=== PATIENT | female | born 1940 | race Caucasian/White ===

== ENCOUNTER 2016-08-26 14:33 | Inpatient (IN) | payer OTHER ==
[2016-08-26] MEDS ORDERED: ASPIRIN 81 MG CHEWABLE TABLETS PO ONE (16:44)
--- NOTE | 2016-08-26 16:47 | PDOC ---
History of Present Illness - History of Present Illness Initial Comments: 08/26/16 17:54 The patient is a 75-year-old female with a significant past medical history of hypertension, coronary disease, atrial fibrillation on Coumadin, and pacemaker, who presents to the emergency department for palpitations and chest pressure today. She states her palpitations have been intermittent for about a week. The patient states that today she experienced an episode of chest pressure that radiated to her back but now resolved. She states she felt lightheaded with her palpitations. She reports she is due for a check up of her pacemaker with [employer] this upcoming Wednesday. She denies any recent illnesses, fevers, chills, cough, vomiting. She denies chest pain right now at this moment but feels generally fatigued. Allergies: Penicillins PCP - Dr. Carbone <Fidelia Vásquez - Last Filed: 08/26/16 18:46> - General History Source: Patient, Family, Old Records Exam Limitations: No Limitations <Anthony Boles - Last Filed: 08/26/16 18:50> - General Chief Complaint: Palpitations Stated Complaint: HEART PALPITATIONS Time Seen by Provider: 08/26/16 16:18 Past History <Fidelia Vásquez - Last Filed: 08/26/16 18:46> - Past Medical History Anemia: No Asthma: No Cancer: Yes (SKIN CA- EARLOBE) Cardiac Disorders: Yes (CORONARY ARTERY DISEASE) CVA: No COPD: No CHF: No Dementia: No Diabetes: No GI Disorders: Yes (GASTRITIS, diverticlitis) Disorders: No HTN: Yes Hypercholesterolemia: No Liver Disease: (FATTY LIVER) Suicide Attempt (Hx): No Seizures: No Thyroid Disease: No - Surgical History Abdominal Surgery: No Appendectomy: No Cardiac Surgery: Yes (PACEMAKER IMPLANT-[employer]-02/2011) Cholecystectomy: No Lung Surgery: No Neurologic Surgery: No Orthopedic Surgery: No - Family Disease History Family Disease History: Heart Disease: Father - Immunization History Immunization Up to Date: Yes - Psycho/Social/Smoking Cessation Hx Anxiety: No Suicidal Ideation: No Smoking Status: Yes Smoking History: Never smoked Have you smoked in the past 12 months: No Number of Cigarettes Smoked Daily: 0 If you are a former smoker, when did you quit?: 25 yrs Hx Alcohol Use: No Drug/Substance Use Hx: No Substance Use Type: None Hx Substance Use Treatment: No <Humaira Bolesel - Last Filed: 08/26/16 18:50> - Past Medical History Allergies/Adverse Reactions: Allergies Allergy/AdvReac Type Severity Reaction Status Date / Time Penicillins AdvReac Itching Verified 08/26/16 16:55 Home Medications: Ambulatory Orders Warfarin Sodium [Coumadin] 5 mg PO ASDIR 06/07/14 Sotalol HCl [Betapace -] 80 mg PO BID #28 tablet 06/10/14 Esomeprazole Mag Trihydrate [Nexium] 40 mg PO DAILY 11/22/14 Diltiazem Cd [Cardizem Cd -] 300 mg PO DAILY #30 cap.cd.24h 03/15/15 Valsartan [Diovan] 160 mg PO DAILY #14 tablet 03/15/15 Warfarin Na [Coumadin] 2.5 mg PO ASDIR 09/24/15 Review of Systems - Review of Systems Able to Perform ROS?: Yes Comments:: 08/26/16 17:54 GENERAL/CONSTITUTIONAL: No fever or chills. No weakness. HEAD, EYES, EARS, NOSE AND THROAT: No change in vision. No ear pain or discharge. No sore throat. CARDIOVASCULAR: (+) chest pressure and palpitations. No chest pain or shortness of breath. RESPIRATORY: No cough, wheezing, or hemoptysis. GASTROINTESTINAL: No nausea, vomiting, diarrhea or constipation. GENITOURINARY: No dysuria, frequency, or change in urination. MUSCULOSKELETAL: No joint or muscle swelling or pain. No neck or back pain. SKIN: No rash NEUROLOGIC: No headache, vertigo, loss of consciousness, or change in strength/ sensation. ENDOCRINE: No increased thirst. No abnormal weight change. HEMATOLOGIC/LYMPHATIC: No anemia, easy bleeding, or history of blood clots. ALLERGIC/IMMUNOLOGIC: No hives or skin allergy. <Fidelia Vásquez - Last Filed: 08/26/16 18:46> *Physical Exam - Vital Signs Last Vital Signs Temp Pulse Resp BP Pulse Ox 97.7 F 60 20 138/50 97 08/26/16 14:37 08/26/16 14:37 08/26/16 14:37 08/26/16 14:37 08/26/16 14:37 - Physical Exam Comments: 08/26/16 17:55 GENERAL: Awake, alert, and fully oriented, in no acute distress HEAD: No signs of trauma EYES: PERRLA, EOMI, sclera anicteric, conjunctiva clear ENT: Auricles normal inspection, hearing grossly normal, nares patent, oropharynx clear without exudates. Moist mucosa NECK: Normal ROM, supple, no lymphadenopathy, JVD, or masses LUNGS: Breath sounds equal, clear to auscultation bilaterally. No wheezes, and no crackles HEART: (+) Pacemaker on left. Regular rate and rhythm, normal S1 and S2, no murmurs, rubs or gallops ABDOMEN: Soft, nontender, normoactive bowel sounds. No guarding, no rebound. No masses EXTREMITIES: Normal range of motion, no edema. No clubbing or cyanosis. No cords, erythema, or tenderness NEUROLOGICAL: Cranial nerves II-XII intact. Normal speech, normal gait. Sensation intact in upper and lower extremities. 5/5 motor strength in upper and lower extremities. No pronator drift. Finger to nose intact. Rapid alternations intact. SKIN: Warm, Dry, normal turgor, no rashes or lesions noted. <Fidelia Vásquez - Last Filed: 08/26/16 18:46> - Vital Signs Last Vital Signs Temp Pulse Resp BP Pulse Ox 97.7 F 60 20 138/50 97 08/26/16 14:37 08/26/16 14:37 08/26/16 14:37 08/26/16 14:37 08/26/16 14:37 <Anthony Boles - Last Filed: 08/26/16 18:50> Heart Score/ECG Review - History History: Moderately suspicious - Electrocardiogram EKG: Non specific repolarization disturbance - Age Age: >/= 65 - Risk Factors Based on the list above the patient has:: >/=3 risk factors or Hx atherosclerotic disease - Troponin Troponin: </= normal limit - Score Heart Score - Total: 6 #1 ECG reviewed & interpreted by me at: 17:00 08/26/16 17:04 Paced, LBBB (old), QTC 524 msec, scarbossa negative <Anthony Boles - Last Filed: 08/26/16 18:50> ED Treatment Course - LABORATORY CBC & Chemistry Diagram: 08/26/16 16:40 08/26/16 16:40 - ADDITIONAL ORDERS Additional order review: Laboratory Results 08/26/16 08/26/16 16:40 16:40 INR 2.34 H PTT (Actin FS) 46.6 H Sodium 141 Potassium 4.5 Chloride 106 Carbon Dioxide 28 Anion Gap 7 L BUN 14 Creatinine 0.9 Creat Clearance w eGFR > 60 Random Glucose 107 H Calcium 8.7 Total Bilirubin 0.2 AST 18 D ALT 16 D Alkaline Phosphatase 69 Creatine Kinase 66 Troponin I < 0.02 B-Natriuretic Peptide 341.88 Total Protein 7.2 Albumin 3.6 TSH 2.68 08/26/16 16:40 RBC 4.36 MCV 89.2 MCHC 31.6 L RDW 15.1 MPV 8.5 Neutrophils % 63.3 Lymphocytes % 22.8 Monocytes % 9.9 Eosinophils % 3.1 Basophils % 0.9 - RADIOLOGY Radiograph Interpretation: 08/26/16 18:46 CXR was read by Dr. Mendiola at 17:15 Impression: interval mild bibasal atelectatic changes without definite infiltrates - Medications Given in the ED: ED Medications Discontinued Medications Generic Name Dose Route Start Last Admin Trade Name Freq PRN Reason Stop Dose Admin Aspirin 162 mg 08/26/16 16:44 08/26/16 16:54 Asa - PO 08/26/16 16:45 Not Given ONCE ONE <Fidelia Vásquez - Last Filed: 08/26/16 18:46> - LABORATORY CBC & Chemistry Diagram: 08/26/16 16:40 08/26/16 16:40 - RADIOLOGY Radiology Studies Ordered: Category Date Time Status CHEST X-RAY PORTABLE* [RAD] Stat Radiology 08/26/16 16:20 Ordered <Anthony Boles - Last Filed: 08/26/16 18:50> Medical Decision Making - Medical Decision Making 08/26/16 18:12 [employer] was called for interrogation of the patient's pacemaker ([id number] [phone]) at 17:10. The digital media representative returned the call at 17:16 and the patient's case was discussed. 08/26/16 18:23 The hospitalist aura was paged at this time for admission of Dr. Carbone's patient. <Fidelia Vásquez - Last Filed: 08/26/16 18:46> - Medical Decision Making 08/26/16 16:45 A portion of this note was documented by scribe services under my direction. I have reviewed the details of the note, within reason, and agree with the documentation with the following case summary and management plan written by me. Patient treated in the ED. Nursing notes are reviewed and incorporated into the medical decision-making. Vital signs reviewed. Peripheral IV access obtained by the nurse, laboratory studies are drawn and sent, reviewed and interpreted by myself. Vital Signs Temp Pulse Resp BP Pulse Ox 97.7 F 60 20 138/50 97 08/26/16 14:37 08/26/16 14:37 08/26/16 14:37 08/26/16 14:37 08/26/16 14:37 75-year-old female with history of hypertension, coronary disease, atrial fibrillation on Coumadin, pacemaker presents to the emergency department for palpitations and chest pressure. She is had an intermittent rapid palpitations that come and go for the last week. However, she noted today that she had an episode of chest pressure that radiated to the back but now resolved. She felt lightheaded with her palpitations. She is due for check up of her pacemaker with [employer] this upcoming Wednesday. She denies any recent illnesses, fevers, chills, cough, vomiting. Denies chest pain right now at this moment but feels generally fatigued. The differential is broad but reportedly must rule out AR. With the palpitations and cardiac disease, must rule out atrial fibrilation with rapid ventricular response, ventricular dysrhythmias or other arrhythmias. We'll need to rule out other metabolic causes as well as infectious causes. Ultram, the patient benefit from an observation in the hospital. 08/26/16 18:48 Chest x-ray reviewed. No infiltrates appreciated. CBC, BMP 08/26/16 16:40 08/26/16 16:40 CMP Sodium 141 mmol/L (136-145) 08/26/16 16:40 Potassium 4.5 mmol/L (3.5-5.1) 08/26/16 16:40 Chloride 106 mmol/L (98-107) 08/26/16 16:40 Carbon Dioxide 28 mmol/L (21-32) 08/26/16 16:40 Anion Gap 7 (8-16) L 08/26/16 16:40 BUN 14 mg/dL (7-18) 08/26/16 16:40 Creatinine 0.9 mg/dL (0.55-1.02) 08/26/16 16:40 Creat Clearance w eGFR > 60 (>60) 08/26/16 16:40 Random Glucose 107 mg/dL (74-106) H 08/26/16 16:40 Calcium 8.7 mg/dL (8.5-10.1) 08/26/16 16:40 Total Bilirubin 0.2 mg/dL (0.2-1.0) 08/26/16 16:40 AST 18 U/L (15-37) D 08/26/16 16:40 ALT 16 U/L (12-78) D 08/26/16 16:40 Alkaline Phosphatase 69 U/L (45-117) 08/26/16 16:40 Creatine Kinase 66 IU/L (26-192) 08/26/16 16:40 Troponin I < 0.02 ng/ml (0.00-0.05) 08/26/16 16:40 B-Natriuretic Peptide 341.88 pg/ml (5-450) 08/26/16 16:40 Total Protein 7.2 g/dl (6.4-8.2) 08/26/16 16:40 Albumin 3.6 g/dl (3.4-5.0) 08/26/16 16:40 TSH 2.68 uIU/ml (0.358-3.74) 08/26/16 16:40 Urine Test Results Urine Color Colorless 08/26/16 17:50 Urine Appearance Clear 08/26/16 17:50 Urine pH 7.0 (5.0-8.0) 08/26/16 17:50 Ur Specific [place] 1.005 (1.001-1.035) 08/26/16 17:50 Urine Protein Negative (NEGATIVE) 08/26/16 17:50 Urine Glucose (UA) Negative (NEGATIVE) 08/26/16 17:50 Urine Ketones Negative (NEGATIVE) 08/26/16 17:50 Urine Blood 2+ (NEGATIVE) H 08/26/16 17:50 Urine Nitrite Negative (NEGATIVE) 08/26/16 17:50 Urine Bilirubin Negative (NEGATIVE) 08/26/16 17:50 Ur Leukocyte Esterase Negative (NEGATIVE) 08/26/16 17:50 Urine RBC 4 /hpf (0-3) 01/04/17 17:50 Urine WBC <1 /hpf (3-5) 08/26/16 17:50 Ur Epithelial Cells Rare /hpf (FEW) 08/26/16 17:50 Labs reviewed. Negative troponin. Case discussed with [employer]. They will place on her on schedule tomorrow for interrogation. Pt's residential roofer is Dr. Ng's group. Case discussed with Dr. Schofield who accepts the patient for telemetry admission. Pt was given aspirin but she refused, given that she is concerned about taking coumadin and afraid of excessive bleeding. <Anthony Boles - Last Filed: 08/26/16 18:50> *DC/Admit/Observation/Transfer - Attestations Scribe Attestion: 08/26/16 17:55 Documentation prepared by Fidelia Vásquez, acting as certified medical records coder for Anthony Boles MD, MD <Fidelia Vásquez - Last Filed: 08/26/16 18:46> - Discharge Dispostion Admit: Yes <Anthony Boles - Last Filed: 08/26/16 18:50> Diagnosis at time of Disposition: Heart palpitations Chest pain Qualifiers: Chest pain type: unspecified Qualified Code(s): R07.9 - Chest pain, unspecified - Discharge Dispostion Condition at time of disposition: Stable - Referrals Referrals: Ellen Carbone MD [Primary Care Provider] -
[2016-08-26] MEDS ORDERED: ASPIRIN 81 MG CHEWABLE TABLETS ONE (16:50)
[2016-08-26 16:58] LABS: BASOPHIL 0.9 % (0-2.0); EOSINOPHIL 3.1 % (0-4.5); MCH 28.2 pg (25.7-33.7); MCHC 31.6 g/dl (32.0-36.0); MEAN CELL VOLUME 89.2 fl (80-96); MEAN PLT VOLUME 8.5 fl (7.5-11.1); NEUTROPHILS 63.3 % (42.8-82.8); PLATELET COUNT 239 K/MM3 (134-434); RDW 15.1 % (11.6-15.6); WHITE BLOOD COUNT 9.7 K/mm3 (4.0-10.0)
[2016-08-26 17:18] LABS: INR 2.34 (0.82-1.09); PROTHROMBIN TIME (PATIENT) 26.2 SEC (9.98-11.88)
[2016-08-26 17:21] LABS: ACTIVATED PTT 46.6 SECONDS (26.9-34.4)
[2016-08-26 17:28] LABS: ALBUMIN 3.6 g/dl (3.4-5.0); ANION GAP 7 (8-16); BILIRUBIN,TOTAL 0.2 mg/dL (0.2-1.0); CALCIUM 8.7 mg/dL (8.5-10.1); CO2 28 mmol/L (21-32); CREATININE 0.9 mg/dL (0.55-1.02); GLUCOSE,RANDOM 107 mg/dL (74-106); SGOT/AST 18 U/L (15-37); SGPT/ALT 16 U/L (12-78); TOT PROT 7.2 g/dl (6.4-8.2)
[2016-08-26 17:36] LABS: ALK PHOS 69 U/L (45-117); THYROID STIMULATING HORMONE 2.68 uIU/ml (0.358-3.74); TROPONIN I < 0.02 ng/ml (0.00-0.05)
[2016-08-26 18:08] LABS: URINE APPEARANCE CLEAR; URINE BILIRUBIN NEGATIVE (NEGATIVE); URINE COLOR COLORLESS; URINE GLUCOSE (UA) NEGATIVE (NEGATIVE); URINE KETONE NEGATIVE (NEGATIVE); URINE LEUK ESTERASE NEGATIVE (NEGATIVE); URINE NITRITE NEGATIVE (NEGATIVE); URINE PROTEIN NEGATIVE (NEGATIVE); URINE UROBILINOGEN NEGATIVE E.U./dl (0.2-1.0)
[2016-08-26 18:10] LABS: URINE BLOOD 2+ (NEGATIVE)
[2016-08-26 18:13] LABS: URINE RBC 4 /hpf (0-3); URINE WBC <1 /hpf (3-5)
[2016-08-26] MEDS ORDERED: WARFARIN NA 5 MG TABLET (UD) PO SCH (20:00)
[2016-08-26] MEDS ORDERED: ACETAMINOPHEN 325 MG TABLET (FP) PO PRN (20:02)
--- NOTE | 2016-08-26 20:14 | PN ---
<Evi Medina - Last Filed: 08/26/16 20:13> Teaching Attending Note Name of Resident: Raquelkeven Salazar <Cyndie Curiel - Last Filed: 08/27/16 02:33> Teaching Attending Note ATTENDING PHYSICIAN STATEMENT I saw and evaluated the patient. I reviewed the resident's note and discussed the case with the resident. I agree with the resident's findings and plan as documented. SUBJECTIVE: 75 year old female who presented to the ED with palpitations for 1 day. History significant for hypertension, dyslipidemia, CAD with pacemaker, Afib (on Coumadin). Patient follows up with her PMD for her checking her INR and is currently on Coumadin 5 mg on M,, and 2.5 mg on , , Wed, Wed. Patient reports following up with her grain mill worker every 3 months and is due for her ICD interrogation this Wednesday. She denies nausea, vomiting or regurgitation. She refuses influenza vaccination. Patient denies any chest pain, SOB or peripheral edema. PMD - Dr. Carbone Insurance Advisor - Dr. Scott PMH: as documented above PSH: pacemaker placement FMH: father - heart disease SH: former smoker quit 25 years ago, denies alcohol and illicit drug use. lives in assisted living OBJECTIVE: Physical: VS: Last Vital Signs Temp Pulse Resp BP Pulse Ox 97.7 F 58 L 16 157/87 99 08/26/16 14:37 08/26/16 20:02 08/26/16 20:02 08/26/16 20:02 08/26/16 20:02 GENERAL: Awake, alert, and fully oriented, in no acute distress HEENT: Atraumatic. PERRLA, EOMI. Moist mucosa. No JVD, no bruis LUNGS: Left mild basal crackles. No distress, speaks full sentences. HEART: Regular rate and rhythm, normal S1 and S2, no murmurs, rubs or gallops, peripheral pulses normal and equal bilaterally. ABDOMEN: Soft, nontender, normoactive bowel sounds. No guarding, no rebound. No masses EXTREMITIES: trace peripheral edema. Normal inspection, Normal range of motion No clubbing or cyanosis. NEUROLOGICAL: Cranial nerves II through XII grossly intact. Normal speech, No focal sensorimotor deficits SKIN: Warm, Dry, normal turgor, no rashes or lesions noted. LABS: CBCD WBC 9.7 K/mm3 (4.0-10.0) 08/26/16 16:40 RBC 4.36 M/mm3 (3.60-5.2) 08/26/16 16:40 Hgb 12.3 GM/dL (10.7-15.3) 08/26/16 16:40 Hct 38.9 % (32.4-45.2) 08/26/16 16:40 MCV 89.2 fl (80-96) 08/26/16 16:40 MCHC 31.6 g/dl (32.0-36.0) L 08/26/16 16:40 RDW 15.1 % (11.6-15.6) 08/26/16 16:40 Plt Count 239 K/MM3 (134-434) 08/26/16 16:40 MPV 8.5 fl (7.5-11.1) 08/26/16 16:40 CMP Sodium 141 mmol/L (136-145) 08/26/16 16:40 Potassium 4.5 mmol/L (3.5-5.1) 08/26/16 16:40 Chloride 106 mmol/L (98-107) 08/26/16 16:40 Carbon Dioxide 28 mmol/L (21-32) 08/26/16 16:40 Anion Gap 7 (8-16) L 08/26/16 16:40 BUN 14 mg/dL (7-18) 08/26/16 16:40 Creatinine 0.9 mg/dL (0.55-1.02) 08/26/16 16:40 Creat Clearance w eGFR > 60 (>60) 08/26/16 16:40 Calcium 8.7 mg/dL (8.5-10.1) 08/26/16 16:40 Total Bilirubin 0.2 mg/dL (0.2-1.0) 08/26/16 16:40 AST 18 U/L (15-37) D 08/26/16 16:40 ALT 16 U/L (12-78) D 08/26/16 16:40 Alkaline Phosphatase 69 U/L (45-117) 08/26/16 16:40 Total Protein 7.2 g/dl (6.4-8.2) 08/26/16 16:40 Albumin 3.6 g/dl (3.4-5.0) 08/26/16 16:40 IMAGING: CXR: Impression: Interval mild bibasilar atelectatic changes without definite infiltrates ASSESSMENT AND PLAN: Palpitations most likely secondary to Afib, rate controlled, thyroid disorder ruled out. Rule out ACS. Heart score of 6. - ICD interrogated - Cardiology consult - NAFISA score of 3 - Trend troponins - Continue as cardiac monitoring Afib with subtherapeutic INR 2.3 - Coumadin 5 mg tonight - Repeat coagulation profile in AM - Continue home meds Place on Observation-Tele. Documentation prepared by Cyndie Curiel, acting as medical dir for Evi Medina M.D.
[2016-08-26] MEDS ORDERED: WARFARIN NA 5 MG TABLET (UD) ONE (20:52)
[2016-08-26] MEDS ORDERED: ATORVASTATIN CA 40 MG TABLET (FP) PO SCH (22:00)
--- NOTE | 2016-08-26 22:10 | HP ---
CHIEF COMPLAINT: " i had palpitations but i feel fine now" PCP: Dr. Carbone HISTORY OF PRESENT ILLNESS: This is a 75 yo F with PMH of HTN, CAD, a-fib on Coum, and pacemaker, who presents due to chest discomfort and palpitations. Her palpitations have been on and off for the past week, associated with mild lightheadedness. She states that she has not had any palpitations for 2 month prior to this onset. This morning she experienced an episode of diffuse chest pressure that radiated to her back. She has had similar chest pressure in the past. It lasted an hour and resolved spontaneously. She is scheduled for a pacemaker interrogation with [employer] on Wednesday. She denies chest pain, sob, cough, n/v, diaphoresis, h/a, abd pain or recent illnesses. She currently feels well. ER course was notable for: (1)EKG, CXR (2)Labs (3)asa Recent Travel: denies PAST MEDICAL HISTORY: as above PAST SURGICAL HISTORY: Social History: lives at home Smoking: denies Alcohol: denies Drugs: denies Family History: Allergies Penicillins Adverse Reaction (Verified 08/26/16 16:55) Itching HOME MEDICATIONS: Medication Instructions Recorded Warfarin Sodium [Coumadin] 5 mg PO ASDIR 06/07/14 Sotalol HCl [Betapace -] 80 mg PO BID #28 tablet 06/10/14 Esomeprazole Mag Trihydrate 40 mg PO DAILY 11/22/14 [Nexium] Diltiazem Cd [Cardizem Cd -] 300 mg PO DAILY #30 cap.cd.24h 03/15/15 Valsartan [Diovan] 160 mg PO DAILY #14 tablet 03/15/15 Warfarin Na [Coumadin] 2.5 mg PO ASDIR 09/24/15 Selected Entries 08/26/16 08/26/16 14:37 20:02 Temperature 97.7 F Pulse Rate 60 Pulse Rate [ 58 L Left] Respiratory 16 Rate Blood Pressure 138/50 Blood Pressure 157/87 [Arm] O2 Sat by Pulse 99 Oximetry (%) Oxygen Delivery Room Air Method REVIEW OF SYSTEMS CONSTITUTIONAL: Absent: fever, chills, diaphoresis, generalized weakness HEENT: Absent: rhinorrhea, difficulty swallowing CARDIOVASCULAR: Absent: chest pain, syncope, peripheral edema RESPIRATORY: Absent: cough, shortness of breath, orthopnea GASTROINTESTINAL: Absent: abdominal pain, abdominal distension, nausea, vomiting, diarrhea, constipation GENITOURINARY: Absent: dysuria, flank pain MUSCULOSKELETAL: Absent: neck pain SKIN: Absent: rash HEMATOLOGIC/IMMUNOLOGIC: Absent: frequent infections ENDOCRINE: Absent: unexplained weight gain, unexplained weight loss NEUROLOGIC: Absent: headache, focal weakness or paresthesias PSYCHIATRIC: Absent: anxiety Laboratory Tests 08/26/16 08/26/16 08/26/16 16:40 16:40 16:40 WBC 9.7 Hgb 12.3 Hct 38.9 Plt Count 239 INR 2.34 H PTT (Actin FS) 46.6 H Sodium 141 Potassium 4.5 Chloride 106 Carbon Dioxide 28 Anion Gap 7 L BUN 14 Creatinine 0.9 Creat Clearance w eGFR > 60 Random Glucose 107 H Calcium 8.7 Total Bilirubin 0.2 AST 18 D ALT 16 D Alkaline Phosphatase 69 Creatine Kinase 66 Troponin I < 0.02 B-Natriuretic Peptide 341.88 Total Protein 7.2 Albumin 3.6 TSH 2.68 Urine Color Urine Appearance Urine pH Ur Specific [place] Urine Protein Urine Glucose (UA) Urine Ketones Urine Blood Urine Nitrite Urine Bilirubin Urine Urobilinogen Ur Leukocyte Esterase Urine RBC Urine WBC Ur Epithelial Cells 08/26/16 17:50 WBC Hgb Hct Plt Count INR PTT (Actin FS) Sodium Potassium Chloride Carbon Dioxide Anion Gap BUN Creatinine Creat Clearance w eGFR Random Glucose Calcium Total Bilirubin AST ALT Alkaline Phosphatase Creatine Kinase Troponin I B-Natriuretic Peptide Total Protein Albumin TSH Urine Color Colorless Urine Appearance Clear Urine pH 7.0 Ur Specific [place] 1.005 Urine Protein Negative Urine Glucose (UA) Negative Urine Ketones Negative Urine Blood 2+ H Urine Nitrite Negative Urine Bilirubin Negative Urine Urobilinogen Negative Ur Leukocyte Esterase Negative Urine RBC 4 Urine WBC <1 Ur Epithelial Cells Rare PHYSICAL EXAMINATION GENERAL: Awake, alert, and fully oriented, in no acute distress. HEAD: Normal with no signs of trauma. EYES: Pupils equal, round and reactive to light, extraocular movements intact, sclera anicteric, conjunctiva clear. EARS, NOSE, THROAT: Moist mucous membranes. NECK: supple without JVD LUNGS: Breath sounds equal, clear to auscultation bilaterally. HEART: Regular rate and rhythm, normal S1 and S2 ABDOMEN: Soft, nontender, not distended, normoactive bowel sounds MUSCULOSKELETAL: No CVA tenderness. UPPER EXTREMITIES: 2+ pulses, warm, well-perfused. No peripheral edema. LOWER EXTREMITIES: 2+ pulses, warm, well-perfused. No calf tenderness. No peripheral edema. NEUROLOGICAL: Cranial nerves II-XII grossly intact. Normal speech. PSYCHIATRIC: Cooperative. Good eye contact. Appropriate mood and affect. SKIN: Warm, dry ASSESSMENT/PLAN: This is a 75 yo F with PMH of HTN, CAD, a-fib on Coum, and pacemaker, who presents due to chest discomfort and palpitations. palpitations x 1 w, chest pressure x 1 hr. CXRL mild bibasilar atelectasis Angina pectoralis -likely due to demand ischemia in setting of rapid a-fib -now resolved -EKG regular sinus, no ACS -trop negative x1, trend trop -tele monitoring -continue asa -f/u lipid profile, a1c, TFT Atrial fibrillation -likely rapid a fib over the past week, now regular sinus -continue sotalol, cardizem and coum -pacemaker interrogation tomorrow AM HTN -continue diovan HLD -continue statin FEN no IVF stable lytes DVT GI PPX: coum, ppi Na restricted diet Dispo: Obs in tele Problem List - Problem (1) Chest pain Code(s): R07.9 - CHEST PAIN, UNSPECIFIED Qualifiers: Chest pain type: unspecified Qualified Code(s): R07.9 - Chest pain, unspecified (2) Heart palpitations Code(s): R00.2 - PALPITATIONS (3) DVT prophylaxis Code(s): [id number] - (4) Hypertension Code(s): I10 - ESSENTIAL (PRIMARY) HYPERTENSION Visit type - Emergency Visit Emergency Visit: Yes ED Registration Date: 08/26/16 Care time: The patient presented to the Emergency Department on the above date and was hospitalized for further evaluation of their emergent condition. - New Patient This patient is new to me today: Yes Date on this admission: 08/27/16 - Critical Care Critical Care patient: No
[2016-08-26] MEDS: SOTALOL HCL 80 MG TABLET (FP) PO SCH (22:14)
[2016-08-27 00:57] VITALS: BMI 26.5
[2016-08-27 07:36] LABS: BASOPHIL 0.8 % (0-2.0); EOSINOPHIL 3.5 % (0-4.5); MCH 29.2 pg (25.7-33.7); MCHC 32.7 g/dl (32.0-36.0); MEAN CELL VOLUME 89.2 fl (80-96); MEAN PLT VOLUME 8.8 fl (7.5-11.1); NEUTROPHILS 62.6 % (42.8-82.8); PLATELET COUNT 207 K/MM3 (134-434); RDW 14.7 % (11.6-15.6); WHITE BLOOD COUNT 7.7 K/mm3 (4.0-10.0)
[2016-08-27 07:38] LABS: ALBUMIN 3.2 g/dl (3.4-5.0); ANION GAP 8 (8-16); CALCIUM 8.6 mg/dL (8.5-10.1); CHOLESTEROL 199 mg/dL (50-200); CO2 27 mmol/L (21-32); CREATININE 0.7 mg/dL (0.55-1.02); GLUCOSE,RANDOM 93 mg/dL (74-106); MAGNESIUM 2.1 mg/dL (1.8-2.4); SGOT/AST 16 U/L (15-37); SGPT/ALT 14 U/L (12-78)
--- NOTE | 2016-08-27 07:47 | PN ---
Progress Note, Physician History of Present Illness: patient of dr Carbone admitted to my service seen by hospitalist last night I will take over the care of the patient 75-year-old female with a significant past medical history of hypertension, coronary disease, atrial fibrillation on Coumadin, and pacemaker, who presents to the emergency department for palpitations and chest pressure yesterday. She states her palpitations have been intermittent for about a week. The patient states that she experienced an episode of chest pressure that radiated to her back but now resolved. She states she felt lightheaded with her palpitations. She reports she is due for a check up of her pacemaker with pulses scientific this upcoming Wednesday. This am pt offers no complaints of chest pain or palpitaions sitting in bed comfortable - Current Medication List Current Medications: Active Medications Acetaminophen (Tylenol -) 650 mg PO Q4H PRN PRN Reason: FEVER OR PAIN Aspirin (Ecotrin -) 162 mg PO DAILY [facility] Atorvastatin Calcium (Lipitor -) 40 mg PO HS [facility] Last Admin: 08/26/16 22:14 Dose: 40 mg Diltiazem HCl 180 mg/ (Diltiazem HCl 120 mg) 300 mg PO DAILY [facility] Pantoprazole Sodium (Protonix -) 40 mg PO DAILY [facility] Sotalol HCl (Betapace -) 80 mg PO BID [facility] Last Admin: 08/26/16 22:14 Dose: 80 mg Valsartan (Diovan -) 160 mg PO DAILY [facility] Warfarin Sodium (Coumadin -) 5 mg PO ASDIR [facility] Last Admin: 08/26/16 20:53 Dose: 5 mg - Objective Vital Signs: Vital Signs Temperature 97.9 F 08/27/16 06:00 Pulse Rate 63 08/27/16 06:00 Respiratory Rate 18 08/27/16 06:00 Blood Pressure 123/56 08/27/16 06:00 O2 Sat by Pulse Oximetry (%) 98 08/27/16 00:47 Cardiovascular: Yes: Murmur, S1, S2 Respiratory: Yes: Regular, CTA Bilaterally Gastrointestinal: Yes: Normal Bowel Sounds, Soft. No: Tenderness Edema: No Neurological: Yes: Alert, Oriented Labs: INR, PTT INR 2.34 (0.82-1.09) H 08/26/16 16:40 Problem List - Problems (1) Chest pain Assessment/Plan: no further chest pain--pt states had discomfort wth palpitations but feels fine now Troponin, BNP 08/26/16 08/27/16 08/27/16 16:40 00:30 06:00 Troponin I < 0.02 < 0.02 < 0.02 B-Natriuretic Peptide 341.88 cardio consult Code(s): R07.9 - CHEST PAIN, UNSPECIFIED Qualifiers: Chest pain type: unspecified Qualified Code(s): R07.9 - Chest pain, unspecified (2) Heart palpitations Assessment/Plan: resolved may have been afib monitor on tele Code(s): R00.2 - PALPITATIONS (3) Hypertension Assessment/Plan: controlled Code(s): I10 - ESSENTIAL (PRIMARY) HYPERTENSION (4) Afib Assessment/Plan: continue with coumadin INR, PTT INR 2.34 (0.82-1.09) H 08/26/16 16:40 Code(s): I48.91 - UNSPECIFIED ATRIAL FIBRILLATION (5) Pacemaker Assessment/Plan: Interrogation Code(s): Z95.0 - PRESENCE OF CARDIAC PACEMAKER
[2016-08-27 07:48] LABS: ALK PHOS 65 U/L (45-117); BILIRUBIN,TOTAL 0.3 mg/dL (0.2-1.0); LDL CHOLESTEROL (ONLY SJRH) 118 mg/dL (5-100); THYROID STIMULATING HORMONE 3.06 uIU/ml (0.358-3.74); TOT PROT 6.6 g/dl (6.4-8.2); TROPONIN I < 0.02 ng/ml (0.00-0.05)
[2016-08-27] MEDS ORDERED: ASPIRIN COATED 81 MG TABLET.EC PO SCH (10:00)
[2016-08-27] MEDS ORDERED: DILTIAZEM CD 180 MG, DILTIAZEM CD 120 MG PO SCH (10:00)
[2016-08-27] MEDS ORDERED: PANTOPRAZOLE 40 MG TABLET (FP) PO SCH (10:00)
[2016-08-27] MEDS ORDERED: VALSARTAN 160 MG TABLET (UD) PO SCH (10:00)
[2016-08-27] MEDS: SOTALOL HCL 80 MG TABLET (FP) PO SCH (10:14)
[2016-08-27 10:46] VITALS: BP 127/58; PULSE 64; TEMP 98
--- NOTE | 2016-08-27 11:19 | CONSULT ---
Consult Consult Specialty:: Cardiology Referred by:: Gabe Negrete MD Reason for Consultation:: Palpitations - History of Present Illness Chief Complaint: Palpitations History of Present Illness: This is a 75 year old female with a history of moderately obstructive CAD with endothelial dysfunction on angiography November 2010 for medical therapy, HTN, diastolic dysfunction, paroxysmal afib on warfarin [id number], sick sinus syndrome s/p pacemaker, hyperlipidemia, mild carotid stenosis, interstitial lung disease, degenerative joint disease referred to the ED for intermittent palpitations with associated sxs of chest pain radiating to back and lightheadedness over past week since resolved. She denies dyspnea, true syncope , orthopnea, PND or LE edema. EKG shows atrial pacing, pacer interrogation shows normal function, episodes of mode switches c/w PAF, currently asymptomatic , reports medication compliance. - History Source History Provided By: Patient Limitations to Obtaining History: No Limitations - Past Medical History Cardio/Vascular: Yes: AFIB, CAD, HTN, Hyperlipdemia ...: No - Past Surgical History Past Surgical History: Yes: Permanent Pacemaker - Alcohol/Substance Use Hx Alcohol Use: No History of Substance Use: reports: None - Smoking History Smoking history: Former smoker Have you smoked in the past 12 months: No Aproximately how many cigarettes per day: 0 If you are a former smoker, when did you quit?: 25 yrs Home Medications - Allergies Allergies/Adverse Reactions: Allergies Allergy/AdvReac Type Severity Reaction Status Date / Time Penicillins AdvReac Itching Verified 08/26/16 16:55 - Home Medications Home Medications: Ambulatory Orders Warfarin Sodium [Coumadin] 5 mg PO ASDIR 06/07/14 Sotalol HCl [Betapace -] 80 mg PO BID #28 tablet 06/10/14 Esomeprazole Mag Trihydrate [Nexium] 40 mg PO DAILY 11/22/14 Diltiazem Cd [Cardizem Cd -] 300 mg PO DAILY #30 cap.cd.24h 03/15/15 Valsartan [Diovan] 160 mg PO DAILY #14 tablet 03/15/15 Warfarin Na [Coumadin] 2.5 mg PO ASDIR 09/24/15 Review of Systems - Review of Systems Cardiovascular: reports: Chest Pain, Palpitations Vital Signs: Vital Signs Temperature 98.0 F 08/27/16 10:00 Pulse Rate 64 08/27/16 10:00 Respiratory Rate 18 08/27/16 10:00 Blood Pressure 127/58 08/27/16 10:00 O2 Sat by Pulse Oximetry (%) 98 08/27/16 09:00 Constitutional: Yes: No Distress, Calm Neck: Yes: Supple Respiratory: Yes: Regular, CTA Bilaterally Gastrointestinal: Yes: Normal Bowel Sounds, Soft Cardiovascular: Yes: Regular Rate and Rhythm JVD: No Carotid Bruit: No Heart Sounds: Yes: S1, S2 Murmur: Yes: Systolic Murmur, Grade 2 Edema: No - Other Data Labs, Other Data: CBC, BMP 08/27/16 06:00 08/27/16 06:00 INR, PTT INR 2.34 (0.82-1.09) H 08/26/16 16:40 Troponin, BNP 08/27/16 08/27/16 00:30 06:00 Troponin I < 0.02 < 0.02 Troponin, BNP 08/27/16 08/27/16 00:30 06:00 Troponin I < 0.02 < 0.02 A-paced @ 60 LBBB Ejection Fraction %: LVEF > or = 40 % Imaging - Results Chest X-ray: Report Reviewed (Mild bibasilar ATX) Problem List - Problems (1) Afib Code(s): I48.91 - UNSPECIFIED ATRIAL FIBRILLATION Qualifiers: Atrial fibrillation type: paroxysmal Qualified Code(s): I48.0 - Paroxysmal atrial fibrillation (2) Chest pain Code(s): R07.9 - CHEST PAIN, UNSPECIFIED Qualifiers: Chest pain type: unspecified Qualified Code(s): R07.9 - Chest pain, unspecified (3) Heart palpitations Code(s): R00.2 - PALPITATIONS (4) Pacemaker Code(s): Z95.0 - PRESENCE OF CARDIAC PACEMAKER (5) Hypertension Code(s): I10 - ESSENTIAL (PRIMARY) HYPERTENSION Qualifiers: Hypertension type: essential hypertension Qualified Code(s): I10 - Essential (primary) hypertension (6) Coronary artery disease Code(s): I25.10 - ATHSCL HEART DISEASE OF [place] CORONARY ARTERY W/O ANG PCTRS Qualifiers: Coronary Disease-Associated Artery/Lesion type: [place] artery [place] vs. transplanted heart: [place] heart Associated angina: with stable angina Qualified Code(s): I25.119 - Atherosclerotic heart disease of [place] coronary artery with unspecified angina pectoris (7) Diastolic dysfunction without heart failure Code(s): I51.9 - HEART DISEASE, UNSPECIFIED (8) Sick sinus syndrome Code(s): I49.5 - SICK SINUS SYNDROME (9) Mild aortic valve stenosis Code(s): I35.0 - NONRHEUMATIC AORTIC (VALVE) STENOSIS (10) Hyperlipidemia Code(s): E78.5 - HYPERLIPIDEMIA, UNSPECIFIED Qualifiers: Hyperlipidemia type: pure hypercholesterolemia Qualified Code(s): E78.0 - Pure hypercholesterolemia Assessment/Plan 05/17/2015 Echo: cLVH with preserved LV fxn, ARELY 1.6 cm^2, mild LAE 4.7 cm, eccentric mod MR, mod AR, mild TR RVSP 41 mmHg 01/31/2014 P-Myoview No ischemia LVEF 84% 1. Palpitations referable to paroxysmal atrial fibrillation and PAC currently in sinus rhythm on antiarrhythmic therapy with therapeutic INR 2. Chest pain syndrome with underlying CAD moderately obstructive CAD angina pectoris for medical therapy 3. Sick sinus syndrome Post PPM 4. HTN 5. Hypercholesterolemia 6. Chronic pancreatitis on Creon PLAN: 1. Ruled out for [place] 2. Increase Cardizem CD 360 qd, continue Sotolol 80 mg bid, Pravachol 40 qd and Diovan 160 qd 3. Dose Coumadin 2.5 qd per INR 4. December d/c with f/u in office with Dr. Scott, has echo appt Sep 03, 2016, will schedule P-Myoview as outpatient 5. Thank you for consultative opportunity
--- NOTE | 2016-08-27 13:26 | DS ---
Physical Examination Vital Signs: Vital Signs Temperature 98.0 F 08/27/16 10:00 Pulse Rate 64 08/27/16 10:00 Respiratory Rate 18 08/27/16 10:00 Blood Pressure 127/58 08/27/16 10:00 O2 Sat by Pulse Oximetry (%) 98 08/27/16 09:00 Labs: CBC, BMP 08/27/16 06:00 08/27/16 06:00 Discharge Summary Reason For Visit: CHEST PAIN /HEART PALPITATIONS Current Active Problems Afib (Acute) Chest pain (Acute) Coronary artery disease (Acute) Diastolic dysfunction without heart failure (Acute) Heart palpitations (Acute) Hyperlipidemia (Acute) Mild aortic valve stenosis (Acute) Pacemaker (Acute) Sick sinus syndrome (Acute) Hospital Course: 75-year-old female with a significant past medical history of hypertension, coronary disease, atrial fibrillation on Coumadin, and pacemaker, who presents to the emergency department for palpitations and chest pressure yesterday. She states her palpitations have been intermittent for about a week. The patient states that she experienced an episode of chest pressure that radiated to her back but now resolved. She states she felt lightheaded with her palpitations. She reports she is due for a check up of her pacemaker with pulses scientific this upcoming Wednesday. This am pt offers no complaints of chest pain or palpitaions sitting in bed comfortable Problems (1) Chest pain Assessment/Plan: no further chest pain--pt states had discomfort wth palpitations but feels fine now Troponin, BNP 08/26/16 08/27/16 08/27/16 16:40 00:30 06:00 Troponin I < 0.02 < 0.02 < 0.02 B-Natriuretic Peptide 341.88 cardio consult Code(s): R07.9 - CHEST PAIN, UNSPECIFIED Qualifiers: Chest pain type: unspecified Qualified Code(s): R07.9 - Chest pain, unspecified (2) Heart palpitations Assessment/Plan: resolved may have been afib monitor on tele Code(s): R00.2 - PALPITATIONS (3) Hypertension Assessment/Plan: controlled Code(s): I10 - ESSENTIAL (PRIMARY) HYPERTENSION (4) Afib Assessment/Plan: continue with coumadin INR, PTT INR 2.34 (0.82-1.09) H 08/26/16 16:40 Code(s): I48.91 - UNSPECIFIED ATRIAL FIBRILLATION (5) Pacemaker Assessment/Plan: Interrogation Code(s): Z95.0 - PRESENCE OF CARDIAC PACEMAKER Cardiology Assessment/Plan 05/17/2015 Echo: cLVH with preserved LV fxn, ARELY 1.6 cm^2, mild LAE 4.7 cm, eccentric mod MR, mod AR, mild TR RVSP 41 mmHg 01/31/2014 P-Myoview No ischemia LVEF 84% 1. Palpitations referable to paroxysmal atrial fibrillation and PAC currently in sinus rhythm on antiarrhythmic therapy with therapeutic INR 2. Chest pain syndrome with underlying CAD moderately obstructive CAD angina pectoris for medical therapy 3. Sick sinus syndrome Post PPM 4. HTN 5. Hypercholesterolemia 6. Chronic pancreatitis on Creon PLAN: 1. Ruled out for [place] 2. Increase Cardizem CD 360 qd, continue Sotolol 80 mg bid, Pravachol 40 qd and Diovan 160 qd 3. Dose Coumadin 2.5 qd per INR 4. December d/c with f/u in office with Dr. Scott, has echo appt Sep 03, 2016, will schedule P-Myoview as outpatient 5. Thank you for consultative opportunity Condition: Improved - Instructions Diet, Activity, Other Instructions: take Coumadin as you were taking home blood test for Coumadin with dr Carbone Referrals: Ellen Carbone MD [Primary Care Provider] - 1 Week Disposition: HOME - Home Medications Comprehensive Discharge Medication List: Ambulatory Orders Warfarin Sodium [Coumadin] 5 mg PO ASDIR 06/07/14 Sotalol HCl [Betapace -] 80 mg PO BID #28 tablet 06/10/14 Esomeprazole Mag Trihydrate [Nexium] 40 mg PO DAILY 11/22/14 Valsartan [Diovan] 160 mg PO DAILY #14 tablet 03/15/15 Warfarin Na [Coumadin -] 2.5 mg PO ASDIR 09/24/15 Diltiazem Cd [Cardizem Cd -] 360 mg PO DAILY #30 cap.cd.24h 08/27/16
--- NOTE | 2016-08-27 16:34 | EKG ---
Test Reason : Blood Pressure : / mmHG Vent. Rate : 060 BPM Atrial Rate : 060 BPM P-R Int : 292 ms QRS Dur : 140 ms QT Int : 524 ms P-R-T Axes : 072 -21 118 degrees QTc Int : 524 ms Atrial-paced rhythm LEFT BUNDLE BRANCH BLOCK ABNORMAL ECG Confirmed by ANTONELLA CALLOWAY MD ([id number]) on 08/27/2016 4:34:14 PM Referred By: Confirmed By:ANTONELLA CALLOWAY MD
--- NOTE | 2016-08-27 16:36 | EKG ---
Test Reason : Blood Pressure : / mmHG Vent. Rate : 063 BPM Atrial Rate : 063 BPM P-R Int : 252 ms QRS Dur : 140 ms QT Int : 494 ms P-R-T Axes : 076 -10 122 degrees QTc Int : 505 ms SINUS RHYTHM WITH 1ST DEGREE A-V BLOCK LEFT BUNDLE BRANCH BLOCK ABNORMAL ECG WHEN COMPARED WITH ECG OF 26-AUG-2016 16:56, SINUS RHYTHM HAS REPLACED ELECTRONIC ATRIAL PACEMAKER Confirmed by ELLI JAIN, ANTONELLA ([id number]) on 08/27/2016 4:35:36 PM Referred By: KEYSHAWN BARTON Confirmed By:ANTONELLA CALLOWAY MD
== END 2016-08-27 15:01 | disposition home or self-care (01) | DRG 309 ==
LOC: JER 14:33 → JERBED 19:24 → UNDOADMIN 19:24 → JERBED 20:02 → J4S 21:52
PROVIDERS: ADMIT Family Medicine; ATTEND Family Medicine
DX: I48.0 Paroxysmal atrial fibrillation (principal); J98.11 Atelectasis; K86.1 Other chronic pancreatitis; I25.118 Atherosclerotic heart disease of native coronary artery with other forms of angina pectoris; I10 Essential (primary) hypertension; C44.89 Other specified malignant neoplasm of overlapping sites of skin; K76.0 Fatty (change of) liver, not elsewhere classified; I51.9 Heart disease, unspecified; K29.60 Other gastritis without bleeding; E78.5 Hyperlipidemia, unspecified; I35.0 Nonrheumatic aortic (valve) stenosis; Z95.0 Presence of cardiac pacemaker; Z79.01 Long term (current) use of anticoagulants
CPT/HCPCS: 36415; 71010-TC; 80053; 80061; 81003; 81015; 82550; 83036; 83721; 83735; 83880; 84439; 84443; 84484; 85025; 85610; 85730; 93005; 93010; 99285-25

== ENCOUNTER 2016-10-29 09:16 | Emergency (ER) | payer OTHER ==
[2016-10-29 09:40] VITALS: TEMP 97.7; BMI 26.6
[2016-10-29] MEDS ORDERED: MAG HYDROX/AL HYDROX/SIMETH 355 ML ORAL.SUSP PO ONE (10:34)
[2016-10-29] MEDS ORDERED: FAMOTIDINE 20 MG/50 ML IVPB 50 ML IVPB ONE ×2 (10:34→11:45)
--- NOTE | 2016-10-29 10:46 | PDOC ---
History of Present Illness - General History Source: Patient - History of Present Illness Timing/Duration: reports: constant Abdominal Pain Onset Location: reports: epigastric <Aminta Jara - Last Filed: 10/29/16 14:18> <Goran Mooney - Last Filed: 10/31/16 08:41> - General Chief Complaint: Pain, Acute Stated Complaint: ABD PAIN Time Seen by Provider: 10/29/16 10:14 Past History - Past Medical History Anemia: No Asthma: No Cancer: Yes (SKIN CA- EARLOBE) Cardiac Disorders: Yes (CORONARY ARTERY DISEASE) CVA: No COPD: No CHF: No Dementia: No Diabetes: No GI Disorders: Yes (GASTRITIS, diverticlitis) Disorders: No HTN: Yes Hypercholesterolemia: Yes Liver Disease: (FATTY LIVER) Suicide Attempt (Hx): No Seizures: No Thyroid Disease: No - Surgical History Abdominal Surgery: No Appendectomy: No Cardiac Surgery: Yes (PACEMAKER IMPLANT-Plasmon-02/2011) Cholecystectomy: No Lung Surgery: No Neurologic Surgery: No Orthopedic Surgery: No - Family Disease History Family Disease History: Heart Disease: Father - Immunization History Immunization Up to Date: Yes - Psycho/Social/Smoking Cessation Hx Anxiety: No Suicidal Ideation: No Smoking Status: Yes Smoking History: Never smoked Have you smoked in the past 12 months: No Number of Cigarettes Smoked Daily: 0 If you are a former smoker, when did you quit?: 25 yrs Hx Alcohol Use: No Drug/Substance Use Hx: No Substance Use Type: None Hx Substance Use Treatment: No <Aminta Jara - Last Filed: 10/29/16 14:18> <Goran Mooney - Last Filed: 10/31/16 08:41> - Past Medical History Allergies/Adverse Reactions: Allergies Allergy/AdvReac Type Severity Reaction Status Date / Time Penicillins AdvReac Itching Verified 10/29/16 09:37 Home Medications: Ambulatory Orders Warfarin Sodium [Coumadin] 5 mg PO ASDIR 06/07/14 Sotalol HCl [Betapace -] 80 mg PO BID #28 tablet 06/10/14 Esomeprazole Mag Trihydrate [Nexium] 40 mg PO DAILY 11/22/14 Valsartan [Diovan] 160 mg PO DAILY #14 tablet 03/15/15 Warfarin Na [Coumadin -] 2.5 mg PO ASDIR 09/24/15 Diltiazem Cd [Cardizem Cd -] 360 mg PO DAILY #30 cap.cd.24h 08/27/16 Famotidine [Pepcid] 20 mg PO DAILY #14 tablet 10/29/16 Mag Hydrox/Al Hydrox/Simeth [Mylanta Suspension -] 30 ml PO Q6H #1 bottle Review of Systems - Review of Systems Constitutional: No: Chills, Fever Respiratory: No: Cough, Shortness of Breath Cardiac (ROS): No: Chest Pain ABD/GI: No: Constipated, Diarrhea, Nausea, Vomiting : No: Dysuria Musculoskeletal: Yes: Back Pain <Aminta Jara - Last Filed: 10/29/16 14:18> *Physical Exam - Vital Signs Last Vital Signs Temp Pulse Resp BP Pulse Ox 97.7 F 67 17 118/73 97 10/29/16 09:37 10/29/16 09:37 10/29/16 09:37 10/29/16 09:37 10/29/16 09:37 - Physical Exam General Appearance: Yes: Appropriately Dressed. No: Apparent Distress HEENT: positive: Normal Voice Neck: positive: Supple Respiratory/Chest: positive: Lungs Clear, Normal Breath Sounds. negative: Respiratory Distress Cardiovascular: positive: Regular Rate, S1, S2 Gastrointestinal/Abdominal: positive: Soft. negative: Tender, Distended, Guarding, Rebound Musculoskeletal: negative: CVA Tenderness Extremity: positive: Normal Inspection Integumentary: positive: Dry, Warm Neurologic: positive: Fully Oriented, Alert, Normal Mood/Affect <Aminta Jara - Last Filed: 10/29/16 14:18> - Vital Signs Last Vital Signs Temp Pulse Resp BP Pulse Ox 97.7 F 60 18 138/50 95 10/29/16 14:29 10/29/16 14:29 10/29/16 14:29 10/29/16 14:29 10/29/16 14:29 <Goran Mooney - Last Filed: 10/31/16 08:41> Heart Score/ECG Review - ECG Intrepretation Comment:: 10/29/16 14:19 Paced rhythm <Aminta Jara - Last Filed: 10/29/16 14:18> ED Treatment Course - LABORATORY CBC & Chemistry Diagram: 10/29/16 11:20 10/29/16 11:20 - RADIOLOGY Radiology Studies Ordered: Category Date Time Status CHEST X-RAY PORTABLE* [RAD] Stat Radiology 10/29/16 10:14 Completed <Aminta Jara - Last Filed: 10/29/16 14:18> - LABORATORY CBC & Chemistry Diagram: 10/29/16 11:20 10/29/16 11:20 - ADDITIONAL ORDERS Additional order review: 10/29/16 11:20 RBC 4.52 MCV 89.2 MCHC 32.0 RDW 15.0 MPV 8.3 Neutrophils % 64.2 Lymphocytes % 21.4 Monocytes % 9.9 Eosinophils % 3.5 Basophils % 1.0 - Medications Given in the ED: ED Medications Discontinued Medications Generic Name Dose Route Start Last Admin Trade Name Ricardoq PRN Reason Stop Dose Admin Al Hydroxide/Mg Hydroxide 30 ml 10/29/16 10:34 10/29/16 11:49 Mylanta Suspension - PO 10/29/16 10:35 30 ml ONCE ONE Administration Famotidine/Sodium Chloride 50 mls @ 100 mls/hr 10/29/16 10:34 10/29/16 11:49 Pepcid 20 Mg Premixed Ivpb - IVPB 10/29/16 11:03 100 mls/hr ONCE ONE Administration <VinicioGoran - Last Filed: 10/31/16 08:41> Medical Decision Making - Medical Decision Making 10/29/16 10:36 76-year-old female, [id number] female, history of CAD, paroxysmal A.fib on Coumadin, hypertension, hyperlipidemia, chronic pancreatitis on creon, GERD on Nexium, here with "discomfort" to upper abdomen radiating to her back 1 week, constant for the past 2 days, worse with po intake and on supine position. Feels like her GERD but states nexium is not relieving symptoms. No change in bowel movements, BRBPR, melena, nausea, vomiting, fever or chills. Denies chest pain or shortness of breath. See exam Upper abd pain w/ bloating Similar to pt's GERD -EKG/labs r/o other etiology -symptomatic relief 10/29/16 10:50 10/29/16 13:05 Patient reports significant improvement in symptoms and was able to tolerate by mouth in ED. Will DC to follow-up with PMD and GI 10/29/16 14:19 <Aminta Jara - Last Filed: 10/29/16 14:18> - Medical Decision Making The patient was seen and evaluated in conjunction with MARIA LUISA Gurrola under my direct supervision, ancillary studies were reviewed. I independently interviewed and evaluated the patient and I agree with the plan as outlined by MARIA LUISA Jara . <Goran Mooney - Last Filed: 10/31/16 08:41> *DC/Admit/Observation/Transfer <Aminta Jara - Last Filed: 10/29/16 14:18> <Goran Mooney - Last Filed: 10/31/16 08:41> Diagnosis at time of Disposition: GERD (gastroesophageal reflux disease) Qualifiers: Esophagitis presence: esophagitis presence not specified Qualified Code(s): K21.9 - Gastro-esophageal reflux disease without esophagitis - Discharge Dispostion Disposition: HOME Condition at time of disposition: Improved - Prescriptions Prescriptions: Mag Hydrox/Al Hydrox/Simeth [Mylanta Suspension -] 30 ml PO Q6H #1 bottle Famotidine [Pepcid] 20 mg PO DAILY #14 tablet - Referrals Referrals: Gabe Negrete MD [Primary Care Provider] - Dhiraj Elizabeth MD [Staff Physician] - - Patient Instructions Printed Discharge Instructions: DI for Gastroesophageal Reflux Disease (GERD) Additional Instructions: Shiva la medicacin segn lo prescrito y el seguimiento con romano PMD y el Dr. Elizabeth de la gastroenterologa Print Language: BELGIAN
[2016-10-29] MEDS ORDERED: MAG HYDROX/AL HYDROX/SIMETH 30 ML UNIT-DOSE CUP ONE (11:45)
[2016-10-29 12:01] LABS: EOSINOPHIL 3.5 % (0-4.5); MCH 28.5 pg (25.7-33.7); MEAN CELL VOLUME 89.2 fl (80-96); MEAN PLT VOLUME 8.3 fl (7.5-11.1); NEUTROPHILS 64.2 % (42.8-82.8); PLATELET COUNT 237 K/MM3 (134-434); WHITE BLOOD COUNT 9.5 K/mm3 (4.0-10.0)
[2016-10-29 12:12] LABS: URINE APPEARANCE CLEAR; URINE BILIRUBIN NEGATIVE (NEGATIVE); URINE COLOR YELLOW; URINE GLUCOSE (UA) NEGATIVE (NEGATIVE); URINE KETONE NEGATIVE (NEGATIVE); URINE LEUK ESTERASE NEGATIVE (NEGATIVE); URINE NITRITE NEGATIVE (NEGATIVE); URINE PROTEIN NEGATIVE (NEGATIVE); URINE UROBILINOGEN NEGATIVE E.U./dl (0.2-1.0)
[2016-10-29 12:17] LABS: ALBUMIN 3.7 g/dl (3.4-5.0); CALCIUM 9.4 mg/dL (8.5-10.1)
[2016-10-29 12:25] LABS: URINE BLOOD 2+ (NEGATIVE)
[2016-10-29 12:27] LABS: ALK PHOS 77 U/L (45-117); ANION GAP 9 (8-16); BILIRUBIN,TOTAL 0.3 mg/dL (0.2-1.0); CO2 28 mmol/L (21-32); CREATININE 0.7 mg/dL (0.55-1.02); GLUCOSE,RANDOM 89 mg/dL (74-106); SGPT/ALT 16 U/L (12-78); TOT PROT 7.8 g/dl (6.4-8.2); TROPONIN I < 0.02 ng/ml (0.00-0.05)
[2016-10-29 12:28] LABS: SGOT/AST 16 U/L (15-37)
[2016-10-29 12:34] LABS: URINE MUCUS RARE; URINE RBC 22 /hpf (0-3); URINE WBC <1 /hpf (3-5)
[2016-10-29 12:59] LABS: INR 2.12 (0.82-1.09); PROTHROMBIN TIME (PATIENT) 23.7 SEC (9.98-11.88)
[2016-10-29 14:31] VITALS: BP 138/50; PULSE 60
--- NOTE | 2016-10-29 15:56 | EKG ---
Test Reason : Blood Pressure : / mmHG Vent. Rate : 060 BPM Atrial Rate : 060 BPM P-R Int : 292 ms QRS Dur : 140 ms QT Int : 516 ms P-R-T Axes : 051 -17 140 degrees QTc Int : 516 ms Atrial-paced rhythm LEFT BUNDLE BRANCH BLOCK ABNORMAL ECG WHEN COMPARED WITH ECG OF 27-AUG-2016 09:23, ELECTRONIC ATRIAL PACEMAKER HAS REPLACED SINUS RHYTHM Confirmed by ELLI JAIN, ANTONELLA ([id number]) on 10/29/2016 3:55:37 PM Referred By: Confirmed By:ANTONELLA CALLOWAY MD
== END 2016-10-29 14:32 | disposition home or self-care (01) ==
LOC: JER 09:16
PROC: 3E033GC Introduction of Other Therapeutic Substance into Peripheral Vein, Percutaneous Approach (ICD-10-PCS; principal; 2016-10-29)
DX: K21.9 Gastro-esophageal reflux disease without esophagitis (principal); K86.1 Other chronic pancreatitis; I25.10 Atherosclerotic heart disease of native coronary artery without angina pectoris; I10 Essential (primary) hypertension; I48.0 Paroxysmal atrial fibrillation; Z79.01 Long term (current) use of anticoagulants; Z95.0 Presence of cardiac pacemaker
CPT/HCPCS: 36415; 71010-TC; 80053; 81003; 81015; 82550; 83690; 84484; 85025; 85610; 93005; 93010; 99282-25

== ENCOUNTER 2016-12-30 08:53 | Emergency (ER) | payer OTHER ==
[2016-12-30 08:58] VITALS: TEMP 97.8; BMI 26.6
--- NOTE | 2016-12-30 09:21 | PDOC ---
History of Present Illness - General History Source: Patient Exam Limitations: No Limitations - History of Present Illness Initial Comments: 12/30/16 11:34 The patient is a 76 year old female, with a significant past medical history of Skin CA (earlobe), CAD, diverticulitis, HTN, hypercholesterolemia, afib (on coumadin), who presents to the emergency department with Left arm/shoulder pain for about 2 weeks. The patient describes the pain as a dull constant pain, that is often made worse with weight bearing activities or overhead motions. She reports taking tylenol on Wednesday with good alleviation of her pain. She reports previously having right shoulder pain, that was resolved with pain. She denies any UE numbness and tingling. 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 She denies any recent trauma or injury to her left arm/shoulder area. She denies recent fevers, chills, headache or dizziness. She denies recent chest pain or shortness of breath. Allergies: Penicillins Past surgical history: Pacemaker (2010) Social history: Nonsmoker. Denies EtOH use and recreational drug use. Primary Care Physician: <Pal Zapata - Last Filed: 12/30/16 12:19> - General History Source: Patient <Kayce Hansen - Last Filed: 12/30/16 12:47> - General Chief Complaint: Pain Stated Complaint: LT ARM PAIN Time Seen by Provider: 12/30/16 09:10 Past History <Pal Zapata - Last Filed: 12/30/16 12:19> - Past Medical History Anemia: No Asthma: No Cancer: Yes (SKIN CA- EARLOBE) Cardiac Disorders: Yes (CORONARY ARTERY DISEASE) CVA: No COPD: No CHF: No Dementia: No Diabetes: No GI Disorders: Yes (GASTRITIS, diverticlitis) Disorders: No HTN: Yes Hypercholesterolemia: Yes Liver Disease: (FATTY LIVER) Suicide Attempt (Hx): No Seizures: No Thyroid Disease: No - Surgical History Abdominal Surgery: No Appendectomy: No Cardiac Surgery: Yes (PACEMAKER IMPLANT-[facility]-02/2011) Cholecystectomy: No Lung Surgery: No Neurologic Surgery: No Orthopedic Surgery: No - Family Disease History Family Disease History: Heart Disease: Father - Immunization History Immunization Up to Date: Yes - Psycho/Social/Smoking Cessation Hx Anxiety: No Suicidal Ideation: No Smoking Status: Yes Smoking History: Never smoked Have you smoked in the past 12 months: No Number of Cigarettes Smoked Daily: 0 If you are a former smoker, when did you quit?: 25 yrs Hx Alcohol Use: No Drug/Substance Use Hx: No Substance Use Type: None Hx Substance Use Treatment: No <Kayce Hansen - Last Filed: 12/30/16 12:47> - Past Medical History Allergies/Adverse Reactions: Allergies Allergy/AdvReac Type Severity Reaction Status Date / Time Penicillins AdvReac Itching Verified 12/30/16 08:58 Home Medications: Ambulatory Orders Warfarin Sodium [Coumadin] 5 mg PO ASDIR 06/07/14 Sotalol HCl [Betapace -] 80 mg PO BID #28 tablet 06/10/14 Valsartan [Diovan] 160 mg PO DAILY #14 tablet 03/15/15 Warfarin Na [Coumadin -] 2.5 mg PO ASDIR 09/24/15 Diltiazem Cd [Cardizem Cd -] 360 mg PO DAILY #30 cap.cd.24h 08/27/16 Pravastatin Sodium [Pravachol (Nf)] 40 mg PO HS 12/30/16 Review of Systems - Review of Systems Able to Perform ROS?: Yes Comments:: 12/30/16 11:35 GENERAL/CONSTITUTIONAL: No fever or chills. No weakness. HEAD, EYES, EARS, NOSE AND THROAT: No change in vision. No ear pain or discharge. No sore throat. CARDIOVASCULAR: No chest pain or shortness of breath. RESPIRATORY: No cough, wheezing, or hemoptysis. GASTROINTESTINAL: No nausea, vomiting, diarrhea or constipation. GENITOURINARY: No dysuria, frequency, or change in urination. MUSCULOSKELETAL: +LEFT arm pain. No joint or muscle swelling or pain. No neck or back pain. SKIN: No rash NEUROLOGIC: No headache, vertigo, loss of consciousness, or change in strength/ sensation. ENDOCRINE: No increased thirst. No abnormal weight change. HEMATOLOGIC/LYMPHATIC: No anemia, easy bleeding, or history of blood clots. ALLERGIC/IMMUNOLOGIC: No hives or skin allergy. <Pal Zapata - Last Filed: 12/30/16 12:19> *Physical Exam - Vital Signs Last Vital Signs Temp Pulse Resp BP Pulse Ox 97.8 F 67 20 123/77 99 12/30/16 08:54 12/30/16 08:54 12/30/16 08:54 12/30/16 08:54 12/30/16 08:54 - Physical Exam Comments: 12/30/16 12:21 GENERAL: Awake, alert, and fully oriented, in no acute distress HEAD: No signs of trauma EYES: PERRLA, EOMI, sclera anicteric, conjunctiva clear ENT: Auricles normal inspection, hearing grossly normal, nares patent, Moist mucosa NECK: Normal ROM, supple, JVD, or masses LUNGS: Breath sounds equal, clear to auscultation bilaterally. No wheezes, and no crackles HEART: Regular rate and rhythm, normal S1 and S2, no murmurs, rubs or gallops ABDOMEN: Soft, nontender, normoactive bowel sounds. No guarding, no rebound. No masses EXTREMITIES: LEFT Shoulder:Tenderness on the anterior shoulder. FROM of the shoulder, elbow, and wrist. Elbow and wrist are non tender. NEUROLOGICAL: Normal speech, normal gait, moves all extremities equally. Speech clear. SKIN: Warm, Dry, normal turgor, no rashes or lesions noted. <Pal Zapata - Last Filed: 12/30/16 12:19> - Vital Signs Last Vital Signs Temp Pulse Resp BP Pulse Ox 97.8 F 67 20 123/77 99 12/30/16 08:54 12/30/16 08:54 12/30/16 08:54 12/30/16 08:54 12/30/16 08:54 <Kayce Hansen - Last Filed: 12/30/16 12:47> Heart Score/ECG Review - ECG Intrepretation Comment:: 12/30/16 09:19 60 bpm, paced, TWI I, AVL V5 - V6 LBB old, no acute changes comparison 10/29/16 <Kayce Hansen - Last Filed: 12/30/16 12:47> ED Treatment Course - LABORATORY CBC & Chemistry Diagram: 12/30/16 10:15 12/30/16 10:15 - ADDITIONAL ORDERS Additional order review: 12/30/16 10:15 RBC 4.22 MCV 88.6 MCHC 32.4 RDW 14.9 MPV 8.3 Neutrophils % 63.9 Lymphocytes % 20.7 Monocytes % 11.4 H Eosinophils % 3.0 Basophils % 1.0 - RADIOLOGY Radiograph Interpretation: 12/30/16 10:43 CHEST X-RAY impressions reported by : No acute disease in the chest. 12/30/16 10:45 LEFT SHOULDER X-RAY impressions reported by : No acute findings. - Medications Given in the ED: ED Medications Discontinued Medications Generic Name Dose Route Start Last Admin Trade Name Abdiel PRN Reason Stop Dose Admin Acetaminophen 650 mg 12/30/16 10:10 12/30/16 10:25 Tylenol - PO 12/30/16 10:11 650 mg ONCE ONE Administration <Pal Zapata - Last Filed: 12/30/16 12:19> - LABORATORY CBC & Chemistry Diagram: 12/30/16 10:15 12/30/16 10:15 <Kayce Hansen - Last Filed: 12/30/16 12:47> Medical Decision Making - Medical Decision Making 12/30/16 12:33 76 yo F with h/o HTN CAD pacemaker here wtih c/o left shoulder pain, has had for 2 weeks. worse wtih certain movements. improved with tylenol. last took yesterday. no f/c no cp no sob. no pal;itations. no weakness or numbness. has not seen an orthopedist. was given cream which she placedon right shoulder which helped. on exam left shoulder with anterior ttp,,from. elbow and wrist FROM, NT. n/v intact distally 5/5 bilat upper ext. no mildline spinal tendneress ( see above rest exam) differential atypical cardiac unlikley ( will check trop cxr ekg) xray shoulder r/o occult fx, arthritis. wilber dc with ortho fu. d/w dr. gonzalez, will see pt oupt for fu and ortho referral. xrays unremakrable. pain improved with tylenol only. ekg unchanged. labs unremarkable. <Kayce Hansen - Last Filed: 12/30/16 12:47> *DC/Admit/Observation/Transfer - Attestations Scribe Attestion: 12/30/16 10:45 Documentation prepared by Pal Zapata, acting as bilingual medical receptionist for Kayce Hansen MD. <Pal Zapata - Last Filed: 12/30/16 12:19> - Discharge Dispostion Admit: No <JadeKayce - Last Filed: 12/30/16 12:47> Diagnosis at time of Disposition: Shoulder pain, left - Discharge Dispostion Disposition: HOME - Referrals Referrals: Gabe Gonzalez MD [Primary Care Provider] - - Patient Instructions Printed Discharge Instructions: DI for Shoulder Pain Additional Instructions: take tylenol 500 mg every 6 hr as needed for pain. follow up with dr. chu to discuss orthopedic referral for persistant pain left shoulder. you can also continue using the cream previously prescribed by your doctor. return for any problems or concerns. - Post Discharge Activity Work/School Note: Back to Work
[2016-12-30] MEDS ORDERED: ACETAMINOPHEN 325 MG TABLET (FP) PO ONE (10:10)
[2016-12-30] MEDS ORDERED: ACETAMINOPHEN 325 MG TABLET (FP) ONE (10:20)
[2016-12-30 10:30] LABS: MCH 28.7 pg (25.7-33.7); MCHC 32.4 g/dl (32.0-36.0); MEAN CELL VOLUME 88.6 fl (80-96); MEAN PLT VOLUME 8.3 fl (7.5-11.1); NEUTROPHILS 63.9 % (42.8-82.8); PLATELET COUNT 219 K/MM3 (134-434); RDW 14.9 % (11.6-15.6); WHITE BLOOD COUNT 7.6 K/mm3 (4.0-10.0)
[2016-12-30 11:06] LABS: INR 2.72 (0.82-1.09); PROTHROMBIN TIME (PATIENT) 30.5 SEC (9.98-11.88)
[2016-12-30 11:41] LABS: ALBUMIN 3.4 g/dl (3.4-5.0); ALK PHOS 77 U/L (45-117); ANION GAP 12 (8-16); BILIRUBIN,TOTAL 0.4 mg/dL (0.2-1.0); CALCIUM 9.2 mg/dL (8.5-10.1); CO2 29 mmol/L (21-32); COCKROFT - GAULT 77.1035; CREATININE 0.7 mg/dL (0.55-1.02); GLUCOSE,RANDOM 87 mg/dL (74-106); SGOT/AST 19 U/L (15-37); SGPT/ALT 16 U/L (12-78); TOT PROT 6.9 g/dl (6.4-8.2); TROPONIN I < 0.02 ng/ml (0.00-0.05)
[2016-12-30 12:27] VITALS: BP 125/66; PULSE 60
--- NOTE | 2016-12-30 13:44 | EKG ---
Test Reason : Blood Pressure : / mmHG Vent. Rate : 060 BPM Atrial Rate : 060 BPM P-R Int : 278 ms QRS Dur : 140 ms QT Int : 506 ms P-R-T Axes : 075 -15 133 degrees QTc Int : 506 ms Atrial-paced rhythm with prolonged AV conduction LEFT BUNDLE BRANCH BLOCK ABNORMAL ECG WHEN COMPARED WITH ECG OF 29-OCT-2016 13:30, NO SIGNIFICANT CHANGE WAS FOUND Confirmed by WANDA JAIN, JESSE ([id number]) on 12/30/2016 1:43:33 PM Referred By: Confirmed By:JESSE MUÑOZ MD
== END 2016-12-30 13:04 | disposition home or self-care (01) ==
LOC: JERFT 08:53
DX: M25.512 Pain in left shoulder (principal); I10 Essential (primary) hypertension; I25.10 Atherosclerotic heart disease of native coronary artery without angina pectoris; I48.91 Unspecified atrial fibrillation; Z79.01 Long term (current) use of anticoagulants; Z85.828 Personal history of other malignant neoplasm of skin; E78.00 Pure hypercholesterolemia, unspecified; Z88.0 Allergy status to penicillin; K76.0 Fatty (change of) liver, not elsewhere classified; Z95.0 Presence of cardiac pacemaker
CPT/HCPCS: 36415; 71020-TC; 73030-TC-LT; 80053; 82550; 84484; 85025; 85610; 93005; 93010; 99282-25

== ENCOUNTER 2017-07-06 12:07 | Emergency (ER) | payer OTHER ==
[2017-07-06 12:13] VITALS: BP 120/46; PULSE 60; TEMP 97.9; BMI 27.1
[2017-07-06] MEDS ORDERED: ACETAMINOPHEN WITH CODEINE 300MG/30MG TABLET PO ONE (13:17)
[2017-07-06] MEDS ORDERED: ACETAMINOPHEN WITH CODEINE 300MG/30MG TABLET ONE (13:21)
--- NOTE | 2017-07-06 13:29 | PDOC ---
History of Present Illness - General Chief Complaint: Back Pain Stated Complaint: PAIN/ BACK, BOTH ARMS Time Seen by Provider: 07/06/17 12:47 History Source: Patient Exam Limitations: No Limitations - History of Present Illness Initial Comments: 07/06/17 13:20 76 yr female with c/o chronic back pain and neck pain has history of arthritis, taking tylenol with no relief. PT denies injury also suffering from nasal congestion. Pt denies chest pain no abd pain no SOB. 07/06/17 13:33 Occurred: reports: other (3 weeks ) Severity: reports: mild Pain Location: reports: back, neck Method of Injury: No: unknown, assault, direct blow, fall, motor vehicle crash, other Past History - Past Medical History Allergies/Adverse Reactions: Allergies Allergy/AdvReac Type Severity Reaction Status Date / Time Penicillins AdvReac Itching Verified 07/06/17 12:08 Home Medications: Ambulatory Orders Warfarin Sodium [Coumadin] 5 mg PO ASDIR 06/07/14 Sotalol HCl [Betapace -] 80 mg PO BID #28 tablet 06/10/14 Valsartan [Diovan] 160 mg PO DAILY #14 tablet 03/15/15 Warfarin Na [Coumadin -] 2.5 mg PO ASDIR 09/24/15 Diltiazem Cd [Cardizem Cd -] 360 mg PO DAILY #30 cap.cd.24h 08/27/16 Pravastatin Sodium [Pravachol (Nf)] 40 mg PO HS 12/30/16 Acetaminophen W/ Codeine #3 [Tylenol # 3 -] 1 tab PO Q6H PRN #12 tablet MDD 4 tabs 07/06/17 Fluticasone Prop 0.05% Nasal [Flonase -] 1 - 2 spray NS DAILY #1 spray.pump Lidocaine 5% Patch [Lidoderm -] 1 patch TP DAILY #3 patch 07/06/17 Anemia: No Asthma: No Cancer: Yes (SKIN CA- EARLOBE) Cardiac Disorders: Yes (CORONARY ARTERY DISEASE) CVA: No COPD: No CHF: No Dementia: No Diabetes: No GI Disorders: Yes (GASTRITIS, diverticlitis) Disorders: No HTN: Yes Hypercholesterolemia: Yes Liver Disease: (FATTY LIVER) Seizures: No Thyroid Disease: No - Surgical History Abdominal Surgery: No Appendectomy: No Cardiac Surgery: Yes (PACEMAKER IMPLANT-[employer]-02/2011) Cholecystectomy: No Lung Surgery: No Neurologic Surgery: No Orthopedic Surgery: No - Family Disease History Family Disease History: Heart Disease: Father - Immunization History Immunization Up to Date: Yes - Suicide/Smoking/Psychosocial Hx Smoking Status: Yes Smoking History: Never smoked Have you smoked in the past 12 months: No Number of Cigarettes Smoked Daily: 0 If you are a former smoker, when did you quit?: 25 yrs Information on smoking cessation initiated: No Hx Alcohol Use: No Drug/Substance Use Hx: No Substance Use Type: None Hx Substance Use Treatment: No Trauma Specific PMHX - Complaint Specific PMHX Arthritis: Yes Back Injury: No Neck Injury: No Hx Sacro Iliac Joint Dysfunction: No Review of Systems - Review of Systems Able to Perform ROS?: Yes Is the patient limited Bulgarian proficient: No Constitutional: No: Symptoms Reported HEENTM: No: Symptoms Reported Respiratory: No: Symptoms reported Cardiac (ROS): No: Symptoms Reported ABD/GI: No: Symptoms Reported : No: Symptoms Reported Musculoskeletal: Yes: Symptoms Reported Integumentary: Yes: Symptoms Reported *Physical Exam - Vital Signs Last Vital Signs Temp Pulse Resp BP Pulse Ox 97.9 F 60 16 120/46 96 07/06/17 12:09 07/06/17 12:09 07/06/17 12:09 07/06/17 12:09 07/06/17 12:09 - Physical Exam General Appearance: Yes: Nourished, Appropriately Dressed HEENT: positive: EOMI, OTTO, Normal ENT Inspection, TMs Normal, Pharynx Normal Neck: positive: Trachea midline, Normal Thyroid, Supple. negative: Tender, Rigidity, Tender lateral, Tender midline Respiratory/Chest: positive: Lungs Clear, Normal Breath Sounds, Other (cough ). negative: Chest Tender, Crackles, Rales, Rhonchi, Stridor, Wheezing Cardiovascular: positive: Regular Rhythm, Regular Rate Gastrointestinal/Abdominal: positive: Normal Bowel Sounds, Flat, Soft. negative : Tender Lymphatic: negative: Adenopathy Musculoskeletal: positive: Normal Inspection, Other (lumbar paraspinal soft tissue ttp neg vetebral tenderness ). negative: CVA Tenderness, CVA Tenderness (R), CVA Tenderness (L), Decreased Range of Motion, Muscle Spasm, Vertebral Tenderness Extremity: positive: Normal Capillary Refill, Normal Inspection, Normal Range of Motion Integumentary: positive: Normal Color, Dry, Warm Neurologic: positive: Fully Oriented, Alert, Normal Mood/Affect, Normal Response , Motor Strength 12/25 ED Treatment Course - RADIOLOGY Radiology Studies Ordered: Category Date Time Status CHEST PA & LAT [RAD] Stat Radiology 07/06/17 13:16 Ordered SPINE-CERVICAL [RAD] Stat Radiology 07/06/17 13:15 Ordered - Medications Given in the ED: ED Medications Discontinued Medications Generic Name Dose Route Start Last Admin Trade Name Freq PRN Reason Stop Dose Admin Acetaminophen/Codeine Phosphate 1 tab 07/06/17 13:17 07/06/17 13:20 Tylenol # 3 - PO 07/06/17 13:18 1 tab ONCE ONE Administration Medical Decision Making - Medical Decision Making 07/06/17 13:35 cc: chronic pain neck and back history of arthritis neg sob has dry cough and nasal congestion for days no fever no chills, 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 pt asking for pain meds will get cervical spine xray and chest xray will give tylenol #3 for pain will refer to rheumotology pt and her son agree with plan of care *DC/Admit/Observation/Transfer Diagnosis at time of Disposition: Chronic neck pain Chronic low back pain Qualifiers: Back pain laterality: bilateral Sciatica presence: without sciatica Qualified Code(s): M54.5 - Low back pain - Discharge Dispostion Disposition: HOME Condition at time of disposition: Good - Prescriptions Prescriptions: Acetaminophen W/ Codeine #3 [Tylenol # 3 -] 1 tab PO Q6H PRN #12 tablet MDD 4 tabs PRN Reason: Severe Pain Fluticasone Prop 0.05% Nasal [Flonase -] 1 - 2 spray NS DAILY #1 spray.pump Lidocaine 5% Patch [Lidoderm -] 1 patch TP DAILY #3 patch - Referrals Referrals: Ellen Carbone MD [Primary Care Provider] - - Patient Instructions Additional Instructions: follow with the orthopedist for follow up next week apply lidocaine patches to area of pain as directed take tylenol #3 for severe pain take tylenol regular strength for mild to moderate pain return to ER for any worsening symptoms - Post Discharge Activity Forms/Work/School Notes: Back to Work
== END 2017-07-06 14:00 | disposition home or self-care (01) ==
LOC: JERFT 12:07
DX: M47.892 Other spondylosis, cervical region (principal); M54.2 Cervicalgia; M54.5 Low back pain; G89.29 Other chronic pain; M12.9 Arthropathy, unspecified
CPT/HCPCS: 71020-TC; 72050-TC; 99281-25

== ENCOUNTER 2017-08-14 10:52 | Inpatient (IN) | payer OTHER ==
[2017-08-14 11:04] VITALS: BMI 26.6
--- NOTE | 2017-08-14 11:16 | PDOC ---
Attending Attestation - Resident Resident Name: Vannessa Hyatt - ED Attending Attestation I have performed the following: I have examined & evaluated the patient, The case was reviewed & discussed with the resident, I agree w/resident's findings & plan, Exceptions are as noted - HPI HPI: 08/14/17 11:53 76yo F hx gastritis, CAD s/p bypass, AF on coumadin, diverticulitis, HL p/w 4 days of epigastric abd pain radiating to LUQ and LLQ. Reports it feels like gastritis but reports multiple episodes of brb on toilet paper after she has BM for the last 4 days. Denies dark or tarry stools. Denies constipation or diarrhea. Denies pain when defecating. Denies f/c, N/V, CP, SOB, headache, focal weakness or numbness. - Physicial Exam PE: 08/14/17 12:02 agree with resident exam - Medical Decision Making 08/14/17 12:03 76-year-old female with multiple medical problems including A. fib on Coumadin, CAD, diverticulitis presents with epigastric abdominal pain radiating to the left upper quadrant and left lower quadrant associated with multiple episodes of painless bright red blood on toilet paper. Rectal exam with blood in rectal vault. Vitals are unremarkable. Differential is wide and includes but not limited to supratherapeutic INR, diverticulosis, diverticulitis, peptic ulcer disease (possibly due to NSAIDS, but unlikely with BRBPR). Will send a troponin as well given cardiac risk factors and epigastric abd pain. 08/14/17 18:00 CTAP with recurrent diverticulosis and diverticulitis. Pt dosed cipro/flagyl, admitted for further management. Case discussed in detail with admitting physician including history, physical exam and ancillary studies. Admitting physician has assumed care for the patient, will follow all pending diagnostics and will complete the evaluation and treatment.
--- NOTE | 2017-08-14 11:49 | PDOC ---
History of Present Illness - General Chief Complaint: Rectal Bleed Stated Complaint: RECTAL BLEED Time Seen by Provider: 08/14/17 11:15 History Source: Patient, Family Exam Limitations: No Limitations - History of Present Illness Initial Comments: This is a 76 YOF with h/o CAD (s/p CABG), A-fib (on warfarin with last INR 2.4 last month), and gastritis who presents with 3-4 days of burning diffuse abdominal pain worse in the epigastrium, nausea after she eats, and BRBPR on toilet paper when she wipes. She does not have any noticeable blood within the stool, and her stool is otherwise normal brown color (not black). She recently started diclofenac for chronic shoulder pain related to arthritis. She otherwise has not had any recent symptoms (no fever, chills, vomiting, diarrhea , constipation, cough, SOB, chest pain, dizziness, headache, LOC, etc). She last had a colonoscopy about 3 years ago which was normal. Past History - Past Medical History Allergies/Adverse Reactions: Allergies Allergy/AdvReac Type Severity Reaction Status Date / Time Penicillins AdvReac Itching Verified 08/14/17 11:06 Home Medications: Ambulatory Orders Warfarin Sodium [Coumadin] 5 mg PO ASDIR 06/07/14 Sotalol HCl [Betapace -] 80 mg PO BID #28 tablet 06/10/14 Valsartan [Diovan] 160 mg PO DAILY #14 tablet 03/15/15 Warfarin Na [Coumadin -] 2.5 mg PO ASDIR 09/24/15 Diltiazem Cd [Cardizem Cd -] 360 mg PO DAILY #30 cap.cd.24h 08/27/16 Pravastatin Sodium [Pravachol (Nf)] 40 mg PO HS 12/30/16 Acetaminophen W/ Codeine #3 [Tylenol # 3 -] 1 tab PO Q6H PRN #12 tablet MDD 4 tabs 07/06/17 Fluticasone Prop 0.05% Nasal [Flonase -] 1 - 2 spray NS DAILY #1 spray.pump Lidocaine 5% Patch [Lidoderm -] 1 patch TP DAILY #3 patch 07/06/17 Anemia: No Asthma: No Cancer: Yes (SKIN CA- EARLOBE) Cardiac Disorders: Yes (CORONARY ARTERY DISEASE,Pacemaker) CVA: No COPD: No CHF: No Dementia: No Diabetes: No GI Disorders: Yes (GASTRITIS, diverticlitis) Disorders: No HTN: Yes Hypercholesterolemia: Yes Liver Disease: (FATTY LIVER) Seizures: No Thyroid Disease: No - Surgical History Abdominal Surgery: No Appendectomy: No Cardiac Surgery: Yes (PACEMAKER IMPLANT-[facility] [place]-02/2011) Cholecystectomy: No Lung Surgery: No Neurologic Surgery: No Orthopedic Surgery: No - Family Disease History Family Disease History: Heart Disease: Father - Immunization History Immunization Up to Date: Yes - Suicide/Smoking/Psychosocial Hx Smoking Status: Yes Smoking History: Never smoked Have you smoked in the past 12 months: No Number of Cigarettes Smoked Daily: 0 If you are a former smoker, when did you quit?: 25 yrs Information on smoking cessation initiated: No Hx Alcohol Use: No Drug/Substance Use Hx: No Substance Use Type: None Hx Substance Use Treatment: No Review of Systems - Review of Systems Able to Perform ROS?: Yes Constitutional: No: Chills, Fever, Unexplained wgt Loss HEENTM: No: Nose Congestion, Throat Pain Respiratory: No: Cough, Shortness of Breath Cardiac (ROS): No: Chest Pain, Palpitations ABD/GI: Yes: Nausea, Rectal Bleeding, Other (abdominal pain). No: Abd. Pain w/ defecation, Constipated, Diarrhea, Vomiting : No: Burning, Dysuria Musculoskeletal: No: Back Pain, Neck Pain Integumentary: No: Bruising, Rash Neurological: No: Headache, Numbness, Tingling, Weakness, Dizziness Endocrine: No: Unexplained Weight Gain, Unexplained Weight Loss *Physical Exam - Vital Signs Last Vital Signs Temp Pulse Resp BP Pulse Ox 97.9 F 63 18 131/69 98 08/14/17 10:59 08/14/17 10:59 08/14/17 10:59 08/14/17 10:59 08/14/17 10:59 - Physical Exam General Appearance: Yes: Nourished, Appropriately Dressed, Other (very pleasant and appropriately answering older adult female with son at bedside, no distress , appears comfortable). No: Apparent Distress HEENT: positive: EOMI, Normal Voice, Hearing Grossly Normal. negative: Scleral Icterus (R), Scleral Icterus (L), Nasal Congestion Neck: positive: Trachea midline, Supple. negative: Tender, Rigid Respiratory/Chest: positive: Lungs Clear, Normal Breath Sounds. negative: Respiratory Distress, Crackles, Rhonchi, Stridor, Wheezing Cardiovascular: positive: Regular Rhythm, Regular Rate. negative: Murmur Gastrointestinal/Abdominal: positive: Normal Bowel Sounds, Soft. negative: Tender, Organomegaly, Pulsatile Mass, Guarding Musculoskeletal: positive: Normal Inspection. negative: Decreased Range of Motion, Vertebral Tenderness Extremity: positive: Normal Capillary Refill, Normal Inspection, Normal Range of Motion. negative: Tender, Cyanosis Integumentary: positive: Normal Color, Dry, Warm. negative: Erythema, Rash, Bruising Neurologic: positive: chest painting leader II-XII NML intact, Fully Oriented, Alert, Normal Mood/ Affect, Normal Response, Motor Strength 12/25 ED Treatment Course - LABORATORY CBC & Chemistry Diagram: 08/14/17 12:21 08/14/17 12:21 Medical Decision Making - Medical Decision Making 76F with h/o A-fib on warfarin, CAD s/p CABG, and gastritis who p/w burning epigastric/LUQ pain and PRBPR. On exam VS wnl and the patient is very pleasant, no distress, epigastric and LUQ ttp, rectal with small BRBPR. DDX IBNLT gastritis, PUD, cholecystitis, gallstone pancreatitis, AAA, diverticulitis, hemorrhoid bleeding, etc. Ordered is CBCD, CMP, coags, T&S, cardiac panel, EKG, FOBT, CT abdomen/pelvis with IV contrast. 08/14/17 15:[address] abdomen pelvis results with diverticulosis and mild diverticulitis. Cipro Flagyl PO are ordered and patient is told she can take sips of soup. 08/14/17 15:45 [facility] microblogged for admission to obs med/surg for recurrent diverticulitis w/ diverticulosis. 08/14/17 17:20 Spoke with [facility] regarding admission; they recommend dosing with ceftriaxone. Patient states that she has had these symptoms twice before. She saw Dr. Gamboa as an outpatient for endoscopy but has not seen him for 3-4 years. *DC/Admit/Observation/Transfer Diagnosis at time of Disposition: Diverticulitis Diverticulosis Qualifiers: Diverticulosis site: diverticulosis of large intestine Diverticulosis bleeding : diverticulosis with bleeding Qualified Code(s): K57.31 - Diverticulosis of large intestine without perforation or abscess with bleeding - Discharge Dispostion Condition at time of disposition: Guarded Admit: Yes - Referrals - Patient Instructions - Post Discharge Activity
[2017-08-14] MEDS ORDERED: MAG HYDROX/AL HYDROX/SIMETH 30 ML UNIT-DOSE CUP PO ONE (12:02)
[2017-08-14] MEDS ORDERED: MAG HYDROX/AL HYDROX/SIMETH 30 ML UNIT-DOSE CUP ONE (12:11)
[2017-08-14] MEDS ORDERED: FAMOTIDINE 20 MG/50 ML IVPB 20 MG/50 ML MG IVPB ONE ×2 (12:28→12:30)
[2017-08-14 12:33] LABS: BASO % 1.4 % (0-2.0); EOS % 3.6 % (0-4.5); HEMATOCRIT 37.3 % (32.4-45.2); HEMOGLOBIN 11.9 GM/dL (10.7-15.3); LYMPH % 18.9 % (8-40); MCH 28.3 pg (25.7-33.7); MCHC 31.8 g/dl (32.0-36.0); MEAN PLT VOLUME 9.7 fl (7.5-11.1); MONO % 10.1 % (3.8-10.2); PLATELET COUNT 242 K/MM3 (134-434); RBC 4.19 M/mm3 (3.60-5.2); RDW 15.9 % (11.6-15.6); WHITE BLOOD COUNT 9.5 K/mm3 (4.0-10.0)
[2017-08-14 13:01] LABS: ALBUMIN 3.4 g/dl (3.4-5.0); ANION GAP 9 (8-16); BLOOD UREA NITROGEN 14 mg/dL (7-18); CALCIUM 9.2 mg/dL (8.5-10.1); CHLORIDE 106 mmol/L (98-107); CO2 26 mmol/L (21-32); CREATININE 0.8 mg/dL (0.55-1.02); GLUCOSE,RANDOM 115 mg/dL (74-106); POTASSIUM 4.5 mmol/L (3.5-5.1); SODIUM 141 mmol/L (136-145)
[2017-08-14 13:14] LABS: ALK PHOS 91 U/L (45-117); BILIRUBIN,TOTAL 0.3 mg/dL (0.2-1.0); SGOT/AST 26 U/L (15-37); SGPT/ALT 23 U/L (12-78); TOT PROT 7.1 g/dl (6.4-8.2)
[2017-08-14 13:22] LABS: URINE APPEARANCE CLEAR; URINE BILIRUBIN NEGATIVE (NEGATIVE); URINE BLOOD 2+ (NEGATIVE); URINE COLOR LTYELLOW; URINE GLUCOSE (UA) NEGATIVE (NEGATIVE); URINE KETONE NEGATIVE (NEGATIVE); URINE LEUK ESTERASE NEGATIVE (NEGATIVE); URINE NITRITE NEGATIVE (NEGATIVE); URINE PROTEIN NEGATIVE (NEGATIVE); URINE UROBILINOGEN NEGATIVE mg/dL (0.2-1.0)
[2017-08-14 13:30] LABS: URINE MUCUS RARE
[2017-08-14 13:45] LABS: LIPASE 132 U/L (73-393)
[2017-08-14 14:27] LABS: INR 2.06 (0.82-1.09); PROTHROMBIN TIME (PATIENT) 23.3 SEC (9.98-11.88)
[2017-08-14] MEDS ORDERED: CIPROFLOXACIN 500 MG TABLET (RESTRICTED TO ID) PO ONE (15:30)
[2017-08-14] MEDS ORDERED: metroNIDAZOLE 250 MG TABLET PO ONE (15:30)
[2017-08-14] MEDS ORDERED: metroNIDAZOLE 250 MG TABLET ONE (15:47)
--- NOTE | 2017-08-14 16:14 | EKG ---
Test Reason : Blood Pressure : / mmHG Vent. Rate : 060 BPM Atrial Rate : 060 BPM P-R Int : 284 ms QRS Dur : 140 ms QT Int : 516 ms P-R-T Axes : 072 -21 100 degrees QTc Int : 516 ms Atrial-paced rhythm with prolonged AV conduction LEFT BUNDLE BRANCH BLOCK ABNORMAL ECG WHEN COMPARED WITH ECG OF 30-DEC-2016 09:02, NO SIGNIFICANT CHANGE WAS FOUND Confirmed by ANJU CHERRY MD ([id number]) on 08/14/2017 4:13:38 PM Referred By: Confirmed By:ANJU CHERRY MD
--- NOTE | 2017-08-14 18:29 | HP ---
Admitting History and Physical - Primary Care Physician PCP: Ellen Carbone I - Admission Chief Complaint: abdominal pain, hematochezia History of Present Illness: This is a 76 year old female with pmhx HTN, CAD, sick sinus syndrome s/p ppm, A fib (on coumadin) presented to the ED with x2 days of abdominal pain and bright red blood per rectum. Pt denies hemaemesis, but reports nausea. Currently, she does not have any abdominal pain, stool guiac is negative, hgb stable. In the past she was seen by Dr. Zavala had an EGD with polys removed and diverticulosis, d/w Dr. Gamboa, one polyp was seen as high grade and patient will need repeat EGD. History Source: Patient, Medical Record Limitations to Obtaining History: Language Barrier - Past Medical History Cardiovascular: Yes: AFIB, CAD, HTN, Hyperlipdemia - Past Surgical History Past Surgical History: Yes: Permanent Pacemaker - Smoking History Smoking history: Never smoked Have you smoked in the past 12 months: No Aproximately how many cigarettes per day: 0 If you are a former smoker, when did you quit?: 25 yrs - Alcohol/Substance Use Hx Alcohol Use: No History of Substance Use: reports: None - Social History ADL: Independent Home Medications - Allergies Allergies/Adverse Reactions: Allergies Allergy/AdvReac Type Severity Reaction Status Date / Time Penicillins AdvReac Mild Itching Verified 08/14/17 19:10 - Home Medications Home Medications: Ambulatory Orders Warfarin Sodium [Coumadin] 5 mg PO ASDIR 06/07/14 Sotalol HCl [Betapace -] 80 mg PO BID #28 tablet 06/10/14 Valsartan [Diovan] 160 mg PO DAILY #14 tablet 03/15/15 Warfarin Na [Coumadin -] 2.5 mg PO ASDIR 09/24/15 Diltiazem Cd [Cardizem Cd -] 360 mg PO DAILY #30 cap.cd.24h 08/27/16 Pravastatin Sodium [Pravachol (Nf)] 40 mg PO HS 12/30/16 Acetaminophen W/ Codeine #3 [Tylenol # 3 -] 1 tab PO Q6H PRN #12 tablet MDD 4 tabs 07/06/17 Fluticasone Prop 0.05% Nasal [Flonase -] 1 - 2 spray NS DAILY #1 spray.pump Lidocaine 5% Patch [Lidoderm -] 1 patch TP DAILY #3 patch 07/06/17 Review of Systems - Review of Systems Constitutional: reports: No Symptoms Eyes: reports: No Symptoms HENT: reports: No Symptoms Neck: reports: No Symptoms Cardiovascular: reports: No Symptoms Respiratory: reports: No Symptoms Gastrointestinal: reports: Abdominal Pain, Other (BRBPR) Genitourinary: reports: No Symptoms Musculoskeletal: reports: No Symptoms Integumentary: reports: No Symptoms Neurological: reports: No Symptoms Endocrine: reports: No Symptoms Hematology/Lymphatic: reports: No Symptoms Psychiatric: reports: No Symptoms Physical Examination Vital Signs: Vital Signs Temperature 98.3 F 08/14/17 14:18 Pulse Rate 72 08/14/17 14:18 Respiratory Rate 20 08/14/17 14:18 Blood Pressure 133/75 08/14/17 14:18 O2 Sat by Pulse Oximetry (%) 98 08/14/17 14:18 Constitutional: Yes: No Distress Eyes: Yes: Conjunctiva Clear HENT: Yes: Atraumatic Neck: Yes: Supple Cardiovascular: Yes: Regular Rate and Rhythm, S1, S2 Respiratory: Yes: Regular, Other (scatterd crackles) Gastrointestinal: Yes: Normal Bowel Sounds, Soft Musculoskeletal: Yes: Other (R shoulder tenderness) Extremities: Yes: WNL Edema: No Neurological: Yes: Alert, Oriented, Cran Nerves II-XII Intact Labs: CBC, BMP 08/14/17 12:21 08/14/17 12:21 Imaging - Results Cat Scan: Report Reviewed (diverticulosis, with mild acute diverticulitis of sigmoid colon) Problem List - Problems (1) Diverticulitis Code(s): K57.92 - DVTRCLI OF INTEST, PART UNSP, W/O PERF OR ABSCESS W/O BLEED (2) Diverticulosis Code(s): K57.90 - DVRTCLOS OF INTEST, PART UNSP, W/O PERF OR ABSCESS W/O BLEED Qualifiers: Diverticulosis site: diverticulosis of large intestine Diverticulosis bleeding: diverticulosis with bleeding Qualified Code(s): K57.31 - Diverticulosis of large intestine without perforation or abscess with bleeding (3) Afib Code(s): I48.91 - UNSPECIFIED ATRIAL FIBRILLATION Qualifiers: Atrial fibrillation type: paroxysmal Qualified Code(s): I48.0 - Paroxysmal atrial fibrillation (4) Coronary artery disease Code(s): I25.10 - ATHSCL HEART DISEASE OF [place] CORONARY ARTERY W/O ANG PCTRS Qualifiers: Coronary Disease-Associated Artery/Lesion type: [place] artery [place] vs. transplanted heart: [place] heart Associated angina: with stable angina Qualified Code(s): I25.118 - Atherosclerotic heart disease of [place] coronary artery with other forms of angina pectoris (5) Hyperlipidemia Code(s): E78.5 - HYPERLIPIDEMIA, UNSPECIFIED Qualifiers: Hyperlipidemia type: pure hypercholesterolemia Qualified Code(s): E78.00 - Pure hypercholesterolemia, unspecified; E78.0 - Pure hypercholesterolemia (6) Hypertension Code(s): I10 - ESSENTIAL (PRIMARY) HYPERTENSION Qualifiers: Hypertension type: essential hypertension Qualified Code(s): I10 - Essential (primary) hypertension Assessment/Plan Assessment: 76 year old female placed under observation with acute diverticulitis Plan: 1. Acute mild diverticulitis - Start levaquin/ flagyl - Hydrate and perfuse with 1L 1/2 @ 75 cc/hr - If improved in AM, home with cipro/flagyl x7 days - Aug 2 outpt follow up with Dr. Gamboa 2. CAD/ diastolic dysfunciton - Diovan 160mg dialy - Sotolol 80mg BID 3. HTN - Cardizem CD 360mg dialy 4. A fib - Rate controlled - Continue coumadin per INR and as directed - No bleeding currently, dose coumadin 5mg HS - Cont cardizem, sotolol Visit type - Emergency Visit Emergency Visit: Yes ED Registration Date: 08/14/17 Care time: The patient presented to the Emergency Department on the above date and was hospitalized for further evaluation of their emergent condition. - New Patient This patient is new to me today: Yes Date on this admission: 08/14/17 - Critical Care Critical Care patient: No
[2017-08-14] MEDS ORDERED: WARFARIN NA 5 MG TABLET (UD) PO ONE (18:34)
[2017-08-14] MEDS: WARFARIN NA 2.5 MG TABLET (FP) PO SCH (19:30)
[2017-08-14] MEDS ORDERED: LEVOFLOXACIN 500 MG IVPB 500 MG/100 ML BAG IVPB ONE ×2 (19:30→19:52)
[2017-08-14] MEDS ORDERED: WARFARIN NA 5 MG TABLET (UD) ONE (19:52)
[2017-08-14] MEDS: SODIUM CHLORIDE 0.45% 1,000 ML IV SCH (20:11)
[2017-08-14] MEDS: SOTALOL HCL 80 MG TABLET (FP) PO SCH (23:29)
[2017-08-15] MEDS: METRONIDAZOLE 500 MG PREMIXED 500 MG/100 ML MG IVPB SCH ×3 (02:01→17:47)
[2017-08-15 08:09] LABS: BASO % 1.1 % (0-2.0); EOS % 3.4 % (0-4.5); HEMATOCRIT 35.8 % (32.4-45.2); HEMOGLOBIN 11.5 GM/dL (10.7-15.3); MCH 28.6 pg (25.7-33.7); MCHC 32.1 g/dl (32.0-36.0); MEAN CELL VOLUME 89.1 fl (80-96); MEAN PLT VOLUME 8.8 fl (7.5-11.1); MONO % 10.1 % (3.8-10.2); NEUT % 65.4 % (42.8-82.8); PLATELET COUNT 224 K/MM3 (134-434); RBC 4.02 M/mm3 (3.60-5.2); RDW 15.4 % (11.6-15.6); WHITE BLOOD COUNT 8.8 K/mm3 (4.0-10.0)
[2017-08-15 08:41] LABS: ALBUMIN 3.2 g/dl (3.4-5.0); ANION GAP 10 (8-16); BLOOD UREA NITROGEN 10 mg/dL (7-18); CHLORIDE 107 mmol/L (98-107); CO2 25 mmol/L (21-32); GLUCOSE,RANDOM 97 mg/dL (74-106); POTASSIUM 4.6 mmol/L (3.5-5.1); SGOT/AST 20 U/L (15-37); SGPT/ALT 24 U/L (12-78); SODIUM 142 mmol/L (136-145)
[2017-08-15 08:43] LABS: ALK PHOS 86 U/L (45-117); BILIRUBIN,TOTAL 0.3 mg/dL (0.2-1.0); CALCIUM 9.1 mg/dL (8.5-10.1); CREATININE 0.7 mg/dL (0.55-1.02); TOT PROT 6.7 g/dl (6.4-8.2)
[2017-08-15] MEDS ORDERED: PT OWN MED DRAWER 7, Y5N ONE (10:40)
[2017-08-15] MEDS: SOTALOL HCL 80 MG TABLET (FP) PO SCH ×2 (10:43→21:44)
[2017-08-15] MEDS: PANTOPRAZOLE 40 MG TABLET (FP) PO SCH (10:44)
[2017-08-15] MEDS: VALSARTAN 160 MG TABLET (UD) PO SCH (10:44)
--- NOTE | 2017-08-15 14:22 | PN ---
Progress Note, Physician Chief Complaint: THIS IS MY FIRST ENCOUNTER WITH THIS PATIENT ON THIS ADMISSION RECORDS AND NOTES REVIEWED AWAKE SON BEDSIDE C/O BRBPR NO FEVER + ABD PAIN - Current Medication List Current Medications: Active Medications Acetaminophen/Codeine Phosphate (Tylenol # 3 -) 1 tab PO Q6H PRN PRN Reason: SEVERE PAIN Diltiazem HCl (Cardizem Cd -) 360 mg PO DAILY [facility] [place] Last Admin: 08/15/17 10:43 Dose: 360 mg Metronidazole (Flagyl 500mg Premixed Ivpb -) 500 mg in 100 mls @ 100 mls/hr IVPB Q8H-IV [facility] [place] Last Admin: 08/15/17 10:44 Dose: 100 mls/hr Sodium Chloride (1/2 Normal Saline) 1,000 mls @ 75 mls/hr IV ASDIR [facility] [place] Last Admin: 08/14/17 20:11 Dose: 75 mls/hr Levofloxacin (Levaquin 500 Mg Premixed Ivpb -) 500 mg in 100 mls @ 100 mls/hr IVPB DAILY [facility] [place] Pantoprazole Sodium (Protonix -) 40 mg PO DAILY [facility] [place] Last Admin: 08/15/17 10:44 Dose: 40 mg Sotalol HCl (Betapace -) 80 mg PO BID [facility] [place] Last Admin: 08/15/17 10:43 Dose: 80 mg Valsartan (Diovan -) 160 mg PO DAILY [facility] [place] Last Admin: 08/15/17 10:44 Dose: 160 mg Warfarin Sodium (Coumadin -) 2.5 mg PO [id number] [facility] [place] Last Admin: 08/14/17 19:30 Dose: 2.5 mg Warfarin Sodium (Coumadin -) 5 mg PO [id number] [facility] - Objective Vital Signs: Vital Signs Temperature 97.8 F 08/15/17 08:25 Pulse Rate 71 08/15/17 08:25 Respiratory Rate 18 08/15/17 08:25 Blood Pressure 164/79 08/15/17 08:25 O2 Sat by Pulse Oximetry (%) 96 08/14/17 23:00 Constitutional: Yes: Mild Distress Eyes: Yes: WNL HENT: Yes: WNL Neck: Yes: WNL Cardiovascular: Yes: Pulse Irregular Respiratory: Yes: WNL Gastrointestinal: Yes: Tenderness, Rebound Genitourinary: Yes: WNL Musculoskeletal: Yes: WNL Extremities: Yes: WNL Edema: No Peripheral Pulses WNL: Yes Integumentary: Yes: WNL Wound/Incision: Yes: Clean/Dry Neurological: Yes: WNL ...Motor Strength: WNL Psychiatric: Yes: WNL Labs: CBC, BMP 08/15/17 06:50 08/15/17 06:50 INR, PTT INR 2.06 (0.82-1.09) H 08/14/17 12:21 Problem List - Problems (1) Diverticulitis Code(s): K57.92 - DVTRCLI OF INTEST, PART UNSP, W/O PERF OR ABSCESS W/O BLEED (2) Afib Code(s): I48.91 - UNSPECIFIED ATRIAL FIBRILLATION Qualifiers: Atrial fibrillation type: paroxysmal Qualified Code(s): I48.0 - Paroxysmal atrial fibrillation (3) Atrial fibrillation, rapid Code(s): I48.91 - UNSPECIFIED ATRIAL FIBRILLATION (4) Diastolic dysfunction without heart failure Code(s): I51.9 - HEART DISEASE, UNSPECIFIED (5) Hyperlipidemia Code(s): E78.5 - HYPERLIPIDEMIA, UNSPECIFIED Qualifiers: Hyperlipidemia type: pure hypercholesterolemia Qualified Code(s): E78.00 - Pure hypercholesterolemia, unspecified; E78.0 - Pure hypercholesterolemia (6) Hypertension Code(s): I10 - ESSENTIAL (PRIMARY) HYPERTENSION Qualifiers: Hypertension type: essential hypertension Qualified Code(s): I10 - Essential (primary) hypertension (7) Pacemaker Code(s): Z95.0 - PRESENCE OF CARDIAC PACEMAKER Assessment/Plan IV LEVAQUIN AND FLAGYL CHECK ESR/CRP NOW ON COUMADIN FOR ADMINISTRATIVE SUPPORT ASSOC/SINUS TACHY SYNDROME WITH AFIB IF THE RECTAL BLEED CONTINUES WILL HOLD AC SX AND GI EVAL PENDING
[2017-08-15] MEDS: LEVOFLOXACIN 500 MG IVPB 500 MG/100 ML BAG IVPB SCH (15:37)
--- NOTE | 2017-08-15 15:46 | CONSULT ---
Consult Consult Specialty:: General Surgery Referred by:: Dr. Grissom Reason for Consultation:: diverticulitis, rectal bleeding - History of Present Illness Chief Complaint: BRBPR with BMs when wiping for several days History of Present Illness: 76yo F with multiple medical problems including afib on coumadin, sick sinus syndrome s/p pacemaker, diverticulosis and hemorrhoids, experiences intermittent BRBPR on toilet paper after BMs, and has had this multiple times in the last 4-5 days. She reports using Preparation H in past for hemorrhoidal itching with good effect, but has not done so recently. She had an episode of blood with wiping earlier today, but reports are that stool itself was brown. She denies abdominal pain at this time or significant recently. No f/c, no n/v, no diarrhea, "soft/normal BMs 2-3 times a day." WBC is normal. CT showed pandiverticulosis, area in sigmoid with mild inflammatory changes/haziness suggestive of possible mild diverticulitis, normal appendix, no obstruction. She has been started on Levo/Flagyl, and ID is also consulted. GI was consulted , has not seen her yet. Last colonoscopy was 3-4 years ago. Surgical history includes pacemaker and right oophorectomy. Surgery was asked to evaluate her for diverticulitis. - History Source History Provided By: Patient, Medical Record Limitations to Obtaining History: Language Barrier (Persian (some interpretation by Duong Platt at bedside)) - Past Medical History Cardio/Vascular: Yes: AFIB, CAD, HTN, Hyperlipdemia Gastrointestinal: Yes: Diverticulosis, GERD, GI Bleed (blood on toilet paper, has happened before), Hemorrhoids. No: Constipation Reproductive: Yes: Postmenopausal ...: No Musculoskeletal: Yes: Osteoarthritis (R shoulder/injury) - Past Surgical History Past Surgical History: Yes: Colonoscopy, Oopherectomy (right), Permanent Pacemaker, Upper Endoscopy - Alcohol/Substance Use Hx Alcohol Use: No History of Substance Use: reports: None - Smoking History Smoking history: Former smoker Have you smoked in the past 12 months: No Aproximately how many cigarettes per day: 0 If you are a former smoker, when did you quit?: 25 yrs - Social History ADL: Independent Home Medications - Allergies Allergies/Adverse Reactions: Allergies Allergy/AdvReac Type Severity Reaction Status Date / Time Penicillins AdvReac Mild Itching Verified 08/14/17 19:10 - Home Medications Home Medications: Ambulatory Orders Warfarin Sodium [Coumadin] 5 mg PO ASDIR 06/07/14 Sotalol HCl [Betapace -] 80 mg PO BID #28 tablet 06/10/14 Valsartan [Diovan] 160 mg PO DAILY #14 tablet 03/15/15 Warfarin Na [Coumadin -] 2.5 mg PO ASDIR 09/24/15 Diltiazem Cd [Cardizem Cd -] 360 mg PO DAILY #30 cap.cd.24h 08/27/16 Pravastatin Sodium [Pravachol (Nf)] 40 mg PO HS 12/30/16 Acetaminophen W/ Codeine #3 [Tylenol # 3 -] 1 tab PO Q6H PRN #12 tablet MDD 4 tabs 07/06/17 Fluticasone Prop 0.05% Nasal [Flonase -] 1 - 2 spray NS DAILY #1 spray.pump Lidocaine 5% Patch [Lidoderm -] 1 patch TP DAILY #3 patch 07/06/17 Family Disease History - Family Disease History Family History: Unremarkable Other Family History: hypertension Review of Systems - Review of Systems Constitutional: denies: Chills, Fever Eyes: denies: Blurred Vision, Recent Change in Vision HENT: denies: Difficult Swallowing, Throat Pain Neck: denies: Swollen Glands, Tenderness Cardiovascular: denies: Chest Pain, Palpitations Respiratory: denies: Cough, SOB Gastrointestinal: reports: Bloating, Rectal Bleeding (small amount, mostly on paper), Other (hemorrhoids, usually itching responds to Prep H, has not used recently). denies: Abdominal Pain (denies), Constipation, Diarrhea, Nausea, Vomiting Genitourinary: denies: Burning, Dysuria Musculoskeletal: reports: Extremity Pain (right upper arm, with movement of shoulder/elbow, previous injury - had rehab/therapy), Joint Pain (right shoulder /upper arm) Integumentary: denies: Change in Color, Rash Neurological: denies: Dizziness, Headache, Syncope Physical Exam Vital Signs: Vital Signs Temperature 98.4 F 08/15/17 15:00 Pulse Rate 60 08/15/17 15:00 Respiratory Rate 16 08/15/17 15:00 Blood Pressure 139/60 08/15/17 15:00 O2 Sat by Pulse Oximetry (%) 96 08/14/17 23:00 Constitutional: Yes: Well Nourished, No Distress, Calm Eyes: Yes: Conjunctiva Clear, EOM Intact HENT: Yes: Atraumatic, Normocephalic Neck: Yes: Supple, Trachea Midline Cardiovascular: Yes: Pulse Irregular, Murmur. No: Bradycardia, Tachycardia Respiratory: Yes: Regular, CTA Bilaterally Gastrointestinal: Yes: Normal Bowel Sounds, Soft, Abdomen, Obese, Distention ( minimal?), Tenderness (minimal LLQ only, no R/G). No: Rectal Bleeding ...Rectal Exam: Yes: Sphincter Tone Normal, Other (no gross blood on fingertip/ glove, small bit of soft, yellow-brown stool). No: Hemorrhoids/External Renal/: No: CVA Tenderness - Left, CVA Tenderness - Right Musculoskeletal: No: Back Pain, Joint Swelling Extremities: No: Cool, Cyanosis Integumentary: No: Jaundice, Rash Neurological: Yes: Alert, Oriented Psychiatric: Yes: Alert, Oriented Labs: CBC, BMP 08/15/17 06:50 08/15/17 06:50 INR, PTT INR 2.06 (0.82-1.09) H 08/14/17 12:21 CMP Sodium 142 mmol/L (136-145) 08/15/17 06:50 Potassium 4.6 mmol/L (3.5-5.1) 08/15/17 06:50 Chloride 107 mmol/L (98-107) 08/15/17 06:50 Carbon Dioxide 25 mmol/L (21-32) 08/15/17 06:50 Anion Gap 10 (8-16) 08/15/17 06:50 BUN 10 mg/dL (7-18) D 08/15/17 06:50 Creatinine 0.7 mg/dL (0.55-1.02) 08/15/17 06:50 Creat Clearance w eGFR > 60 (>60) 08/15/17 06:50 Random Glucose 97 mg/dL (74-106) 08/15/17 06:50 Calcium 9.1 mg/dL (8.5-10.1) 08/15/17 06:50 Total Bilirubin 0.3 mg/dL (0.2-1.0) 08/15/17 06:50 AST 20 U/L (15-37) D 08/15/17 06:50 ALT 24 U/L (12-78) 08/15/17 06:50 Alkaline Phosphatase 86 U/L (45-117) 08/15/17 06:50 Creatine Kinase 64 IU/L (26-192) 08/14/17 12:21 Troponin I < 0.02 ng/ml (0.00-0.05) 08/14/17 12:21 C-Reactive Protein 1.2 MG/DL (0.00-0.3) H 08/15/17 06:50 Total Protein 6.7 g/dl (6.4-8.2) 08/15/17 06:50 Albumin 3.2 g/dl (3.4-5.0) L 08/15/17 06:50 Lipase 132 U/L (73-393) 08/14/17 12:21 H/H stable INR therapeutic yesterday got 2.5mg coumadin last night (as at home) Imaging - Results Cat Scan: Report Reviewed (pandiverticulosis, no obstruction, mild area of haziness/inflammation in sigmoid, possible element of mild diverticulitis, no appendicitis), Image Reviewed Problem List - Problems (1) Diverticulitis large intestine w/o perforation or abscess w/bleeding Assessment/Plan: admitted to medicine on clear liquids, tolerating po denies abdominal pain very mild LLQ tenderness CT with pandiverticulosis, possible element of mild sigmoid diverticulitis pt reports no previous history of same on antibiotics, ID consulted no acute surgical issues at this time will follow with you Thank you for the opportunity to participate in the care of this patient. intermittent rectal bleeding may be secondary to diverticuli, hemorrhoids or both see below Code(s): K57.33 - DVTRCLI OF LG INT W/O PERFORATION OR ABSCESS W BLEEDING (2) Bleeding per rectum Assessment/Plan: ddx includes diverticular bleeding, hemorrhoidal bleeding, other lower GI source GI consulted consider scope to differentiate source Code(s): K62.5 - HEMORRHAGE OF ANUS AND RECTUM (3) Hemorrhoids, internal, with bleeding Assessment/Plan: pt reports h/o internal hemorrhoids and topical effective treatment unclear if bleeding related to these in past or now GI consulted Code(s): K64.8 - OTHER HEMORRHOIDS (4) Atrial fibrillation, rapid Assessment/Plan: on coumadin - currently still getting monitor INR if additional bleeding episodes, would hold Code(s): I48.91 - UNSPECIFIED ATRIAL FIBRILLATION (5) Coronary artery disease Code(s): I25.10 - ATHSCL HEART DISEASE OF [place] CORONARY ARTERY W/O ANG PCTRS Qualifiers: Coronary Disease-Associated Artery/Lesion type: [place] artery [place] vs. transplanted heart: [place] heart Associated angina: with stable angina Qualified Code(s): I25.118 - Atherosclerotic heart disease of [place] coronary artery with other forms of angina pectoris (6) Sick sinus syndrome Code(s): I49.5 - SICK SINUS SYNDROME (7) Pacemaker Code(s): Z95.0 - PRESENCE OF CARDIAC PACEMAKER (8) Diastolic dysfunction without heart failure Code(s): I51.9 - HEART DISEASE, UNSPECIFIED (9) Hyperlipidemia Code(s): E78.5 - HYPERLIPIDEMIA, UNSPECIFIED Qualifiers: Hyperlipidemia type: pure hypercholesterolemia Qualified Code(s): E78.00 - Pure hypercholesterolemia, unspecified; E78.0 - Pure hypercholesterolemia (10) Hypertension Code(s): I10 - ESSENTIAL (PRIMARY) HYPERTENSION Qualifiers: Hypertension type: essential hypertension Qualified Code(s): I10 - Essential (primary) hypertension
--- NOTE | 2017-08-15 16:09 | CON.ID ---
Consult Consult Specialty:: INFECTIOUS DISEASE - History of Present Illness History of Present Illness: Asked to evaluate this 76 y.o. female with PMH of CAD s/p CABG, sick sinus syndrome s/p PPM, AFIB on coumadin, arthritis, hemorrhoids, and extensive diverticulosis admitted for c/o recent epigastric pain, and nausea 2 days ago ( now resolved) and then noticed having small amount of bright blood on toilet paper when wiping. Pt states she had mild lower abd pain but no dark stools. She denies having any fever/chills, current abd pain, dysuria, cough, shortness of breath, chest pain. - History Source History Provided By: Patient Limitations to Obtaining History: No Limitations - Past Medical History Cardio/Vascular: Yes: AFIB, CAD, HTN, Hyperlipdemia Gastrointestinal: Yes: Diverticulosis, Hemorrhoids. No: Constipation ...: No Musculoskeletal: Yes: Osteoarthritis (R shoulder/injury) - Past Surgical History Past Surgical History: Yes: Colonoscopy, Oopherectomy (right), Permanent Pacemaker, Upper Endoscopy - Alcohol/Substance Use Hx Alcohol Use: No History of Substance Use: reports: None - Smoking History Smoking history: Former smoker Have you smoked in the past 12 months: No Aproximately how many cigarettes per day: 0 If you are a former smoker, when did you quit?: 25 yrs - Social History ADL: Independent History of Recent Travel: No Home Medications - Allergies Allergies/Adverse Reactions: Allergies Allergy/AdvReac Type Severity Reaction Status Date / Time Penicillins AdvReac Mild Itching Verified 08/14/17 19:10 - Home Medications Home Medications: Ambulatory Orders Warfarin Sodium [Coumadin] 5 mg PO ASDIR 06/07/14 Sotalol HCl [Betapace -] 80 mg PO BID #28 tablet 06/10/14 Valsartan [Diovan] 160 mg PO DAILY #14 tablet 03/15/15 Warfarin Na [Coumadin -] 2.5 mg PO ASDIR 09/24/15 Diltiazem Cd [Cardizem Cd -] 360 mg PO DAILY #30 cap.cd.24h 08/27/16 Pravastatin Sodium [Pravachol (Nf)] 40 mg PO HS 12/30/16 Acetaminophen W/ Codeine #3 [Tylenol # 3 -] 1 tab PO Q6H PRN #12 tablet MDD 4 tabs 07/06/17 Fluticasone Prop 0.05% Nasal [Flonase -] 1 - 2 spray NS DAILY #1 spray.pump Lidocaine 5% Patch [Lidoderm -] 1 patch TP DAILY #3 patch 07/06/17 Family Disease History - Family Disease History Other Family History: hypertension Review of Systems - Review of Systems Constitutional: reports: No Symptoms Eyes: reports: No Symptoms HENT: reports: No Symptoms Neck: reports: No Symptoms Cardiovascular: reports: No Symptoms Respiratory: reports: No Symptoms Gastrointestinal: reports: Rectal Bleeding Genitourinary: reports: No Symptoms Breasts: reports: No Symptoms Reported Integumentary: reports: No Symptoms Neurological: reports: No Symptoms Endocrine: reports: No Symptoms Hematology/Lymphatic: reports: No Symptoms Psychiatric: reports: No Symptoms Physical Exam Vital Signs: Vital Signs Temperature 98.4 F 08/15/17 15:00 Pulse Rate 60 08/15/17 15:00 Respiratory Rate 16 08/15/17 15:00 Blood Pressure 139/60 08/15/17 15:00 O2 Sat by Pulse Oximetry (%) 96 08/14/17 23:00 Constitutional: Yes: No Distress, Calm HENT: Yes: Atraumatic Cardiovascular: Yes: Regular Rate and Rhythm, Other (+PPM) Respiratory: Yes: CTA Bilaterally Gastrointestinal: Yes: Normal Bowel Sounds, Soft, Tenderness (minimal LLQ with deep palpation) Renal/: Yes: WNL Extremities: Yes: WNL Edema: No Integumentary: Yes: WNL Neurological: Yes: Alert, Oriented Labs: CBC, BMP 08/15/17 06:50 08/15/17 06:50 Imaging - Results Cat Scan: Report Reviewed (CT abd: amaya-diverticulosis, possible mild sigmoid diverticulitis, no abscess) Assessment/Plan 76 y.o. female with CAD s/p CABG, Afib on Coumadin, s/p PPM, diverticulosis, gastritis, and hemorrhoids admitted for mild amt of BRBPR she noted when wiping with mild LLQ abd pain . Had epigastric pain with nausea 2 days ago but resolved. CT Scan with evidence of mild diverticulitis. Sigmoid Diverticulitis - cont Levaquin/Flagyl IV empirically for now - case d/w Dr. Glover - GI to follow - cont. monitor vitals, pt stable at this time
[2017-08-15 16:13] LABS: INR 2.49 (0.82-1.09); PROTHROMBIN TIME (PATIENT) 28.1 SEC (9.98-11.88)
[2017-08-15] MEDS: SODIUM CHLORIDE 0.45% 1,000 ML IV SCH ×2 (16:57→21:43)
[2017-08-15] MEDS: WARFARIN NA 2.5 MG TABLET (FP) PO SCH (17:46)
[2017-08-16] MEDS: METRONIDAZOLE 500 MG PREMIXED 500 MG/100 ML MG IVPB SCH ×3 (02:50→17:09)
[2017-08-16 08:16] LABS: INR 2.6 (0.82-1.09); PROTHROMBIN TIME (PATIENT) 29.4 SEC (9.98-11.88)
--- NOTE | 2017-08-16 10:11 | PN ---
Progress Note, Physician History of Present Illness: patient starting to feels better no complaints mild abd pain says she is feeling hungry - Current Medication List Current Medications: Active Medications Acetaminophen/Codeine Phosphate (Tylenol # 3 -) 1 tab PO Q6H PRN PRN Reason: SEVERE PAIN Diltiazem HCl (Cardizem Cd -) 360 mg PO DAILY [facility] Last Admin: 08/15/17 10:43 Dose: 360 mg Metronidazole (Flagyl 500mg Premixed Ivpb -) 500 mg in 100 mls @ 100 mls/hr IVPB Q8H-IV [facility] Last Admin: 08/16/17 02:50 Dose: 100 mls/hr Sodium Chloride (1/2 Normal Saline) 1,000 mls @ 75 mls/hr IV ASDIR [facility] Last Admin: 08/15/17 21:43 Dose: Not Given Levofloxacin (Levaquin 500 Mg Premixed Ivpb -) 500 mg in 100 mls @ 100 mls/hr IVPB DAILY [facility] Last Admin: 08/15/17 15:37 Dose: 100 mls/hr Pantoprazole Sodium (Protonix -) 40 mg PO DAILY [facility] Last Admin: 08/15/17 10:44 Dose: 40 mg Sotalol HCl (Betapace -) 80 mg PO BID [facility] Last Admin: 08/15/17 21:44 Dose: 80 mg Valsartan (Diovan -) 160 mg PO DAILY [facility] Last Admin: 08/15/17 10:44 Dose: 160 mg Warfarin Sodium (Coumadin -) 2.5 mg PO [email or web address] [facility] Last Admin: 08/15/17 17:46 Dose: 2.5 mg Warfarin Sodium (Coumadin -) 5 mg PO MoWeFr@1800 [facility] - Objective Vital Signs: Vital Signs Temperature 98.2 F 08/16/17 07:43 Pulse Rate 61 08/16/17 07:43 Respiratory Rate 22 08/16/17 07:43 Blood Pressure 141/72 08/16/17 07:43 O2 Sat by Pulse Oximetry (%) 96 08/14/17 23:00 Constitutional: Yes: No Distress, Calm Cardiovascular: Yes: Regular Rate and Rhythm Respiratory: Yes: Regular, CTA Bilaterally Gastrointestinal: Yes: Normal Bowel Sounds, Soft Musculoskeletal: Yes: WNL Extremities: Yes: WNL Neurological: Yes: Alert, Oriented Psychiatric: Yes: Alert, Oriented Labs: CBC, BMP 08/15/17 06:50 08/15/17 06:50 INR, PTT INR 2.60 (0.82-1.09) H 08/16/17 07:00 Assessment/Plan Problem List - Problems (1) Diverticulitis large intestine w/o perforation or abscess w/bleeding Code(s): K57.33 - DVTRCLI OF LG INT W/O PERFORATION OR ABSCESS W BLEEDING (2) Bleeding per rectum Code(s): K62.5 - HEMORRHAGE OF ANUS AND RECTUM (3) Hemorrhoids, internal, with bleeding Code(s): K64.8 - OTHER HEMORRHOIDS (4) Atrial fibrillation, rapid Code(s): I48.91 - UNSPECIFIED ATRIAL FIBRILLATION (5) Coronary artery disease Code(s): I25.10 - ATHSCL HEART DISEASE OF [place] CORONARY ARTERY W/O ANG PCTRS Qualifiers: Coronary Disease-Associated Artery/Lesion type: [place] artery [place] vs. transplanted heart: [place] heart Associated angina: with stable angina Qualified Code(s): I25.118 - Atherosclerotic heart disease of [place] coronary artery with other forms of angina pectoris (6) Sick sinus syndrome Code(s): I49.5 - SICK SINUS SYNDROME (7) Pacemaker Code(s): Z95.0 - PRESENCE OF CARDIAC PACEMAKER (8) Diastolic dysfunction without heart failure Code(s): I51.9 - HEART DISEASE, UNSPECIFIED (9) Hyperlipidemia Code(s): E78.5 - HYPERLIPIDEMIA, UNSPECIFIED Qualifiers: Hyperlipidemia type: pure hypercholesterolemia Qualified Code(s): E78.00 - Pure hypercholesterolemia, unspecified; E78.0 - Pure hypercholesterolemia (10) Hypertension Code(s): I10 - ESSENTIAL (PRIMARY) HYPERTENSION Qualifiers: Hypertension type: essential hypertension Qualified Code(s): I10 - Essential (primary) hypertension plan continue current mgmt as per surgery and primary team await for advancement of diet one patient tolerates will switch to oral
[2017-08-16] MEDS: VALSARTAN 160 MG TABLET (UD) PO SCH (10:24)
[2017-08-16] MEDS: SOTALOL HCL 80 MG TABLET (FP) PO SCH ×2 (10:24→21:51)
[2017-08-16] MEDS: PANTOPRAZOLE 40 MG TABLET (FP) PO SCH (10:24)
[2017-08-16] MEDS: LEVOFLOXACIN 500 MG IVPB 500 MG/100 ML BAG IVPB SCH (11:32)
[2017-08-16] MEDS: ACETAMINOPHEN WITH CODEINE 300MG/30MG TABLET PO PRN (11:33)
--- NOTE | 2017-08-16 17:30 | PN ---
Progress Note, Physician Chief Complaint: AWAKE ALERT SITTING UP STILL WITH SOME ABD DISCOMFORT - Current Medication List Current Medications: Active Medications Acetaminophen/Codeine Phosphate (Tylenol # 3 -) 1 tab PO Q6H PRN PRN Reason: SEVERE PAIN Last Admin: 08/16/17 11:33 Dose: 1 tab Diltiazem HCl (Cardizem Cd -) 360 mg PO DAILY [facility] Last Admin: 08/16/17 10:24 Dose: 360 mg Metronidazole (Flagyl 500mg Premixed Ivpb -) 500 mg in 100 mls @ 100 mls/hr IVPB Q8H-IV [facility] Last Admin: 08/16/17 17:09 Dose: 100 mls/hr Sodium Chloride (1/2 Normal Saline) 1,000 mls @ 75 mls/hr IV ASDIR [facility] Last Admin: 08/15/17 21:43 Dose: Not Given Levofloxacin (Levaquin 500 Mg Premixed Ivpb -) 500 mg in 100 mls @ 100 mls/hr IVPB DAILY [facility] Last Admin: 08/16/17 11:32 Dose: 100 mls/hr Pantoprazole Sodium (Protonix -) 40 mg PO DAILY [facility] Last Admin: 08/16/17 10:24 Dose: 40 mg Sotalol HCl (Betapace -) 80 mg PO BID [facility] Last Admin: 08/16/17 10:24 Dose: 80 mg Valsartan (Diovan -) 160 mg PO DAILY [facility] Last Admin: 08/16/17 10:24 Dose: 160 mg Warfarin Sodium (Coumadin -) 2.5 mg PO SuTuThSa@1800 [facility] Last Admin: 08/15/17 17:46 Dose: 2.5 mg Warfarin Sodium (Coumadin -) 5 mg PO MoWeFr@1800 [facility] Last Admin: 08/16/17 17:09 Dose: 5 mg - Objective Vital Signs: Vital Signs Temperature 97.7 F 08/16/17 17:27 Pulse Rate 65 08/16/17 17:27 Respiratory Rate 20 08/16/17 17:27 Blood Pressure 154/72 08/16/17 17:27 O2 Sat by Pulse Oximetry (%) 98 08/16/17 10:00 Constitutional: Yes: Mild Distress Eyes: Yes: WNL HENT: Yes: WNL Neck: Yes: WNL Cardiovascular: Yes: Pulse Irregular Respiratory: Yes: WNL Gastrointestinal: Yes: Tenderness Genitourinary: Yes: WNL Musculoskeletal: Yes: WNL Extremities: Yes: WNL Edema: No Peripheral Pulses WNL: Yes Integumentary: Yes: WNL Wound/Incision: Yes: Clean/Dry Neurological: Yes: WNL ...Motor Strength: WNL Psychiatric: Yes: WNL Labs: CBC, BMP 08/15/17 06:50 08/15/17 06:50 INR, PTT INR 2.60 (0.82-1.09) H 08/16/17 07:00 Problem List - Problems (1) Diverticulitis Code(s): K57.92 - DVTRCLI OF INTEST, PART UNSP, W/O PERF OR ABSCESS W/O BLEED (2) Afib Code(s): I48.91 - UNSPECIFIED ATRIAL FIBRILLATION Qualifiers: Atrial fibrillation type: paroxysmal Qualified Code(s): I48.0 - Paroxysmal atrial fibrillation (3) Atrial fibrillation, rapid Code(s): I48.91 - UNSPECIFIED ATRIAL FIBRILLATION (4) Diastolic dysfunction without heart failure Code(s): I51.9 - HEART DISEASE, UNSPECIFIED (5) Hyperlipidemia Code(s): E78.5 - HYPERLIPIDEMIA, UNSPECIFIED Qualifiers: Hyperlipidemia type: pure hypercholesterolemia Qualified Code(s): E78.00 - Pure hypercholesterolemia, unspecified; E78.0 - Pure hypercholesterolemia (6) Hypertension Code(s): I10 - ESSENTIAL (PRIMARY) HYPERTENSION Qualifiers: Hypertension type: essential hypertension Qualified Code(s): I10 - Essential (primary) hypertension (7) Pacemaker Code(s): Z95.0 - PRESENCE OF CARDIAC PACEMAKER Assessment/Plan IV LEVAQUIN AND FLAGYL CHECK ESR/CRP NOW ON COUMADIN FOR [employer]/SINUS TACHY SYNDROME WITH AFIB IF THE RECTAL BLEED CONTINUES WILL HOLD AC SX AND GI EVAL PENDING
[2017-08-16] MEDS ORDERED: WARFARIN NA 5 MG TABLET (UD) PO SCH (18:00)
--- NOTE | 2017-08-16 18:55 | CON.GI ---
Consult Consult Specialty:: gastroenterology Referred by:: Dr Grissom - History of Present Illness History of Present Illness: 76 y/o F with PMH of diverticulosis and colonic polyp was admitted because of intermittent rectal bleeding associated with llq pain while on Warfarin. CT was done which was negative for neoplasm, diverticulitis and ischemia. The guaiac was negative. There was no leukocytosis and anemia. There were no further bleeding since admission. Patient has mild LLQ pain and is hungry. - Past Medical History Cardio/Vascular: Yes: AFIB, CAD, HTN, Hyperlipdemia Gastrointestinal: Yes: Diverticulosis, Hemorrhoids. No: Constipation ...: No Musculoskeletal: Yes: Osteoarthritis (R shoulder/injury) - Past Surgical History Past Surgical History: Yes: Colonoscopy, Oopherectomy (right), Permanent Pacemaker, Upper Endoscopy - Alcohol/Substance Use Hx Alcohol Use: No History of Substance Use: reports: None - Smoking History Smoking history: Former smoker Have you smoked in the past 12 months: No Aproximately how many cigarettes per day: 0 If you are a former smoker, when did you quit?: 25 yrs - Social History ADL: Independent History of Recent Travel: No Home Medications - Allergies Allergies/Adverse Reactions: Allergies Allergy/AdvReac Type Severity Reaction Status Date / Time Penicillins AdvReac Mild Itching Verified 08/14/17 19:10 - Home Medications Home Medications: Ambulatory Orders Warfarin Sodium [Coumadin] 5 mg PO ASDIR 06/07/14 Sotalol HCl [Betapace -] 80 mg PO BID #28 tablet 06/10/14 Valsartan [Diovan] 160 mg PO DAILY #14 tablet 03/15/15 Warfarin Na [Coumadin -] 2.5 mg PO ASDIR 09/24/15 Diltiazem Cd [Cardizem Cd -] 360 mg PO DAILY #30 cap.cd.24h 08/27/16 Pravastatin Sodium [Pravachol (Nf)] 40 mg PO HS 12/30/16 Acetaminophen W/ Codeine #3 [Tylenol # 3 -] 1 tab PO Q6H PRN #12 tablet MDD 4 tabs 07/06/17 Fluticasone Prop 0.05% Nasal [Flonase -] 1 - 2 spray NS DAILY #1 spray.pump Lidocaine 5% Patch [Lidoderm -] 1 patch TP DAILY #3 patch 07/06/17 Family Disease History - Family Disease History Other Family History: hypertension Review of Systems - Review of Systems Constitutional: denies: No Symptoms, Chills, Diaphoresis, Fever, Lethargy, Loss of Appetite, Malaise, Night Sweats, Unintentional Wgt. Loss, Weakness, Other Eyes: denies: No Symptoms, Blind Spots, Blurred Vision, Double Vision, Eye Pain , Floaters, Photophobia, Recent Change in Vision, Other Neck: denies: No Symptoms, Decreased ROM, Lumps, Pain on Movement, Stiffness, Swollen Glands, Tenderness, Other Gastrointestinal: reports: Rectal Bleeding Genitourinary: denies: No Symptoms, Burning, Discharge, Dysuria, Flank Pain, Frequency, Hematuria, Incontinence, Lesions, Menses, Pain, Testicular Mass, Testicular Pain, Testicular Swelling, Urgency, Vaginal Bleeding, Other Breasts: denies: No Symptoms Reported, See HPI, Breast Implants, Discharge from Nipple, Lumps, Pain, Skin Changes, Other Physical Exam-GI Vital Signs: Vital Signs Temperature 97.7 F 08/16/17 17:27 Pulse Rate 65 08/16/17 17:27 Respiratory Rate 20 08/16/17 17:27 Blood Pressure 154/72 08/16/17 17:27 O2 Sat by Pulse Oximetry (%) 98 08/16/17 10:00 Constitutional: Yes: Well Nourished Eyes: Yes: Conjunctiva Clear HENT: Yes: Atraumatic Neck: Yes: Supple Cardiovascular: Yes: Pulse Irregular Respiratory: Yes: CTA Bilaterally Gastrointestinal Inspection: No: Ascites ...Palpate: Yes: Soft, Tenderness (--mild llq). No: Firm/Rigid, Guarding, Hepatomegaly, Mass, Pulsatile Mass, Splenomegaly Labs: CBC, BMP 08/15/17 06:50 08/15/17 06:50 INR, PTT INR 2.60 (0.82-1.09) H 08/16/17 07:00 Imaging - Results Cat Scan: Image Reviewed Problem List - Problems (1) GI bleeding Assessment/Plan: r//o secondary to ischemia and diverticultis R> advance diet made aware to follow-up repeat colonoscopy in 6 weeks Code(s): K92.2 - GASTROINTESTINAL HEMORRHAGE, UNSPECIFIED
--- NOTE | 2017-08-16 19:47 | PN ---
Progress Note, Physician History of Present Illness: Pt with diverticulosis and hemorrhoids with intermittent BRBPR and mild sigmoid diverticulitis seen on CT at admission. On antibiotics, has been on clear liquids and tolerating. Reports + BMs today, small, but with no blood seen in last 24 hours. Hungry for diet. No abdominal pain at this time. No fevers, no nausea. Seen by GI tonight. - Current Medication List Current Medications: Active Medications Acetaminophen/Codeine Phosphate (Tylenol # 3 -) 1 tab PO Q6H PRN PRN Reason: SEVERE PAIN Last Admin: 08/16/17 11:33 Dose: 1 tab Diltiazem HCl (Cardizem Cd -) 360 mg PO DAILY [facility] Last Admin: 08/16/17 10:24 Dose: 360 mg Metronidazole (Flagyl 500mg Premixed Ivpb -) 500 mg in 100 mls @ 100 mls/hr IVPB Q8H-IV [facility] Last Admin: 08/16/17 17:09 Dose: 100 mls/hr Sodium Chloride (1/2 Normal Saline) 1,000 mls @ 75 mls/hr IV ASDIR [facility] Last Admin: 08/15/17 21:43 Dose: Not Given Levofloxacin (Levaquin 500 Mg Premixed Ivpb -) 500 mg in 100 mls @ 100 mls/hr IVPB DAILY [facility] Last Admin: 08/16/17 11:32 Dose: 100 mls/hr Nystatin (Mycostatin Cream -) 1 applic TP BID [facility] Pantoprazole Sodium (Protonix -) 40 mg PO DAILY [facility] Last Admin: 08/16/17 10:24 Dose: 40 mg Sotalol HCl (Betapace -) 80 mg PO BID [facility] Last Admin: 08/16/17 10:24 Dose: 80 mg Valsartan (Diovan -) 160 mg PO DAILY [facility] Last Admin: 08/16/17 10:24 Dose: 160 mg Warfarin Sodium (Coumadin -) 2.5 mg PO SuTuThSa@1800 [facility] Last Admin: 08/15/17 17:46 Dose: 2.5 mg Warfarin Sodium (Coumadin -) 5 mg PO MoWeFr@1800 [facility] Last Admin: 08/16/17 17:09 Dose: 5 mg - Objective Vital Signs: Vital Signs Temperature 97.7 F 08/16/17 17:27 Pulse Rate 65 12/25/17 17:27 Respiratory Rate 20 08/16/17 17:27 Blood Pressure 154/72 08/16/17 17:27 O2 Sat by Pulse Oximetry (%) 98 08/16/17 10:00 Constitutional: Yes: Well Nourished, No Distress, Calm Eyes: Yes: Conjunctiva Clear, EOM Intact HENT: Yes: Atraumatic, Normocephalic Gastrointestinal: Yes: Soft, Abdomen, Obese. No: Rectal Bleeding (reported by patient), Tenderness (no LLQ tenderness) ...Rectal Exam: Yes: Deferred Extremities: No: Cool, Cyanosis Integumentary: No: Jaundice, Rash Neurological: Yes: Alert, Oriented Labs: INR, PTT INR 2.60 (0.82-1.09) H 08/16/17 07:00 Problem List - Problems (1) Diverticulitis large intestine w/o perforation or abscess w/bleeding Assessment/Plan: tolerating clear liquids, hungry no abdominal pain or tenderness has had ~2 days of bowel rest on clears should be ok for low residue diet if no increase in pain with eating complete antibiotics as per ID f/u with GI as requested if bleeding recurs on coumadin, would hold and consider endoscopy sooner Code(s): K57.33 - DVTRCLI OF LG INT W/O PERFORATION OR ABSCESS W BLEEDING (2) Bleeding per rectum Assessment/Plan: ddx includes diverticular bleeding, hemorrhoidal bleeding, other lower GI source GI plans outpt f/u Code(s): K62.5 - HEMORRHAGE OF ANUS AND RECTUM (3) Hemorrhoids, internal, with bleeding Assessment/Plan: pt reports h/o internal hemorrhoids and topical effective treatment unclear if bleeding related to these in past or now Code(s): K64.8 - OTHER HEMORRHOIDS (4) Atrial fibrillation, rapid Assessment/Plan: on coumadin monitor INR if additional bleeding episodes, would hold Code(s): I48.91 - UNSPECIFIED ATRIAL FIBRILLATION (5) Coronary artery disease Code(s): I25.10 - ATHSCL HEART DISEASE OF [place] CORONARY ARTERY W/O ANG PCTRS Qualifiers: Coronary Disease-Associated Artery/Lesion type: [place] artery [place] vs. transplanted heart: [place] heart Associated angina: with stable angina Qualified Code(s): I25.118 - Atherosclerotic heart disease of [place] coronary artery with other forms of angina pectoris (6) Sick sinus syndrome Code(s): I49.5 - SICK SINUS SYNDROME (7) Pacemaker Code(s): Z95.0 - PRESENCE OF CARDIAC PACEMAKER (8) Diastolic dysfunction without heart failure Code(s): I51.9 - HEART DISEASE, UNSPECIFIED (9) Hyperlipidemia Code(s): E78.5 - HYPERLIPIDEMIA, UNSPECIFIED Qualifiers: Hyperlipidemia type: pure hypercholesterolemia Qualified Code(s): E78.00 - Pure hypercholesterolemia, unspecified; E78.0 - Pure hypercholesterolemia (10) Hypertension Code(s): I10 - ESSENTIAL (PRIMARY) HYPERTENSION Qualifiers: Hypertension type: essential hypertension Qualified Code(s): I10 - Essential (primary) hypertension
[2017-08-16] MEDS: SODIUM CHLORIDE 0.45% 1,000 ML IV SCH (21:51)
[2017-08-16] MEDS: NYSTATIN 100,000 UNIT/GM TOPICAL CREAM 15 GM TUBE TP SCH (21:52)
[2017-08-17] MEDS: METRONIDAZOLE 500 MG PREMIXED 500 MG/100 ML MG IVPB SCH ×2 (02:50→11:51)
[2017-08-17] MEDS ORDERED: PT OWN MED DRAWER 7, Y5N ONE (07:08)
[2017-08-17 08:18] LABS: HEMOGLOBIN 11.8 GM/dL (10.7-15.3); MCH 28.3 pg (25.7-33.7); MCHC 31.7 g/dl (32.0-36.0); MEAN CELL VOLUME 89.1 fl (80-96); MEAN PLT VOLUME 8.6 fl (7.5-11.1); PLATELET COUNT 255 K/MM3 (134-434); RBC 4.15 M/mm3 (3.60-5.2); RDW 15.8 % (11.6-15.6); WHITE BLOOD COUNT 8.4 K/mm3 (4.0-10.0)
[2017-08-17 08:28] LABS: INR 3.43 (0.82-1.09); PROTHROMBIN TIME (PATIENT) 38.8 SEC (9.98-11.88)
[2017-08-17 08:37] LABS: ALBUMIN 3.1 g/dl (3.4-5.0); ANION GAP 8 (8-16); BILIRUBIN,TOTAL 0.4 mg/dL (0.2-1.0); BLOOD UREA NITROGEN 7 mg/dL (7-18); CALCIUM 8.4 mg/dL (8.5-10.1); CHLORIDE 107 mmol/L (98-107); CO2 25 mmol/L (21-32); CREATININE 0.8 mg/dL (0.55-1.02); GLUCOSE,RANDOM 106 mg/dL (74-106); MAGNESIUM 2.2 mg/dL (1.8-2.4); POTASSIUM 4.2 mmol/L (3.5-5.1); SGOT/AST 35 U/L (15-37); SGPT/ALT 25 U/L (12-78); SODIUM 140 mmol/L (136-145); TOT PROT 6.4 g/dl (6.4-8.2)
[2017-08-17 08:38] LABS: ALK PHOS 76 U/L (45-117)
--- NOTE | 2017-08-17 10:16 | DS ---
Physical Examination Vital Signs: Vital Signs Temperature 98.6 F 08/17/17 05:00 Pulse Rate 68 08/17/17 05:00 Respiratory Rate 18 08/17/17 05:00 Blood Pressure 121/63 08/17/17 05:00 O2 Sat by Pulse Oximetry (%) 98 08/16/17 22:00 Constitutional: Yes: Well Nourished, No Distress, Calm Cardiovascular: Yes: Pulse Irregular Respiratory: Yes: Regular Gastrointestinal: Yes: Normal Bowel Sounds, Soft Musculoskeletal: Yes: WNL Extremities: Yes: WNL Edema: No Peripheral Pulses WNL: Yes Neurological: Yes: Alert, Oriented Psychiatric: Yes: Alert, Oriented Labs: CBC, BMP 08/17/17 06:35 08/17/17 06:35 Discharge Summary Reason For Visit: DIVERTICULOSIS OF INTESTINE Current Active Problems Diverticulitis (Acute) Diverticulosis (Acute) Diverticulosis large intestine w/o perforation or abscess w/bleeding (Acute) Diverticulitis large intestine w/o perforation or abscess w/bleeding (Acute) Bleeding per rectum (Acute) Hemorrhoids, internal, with bleeding (Acute) GI bleeding (Acute) Hospital Course: This is a 76 year old female with pmhx HTN, CAD, sick sinus syndrome s/p ppm, A fib (on coumadin) presented to the ED with x2 days of abdominal pain and bright red blood per rectum. Pt denies hemaemesis, but reports nausea. Currently, she does not have any abdominal pain, stool guaiac is negative, hgb stable. In the past she was seen by Dr. Zavala had an EGD with polyps removed and diverticulosis, d/w Dr. Gamboa, one polyp was seen as high grade and patient will need repeat EGD. Condition: Guarded - Instructions Diet, Activity, Other Instructions: Low residue diet Hold warfarin today, resume tomorrow 08/18/17 at 2.5 mg daily, 7 days/week Flagyl 500 mg 3 x day for 5 days Levaquin 500 mg 1 tab daily for 5 days Referrals: Alec Gamboa MD [Staff Physician] - 08/24/17 Disposition: HOME - Home Medications Comprehensive Discharge Medication List: Ambulatory Orders Warfarin Sodium [Coumadin] 5 mg PO ASDIR 06/07/14 Sotalol HCl [Betapace -] 80 mg PO BID #28 tablet 06/10/14 Valsartan [Diovan] 160 mg PO DAILY #14 tablet 03/15/15 Warfarin Na [Coumadin -] 2.5 mg PO ASDIR 09/24/15 Diltiazem Cd [Cardizem Cd -] 360 mg PO DAILY #30 cap.cd.24h 08/27/16 Pravastatin Sodium [Pravachol (Nf)] 40 mg PO HS 12/30/16 Acetaminophen W/ Codeine #3 [Tylenol # 3 -] 1 tab PO Q6H PRN #12 tablet MDD 4 tabs 07/06/17 Fluticasone Prop 0.05% Nasal [Flonase -] 1 - 2 spray NS DAILY #1 spray.pump Lidocaine 5% Patch [Lidoderm -] 1 patch TP DAILY #3 patch 07/06/17
[2017-08-17] MEDS: VALSARTAN 160 MG TABLET (UD) PO SCH (11:35)
[2017-08-17] MEDS: SOTALOL HCL 80 MG TABLET (FP) PO SCH (11:35)
[2017-08-17] MEDS: PANTOPRAZOLE 40 MG TABLET (FP) PO SCH (11:35)
[2017-08-17] MEDS: ACETAMINOPHEN WITH CODEINE 300MG/30MG TABLET PO PRN (11:35)
[2017-08-17] MEDS: NYSTATIN 100,000 UNIT/GM TOPICAL CREAM 15 GM TUBE TP SCH (11:36)
[2017-08-17] MEDS: LEVOFLOXACIN 500 MG IVPB 500 MG/100 ML BAG IVPB SCH (11:51)
[2017-08-17 12:22] VITALS: BP 136/62; PULSE 62; TEMP 98
[2017-08-17 13:06] LABS: ERYTHROCYTE SEDIMENTATION RATE 54 mm/hr (0-30)
== END 2017-08-17 11:53 | disposition home or self-care (01) | DRG 393 ==
LOC: JER 10:52 → JERBED 18:23 → J8W 22:50 → OBSVTOIN 08-16 11:28
PROVIDERS: ADMIT Family Medicine; ATTEND Family Medicine
DX: K64.8 Other hemorrhoids (principal); K57.33 Diverticulitis of large intestine without perforation or abscess with bleeding; K62.5 Hemorrhage of anus and rectum; I25.10 Atherosclerotic heart disease of native coronary artery without angina pectoris; I48.0 Paroxysmal atrial fibrillation; K76.0 Fatty (change of) liver, not elsewhere classified; E78.5 Hyperlipidemia, unspecified; K21.9 Gastro-esophageal reflux disease without esophagitis; M19.011 Primary osteoarthritis, right shoulder; I11.9 Hypertensive heart disease without heart failure; K29.60 Other gastritis without bleeding; Z95.0 Presence of cardiac pacemaker; Z95.1 Presence of aortocoronary bypass graft; Z85.828 Personal history of other malignant neoplasm of skin; Z79.01 Long term (current) use of anticoagulants
CPT/HCPCS: 36415; 71020-TC; 74177-TC; 80053; 81003; 81015; 82272; 82550; 83690; 83735; 84443; 84484; 85025; 85027; 85610; 85651; 86140; 86850; 86900; 86901; 87086; 93005; 93010; 99285-25; G0378

== ENCOUNTER 2017-10-13 10:19 | Emergency (ER) | payer OTHER ==
[2017-10-13 10:27] VITALS: TEMP 97.3; BMI 26.6
--- NOTE | 2017-10-13 11:39 | PDOC ---
History of Present Illness - General History Source: Patient Exam Limitations: No Limitations - History of Present Illness Initial Comments: 10/13/17 12:14 The patient is a 77 year old female with history of hypertension, hyperlipidemia , CAD s/p CABG, scheduled for R shoulder arthroscopy in 10/2017 who presents to the ED for complaints of right shoulder pain. The patient complains she has pain that persists with taking Tylenol and Tramadol prescribed by her orthopedist. She complains that she now feels generally weak and has described appetite recently secondary to her pain. No fever or chills. Orthopedic Surgeon: Dr. Valencia <Olive Umanzor - Last Filed: 10/13/17 12:16> <Aidan Chand - Last Filed: 10/13/17 12:49> - General Chief Complaint: Pain Stated Complaint: RT ARM PAIN Time Seen by Provider: 10/13/17 11:00 Past History <Olive Umanzor - Last Filed: 10/13/17 12:16> - Past Medical History Anemia: No Asthma: No Cancer: Yes (SKIN CA- EARLOBE) Cardiac Disorders: Yes (CORONARY ARTERY DISEASE,Pacemaker) CVA: No COPD: No CHF: No Dementia: No Diabetes: No GI Disorders: Yes (GASTRITIS, diverticlitis) Disorders: No HTN: Yes Hypercholesterolemia: Yes Liver Disease: (FATTY LIVER) Seizures: No Thyroid Disease: No - Surgical History Abdominal Surgery: No Appendectomy: No Cardiac Surgery: Yes (PACEMAKER IMPLANT-[employer]-02/2011) Cholecystectomy: No Lung Surgery: No Neurologic Surgery: No Orthopedic Surgery: No - Family Disease History Family Disease History: Heart Disease: Father - Immunization History Immunization Up to Date: Yes - Suicide/Smoking/Psychosocial Hx Smoking Status: Yes Smoking History: Never smoked Have you smoked in the past 12 months: No Number of Cigarettes Smoked Daily: 0 If you are a former smoker, when did you quit?: 25 yrs Information on smoking cessation initiated: No Hx Alcohol Use: No Drug/Substance Use Hx: No Substance Use Type: None Hx Substance Use Treatment: No <Aidan Chand - Last Filed: 10/13/17 12:49> - Past Medical History Allergies/Adverse Reactions: Allergies Allergy/AdvReac Type Severity Reaction Status Date / Time Penicillins AdvReac Mild Itching Verified 10/13/17 10:27 Home Medications: Ambulatory Orders Sotalol HCl [Betapace -] 80 mg PO BID #28 tablet 06/10/14 Valsartan [Diovan] 160 mg PO DAILY #14 tablet 03/15/15 Warfarin Na [Coumadin -] 2.5 mg PO ASDIR 09/24/15 Diltiazem Cd [Cardizem Cd -] 360 mg PO DAILY #30 cap.cd.24h 08/27/16 Pravastatin Sodium [Pravachol -] 40 mg PO HS 12/30/16 Acetaminophen W/ Codeine #3 [Tylenol # 3 -] 1 tab PO Q6H PRN #12 tablet MDD 4 tabs 07/06/17 Fluticasone Prop 0.05% Nasal [Flonase -] 1 - 2 spray NS DAILY #1 spray.pump Lidocaine 5% Patch [Lidoderm -] 1 patch TP DAILY #3 patch 07/06/17 Pantoprazole Sodium [Protonix -] 40 mg PO DAILY #30 tablet.ec 08/17/17 Review of Systems - Review of Systems Able to Perform ROS?: Yes Comments:: 10/13/17 12:19 CONSTITUTIONAL: No fever, no chills, no fatigue. EYES: No visual changes ENT: No ear pain, no sore throat CARDIOVASCULAR: No chest pain, no palpitations RESPIRATORY: No cough, no SOB GI: No abdominal pain, no nausea, no vomiting, no constipation, no diarrhea GENITOURINARY: No dysuria, no frequency, no hematuria MUSCULOSKELETAL: R shoulder pain. No backpain, no myalgias SKIN: No rash NEURO: No headache <Olive Umanzor - Last Filed: 10/13/17 12:16> *Physical Exam - Vital Signs Last Vital Signs Temp Pulse Resp BP Pulse Ox 97.3 F L 68 18 164/71 99 10/13/17 10:23 10/13/17 10:23 10/13/17 10:23 10/13/17 10:23 10/13/17 10:23 - Physical Exam Comments: 10/13/17 12:19 CONSTITUTIONAL: Well-appearing; well-nourished; in no apparent distress HEAD: Normocephalic; atraumatic EYES: PERRL; EOM intact ENMT: External appears normal; normal oropharynx NECK: Supple; non-tender; no cervical lymphadenopathy CARD: Normal S1, S2; no murmurs, rubs, or gallops RESP: Normal chest excursion with respiration; breath sounds clear and equal bilaterally; no wheezes, rhonchi, or rales ABD: Soft, non-distended; non-tender; no palpable organomegaly, no palpable hernias SKIN: Warm, dry, no rash NEURO: No focal neurological deficiencies. <Olive Umanzor - Last Filed: 10/13/17 12:16> - Vital Signs Last Vital Signs Temp Pulse Resp BP Pulse Ox 97.3 F L 68 18 164/71 99 10/13/17 10:23 10/13/17 10:23 10/13/17 10:23 10/13/17 10:23 10/13/17 10:23 - Physical Exam Comments: 10/13/17 12:45 EXTR: No obvious deformity; + mild tenderness on palpation of anterior and lateral aspects of the right shoulder joint, with pain on external/internal rotation, abduction, flexion, extension. Neurovascularly intact distally. <Aidan Chand - Last Filed: 10/13/17 12:49> Medical Decision Making - Medical Decision Making 10/13/17 12:46 Patient is a well-appearing 77-year-old female with history of chronic right shoulder derangement syndrome who presents to the ER with severe pain, and weakness. Pain is not effectively controlled by by mouth acetaminophen and tramadol. Weakness is associated with worsening shoulder pain and is not associated with fevers/chills/nausea/vomiting/chest pain/abdominal pain/dysuria/ hematuria. No acute issues are present. I advised the patient that more powerful pain medication would involve narcotics which may be deleterious to 77- year-old patient. Will provide sling for temporary relief only. Patient advised to mobilize the extremity is much as possible. Will discharge with outpatient follow-up. <Aidan Chand - Last Filed: 10/13/17 12:49> *DC/Admit/Observation/Transfer - Attestations Scribe Attestion: 10/13/17 12:20 Documentation prepared by Olive Umanzor, acting as medical sonographer for Aidan Chand MD. <Olive Umanzor - Last Filed: 10/13/17 12:16> - Attestations Physician Attestion: 10/13/17 12:39 The documentation was prepared by the scribe under my direct supervision. I have reviewed the documentation which correctly represents the findings, medical decision-making and critical action taken by me. <Aidan Chand - Last Filed: 10/13/17 12:49> Diagnosis at time of Disposition: Shoulder pain, right Qualifiers: Chronicity: chronic Qualified Code(s): M25.511 - Pain in right shoulder; G89.29 - Other chronic pain; G89.29 - Other chronic pain - Discharge Dispostion Disposition: HOME Condition at time of disposition: Stable - Referrals Referrals: Bradley Valencia MD [Staff Physician] - - Patient Instructions Printed Discharge Instructions: DI for Shoulder Pain Print Language: BRUNEIAN
[2017-10-13] MEDS ORDERED: ACETAMINOPHEN 325 MG TABLET (FP) PO ONE (11:57)
[2017-10-13] MEDS ORDERED: ACETAMINOPHEN 325 MG TABLET (FP) ONE (12:11)
[2017-10-13 12:32] VITALS: BP 158/72; PULSE 71
== END 2017-10-13 12:32 | disposition home or self-care (01) ==
LOC: JER 10:19
DX: M25.511 Pain in right shoulder (principal); G89.29 Other chronic pain; I25.810 Atherosclerosis of coronary artery bypass graft(s) without angina pectoris; I10 Essential (primary) hypertension; Z95.1 Presence of aortocoronary bypass graft; E78.00 Pure hypercholesterolemia, unspecified; Z95.0 Presence of cardiac pacemaker
CPT/HCPCS: 99282-25

== ENCOUNTER 2017-11-02 14:20 | Inpatient (IN) | payer OTHER ==
--- NOTE | 2017-11-02 14:28 | PDOC ---
Rapid Medical Evaluation Time Seen by Provider: 11/02/17 14:23 Medical Evaluation: Allergies Allergy/AdvReac Type Severity Reaction Status Date / Time Penicillins AdvReac Mild Itching Verified 11/02/17 14:23 11/02/17 14:25 77 year old female with Afib (on Eliquis, holding since Wednesday 3pm for anticipated shoulder impingement surgery tomorrow), HLD, chronic back pain, moderate MV stenosis, osteoporosis, and mediastinal lymphadenopathy sent by her PCP for dizziness, fatigue, and poor appetite. Her accompanying paperwork states that she should be admitted to Dr. Negrete. -EKG -Labs including CBC, CMP, cardiac profile, PT/INR -UA/culture -CXR -To Main ED for further evaluation. Discharge Disposition - Referrals Referrals: Дмитрий Hughes [Primary Care Provider] - - Patient Instructions - Post Discharge Activity
--- NOTE | 2017-11-02 14:49 | PDOC ---
Attending Attestation - HPI HPI: 11/02/17 16:21 The patient is a 77-year-old female with a significant past medical history of hypertension, hyperlipidemia, CAD s/p CABG, a-fib (on Eliquis), moderate mitral valve stenosis, mediastinal lymphadenopathy, diverticulitis, and chronic back pain, who presents to the emergency department with generalized weakness, dizziness, and weight loss for a few months. The patient reports associated fatigue and decreased intake of food. As per son, the patient has not been getting out of bed as often.The patient was scheduled for right shoulder surgery with Dr. Valencia tomorrow and stopped taking Eliquis for 3 days, but was sent to the ED by PCP Dr. Carbone over concern of her fatigue. The patient denies chest pain, shortness of breath, and headache. The patient denies fever, chills, nausea, vomit, diarrhea and constipation. The patient denies dysuria, frequency, urgency and hematuria. - Physicial Exam PE: 11/02/17 16:49 Vitals: Triage Vital signs reviewed General Appearance: no acute distress, well nourished well developed, Head: Atraumatic, normocephalic Eyes: Pupils equal reactive round, extraocular movement intact Cardiac: Regular rate and rhythm, no murmurs, no rubs, no gallops, Lungs: Clear to auscultation bilateral, good air movement bilaterally, Abdomen: Soft, nondistended, normal bowel sounds, nontender to palpation Extremities: Moving all extremities, no cyanosis, clubbing, or edema. (+) Chronic right shoulder pain. Skin: Warm and dry, no rashes or lesions, no petechiae Neuro: AOX3; Cranial Nerves 2-12 grossly intact, Strength intact to all extremities, Sensation intact to all extremities Psych: normal mood, normal affect <Rosangela Baez - Last Filed: 11/02/17 16:56> - Resident Resident Name: Vannessa Hyatt - ED Attending Attestation I have performed the following: I have examined & evaluated the patient, The case was reviewed & discussed with the resident, I agree w/resident's findings & plan, Exceptions are as noted - Medical Decision Making 11/02/17 18:31 77 years old past medical history significant for hypertension hyperlipidemia CAD status post CABG A. fib on eliquis, moderate mitral valve stenosis mediastinal lymphadenopathy, diverticulitis chronic back pain presents to the ED with generalized weakness dizziness weight loss for a few months sent into the emergency department for admission per her primary care provider here in the emergency department nonfocal neurologic examination We'll check labs EKG and imaging <Sher Barajas - Last Filed: 11/02/17 18:34> Heart Score/ECG Review - ECG Impressions Comment:: 11/02/17 18:32 Atrial paced rhythm with prolonged AV conduction left axis deviation left bundle branch block rate is 60 bpm Unchanged from previous Interpreted by me <Sher Barajas - Last Filed: 11/02/17 18:34>
--- NOTE | 2017-11-02 15:03 | PDOC ---
History of Present Illness - General Chief Complaint: Lightheaded Stated Complaint: PCP REFERRED TO ADMIT Time Seen by Provider: 11/02/17 14:23 History Source: Patient Exam Limitations: No Limitations - History of Present Illness Initial Comments: This is a 77 YOF with h/o Afib (on Eliquis), hemorrhoids with rectal bleeding, HLD, chronic back pain, moderate MV stenosis, osteoporosis, and mediastinal lymphadenopathy sent by her PCP Juanito Carbone because for the past month she has been having worsening decreased PO intake, fatigue, lightheadedness, and generalized weakness, as well as a 10 lb weight loss. The patient has chronic right shoulder pain and had been scheduled to have surgery with Dr. Valencia tomorrow. She stopped her Eliquis three days ago in preparation for this, but saw Dr. Carbone this morning for her fatigue and he instructed her to come into the ED for admission. The patient herself states that her decreased PO intake is d/t shoulder pain. She notes that her last colonoscopy was [address] Matta. Past History - Past Medical History Allergies/Adverse Reactions: Allergies Allergy/AdvReac Type Severity Reaction Status Date / Time Penicillins AdvReac Mild Itching Verified 11/02/17 14:23 Home Medications: Ambulatory Orders Sotalol HCl [Betapace -] 80 mg PO BID #28 tablet 06/10/14 Valsartan [Diovan] 160 mg PO DAILY #14 tablet 03/15/15 Warfarin Na [Coumadin -] 2.5 mg PO ASDIR 09/24/15 Diltiazem Cd [Cardizem Cd -] 360 mg PO DAILY #30 cap.cd.24h 08/27/16 Pravastatin Sodium [Pravachol -] 40 mg PO HS 12/30/16 Acetaminophen W/ Codeine #3 [Tylenol # 3 -] 1 tab PO Q6H PRN #12 tablet MDD 4 tabs 07/06/17 Fluticasone Prop 0.05% Nasal [Flonase -] 1 - 2 spray NS DAILY #1 spray.pump Lidocaine 5% Patch [Lidoderm -] 1 patch TP DAILY #3 patch 07/06/17 Pantoprazole Sodium [Protonix -] 40 mg PO DAILY #30 tablet.ec 08/17/17 Anemia: No Asthma: No Cancer: Yes (SKIN CA- EARLOBE) Cardiac Disorders: Yes (CORONARY ARTERY DISEASE,Pacemaker) CVA: No COPD: No CHF: No Dementia: No Diabetes: No GI Disorders: Yes (GASTRITIS, diverticlitis) Disorders: No HTN: Yes Hypercholesterolemia: Yes Liver Disease: (FATTY LIVER) Seizures: No Thyroid Disease: No - Surgical History Abdominal Surgery: No Appendectomy: No Cardiac Surgery: Yes (PACEMAKER IMPLANT-[facility]-02/2011) Cholecystectomy: No Lung Surgery: No Neurologic Surgery: No Orthopedic Surgery: No - Family Disease History Family Disease History: Heart Disease: Father - Immunization History Immunization Up to Date: Yes - Suicide/Smoking/Psychosocial Hx Smoking Status: Yes Smoking History: Never smoked Have you smoked in the past 12 months: No Number of Cigarettes Smoked Daily: 0 If you are a former smoker, when did you quit?: 25 yrs Hx Alcohol Use: No Drug/Substance Use Hx: No Substance Use Type: None Hx Substance Use Treatment: No Review of Systems - Review of Systems Able to Perform ROS?: Yes Constitutional: Yes: Loss of Appetite, Weakness. No: Chills, Fever, Night Sweats, Unexplained wgt Loss HEENTM: No: Nose Congestion, Throat Pain Respiratory: No: Cough, Shortness of Breath Cardiac (ROS): Yes: Lightheadedness. No: Chest Pain, Palpitations ABD/GI: Yes: Poor Appetite. No: Constipated, Diarrhea, Nausea, Vomiting : No: Burning, Dysuria Musculoskeletal: No: Back Pain, Neck Pain Integumentary: No: Bruising, Rash Neurological: No: Headache, Numbness, Tingling, Weakness Endocrine: No: Unexplained Weight Gain, Unexplained Weight Loss *Physical Exam - Vital Signs Last Vital Signs Temp Pulse Resp BP Pulse Ox 97.8 F 60 20 118/80 98 11/02/17 14:23 11/02/17 14:23 11/02/17 14:23 11/02/17 14:23 11/02/17 14:23 - Physical Exam General Appearance: Yes: Nourished, Appropriately Dressed, Other (very pleasant Cambodian-speaking female in no distress and answering questions appropriately). No: Apparent Distress HEENT: positive: EOMI, OTTO, Normal Voice, Hearing Grossly Normal. negative: Scleral Icterus (R), Scleral Icterus (L), Nasal Congestion Neck: positive: Trachea midline, Supple, Other (no Virchow's node). negative: Tender, Rigid, Lymphadenopathy (R), Lymphadenopathy (L) Respiratory/Chest: positive: Lungs Clear, Normal Breath Sounds. negative: Respiratory Distress, Crackles, Rhonchi, Stridor, Wheezing Cardiovascular: positive: Regular Rhythm, Regular Rate, Other (2/3 systolic ejection murmur). negative: Edema, JVD Gastrointestinal/Abdominal: positive: Normal Bowel Sounds, Soft. negative: Tender, Organomegaly, Pulsatile Mass, Guarding Musculoskeletal: positive: Normal Inspection. negative: Decreased Range of Motion, Vertebral Tenderness Extremity: positive: Normal Capillary Refill, Normal Inspection, Normal Range of Motion. negative: Tender, Cyanosis Integumentary: positive: Normal Color, Dry, Warm, Other (left anterior axillary line scar from prior surgery). negative: Erythema, Rash, Bruising Neurologic: positive: secondary school principal II-XII NML intact, Fully Oriented, Alert, Normal Mood/ Affect, Normal Response, Motor Strength 5/5, Finger to Nose (normal). negative : EOM Palsy, Facial Droop, Numbness, Sensory Deficit, Confused, Disoriented ED Treatment Course - LABORATORY CBC & Chemistry Diagram: 11/02/17 15:00 11/02/17 15:00 Medical Decision Making - Medical Decision Making 77 YOF with Afib (on Eliquis), HLD, chronic back pain, moderate MV stenosis, osteoporosis, and mediastinal lymphadenopathy. Presents from Dr. Carbone's office for admission to Dr. Negrete for failure to thrive, weight loss, decreased PO intake. On exam the patient's VS wnl, NAD, alert and oriented and interactive, nonfocal neuro exam, 2/6 systolic ejection murmur. Otherwise exam is wnl. DDX IBNLT UTI, PNA, hypothyroidism, CVA, malignancy, anemia, electrolyte derangement, med reaction, arrhythmia, ACS, PMR, etc. WBC is 12.2, UA with 1+ blood. EKG shows atrial paced rhythm with prolonged OR interval and LBBB and QTc 516, unchanged from priors. *DC/Admit/Observation/Transfer Diagnosis at time of Disposition: Hematuria, Leukocytosis Failure to thrive Qualifiers: Failure to thrive age range: in adult Qualified Code(s): R62.7 - Adult failure to thrive Shoulder pain Qualifiers: Chronicity: chronic Laterality: right Qualified Code(s): M25.511 - Pain in right shoulder - Discharge Dispostion Condition at time of disposition: Guarded Admit: Yes - Referrals Referrals: Дмитрий Hughes [Primary Care Provider] - - Patient Instructions - Post Discharge Activity
[2017-11-02 15:16] LABS: BASO % 1.1 % (0-2.0); EOS % 1.2 % (0-4.5); HEMATOCRIT 37.7 % (32.4-45.2); HEMOGLOBIN 12.2 GM/dL (10.7-15.3); LYMPH % 16.1 % (8-40); MCH 28.6 pg (25.7-33.7); MCHC 32.3 g/dl (32.0-36.0); MEAN CELL VOLUME 88.5 fl (80-96); MEAN PLT VOLUME 9.1 fl (7.5-11.1); MONO % 10.5 % (3.8-10.2); NEUT % 71.1 % (42.8-82.8); PLATELET COUNT 271 K/MM3 (134-434); RBC 4.27 M/mm3 (3.60-5.2); RDW 15.8 % (11.6-15.6); WHITE BLOOD COUNT 12.2 K/mm3 (4.0-10.0)
[2017-11-02 15:18] LABS: URINE APPEARANCE CLEAR; URINE BILIRUBIN NEGATIVE (NEGATIVE); URINE BLOOD 1+ (NEGATIVE); URINE COLOR LTYELLOW; URINE GLUCOSE (UA) NEGATIVE (NEGATIVE); URINE KETONE NEGATIVE (NEGATIVE); URINE LEUK ESTERASE NEGATIVE (NEGATIVE); URINE NITRITE NEGATIVE (NEGATIVE); URINE PROTEIN NEGATIVE (NEGATIVE); URINE UROBILINOGEN NEGATIVE mg/dL (0.2-1.0)
[2017-11-02 15:33] LABS: URINE MUCUS RARE
[2017-11-02 15:42] LABS: ALBUMIN 3.7 g/dl (3.4-5.0); ANION GAP 9 (8-16); BILIRUBIN,TOTAL 0.3 mg/dL (0.2-1.0); BLOOD UREA NITROGEN 19 mg/dL (7-18); CALCIUM 9.6 mg/dL (8.5-10.1); CHLORIDE 103 mmol/L (98-107); CO2 27 mmol/L (21-32); CREATININE 0.8 mg/dL (0.55-1.02); GLUCOSE,RANDOM 98 mg/dL (74-106); INR 1.05 (0.82-1.09); PROTHROMBIN TIME (PATIENT) 11.9 SEC (9.98-11.88); SGPT/ALT 15 U/L (12-78); SODIUM 139 mmol/L (136-145)
[2017-11-02 15:45] LABS: ALK PHOS 83 U/L (45-117)
[2017-11-02 15:54] LABS: POTASSIUM 4.9 mmol/L (3.5-5.1); SGOT/AST 25 U/L (15-37)
[2017-11-02] MEDS ORDERED: traMADol HCL 50 MG TABLET PO PRN (16:48)
[2017-11-02] MEDS ORDERED: SENNOSIDES 8.6MG TABLET (FP) PO PRN (16:48)
[2017-11-02] MEDS ORDERED: D5-1/2NS+20 MEQ KCL - 20 MEQ/1,000 ML INFUS.BAG IV SCH (17:00)
[2017-11-02 17:59] VITALS: BMI 24.7
--- NOTE | 2017-11-02 18:55 | CON.GI ---
Consult Consult Specialty:: GI Referred by:: Dr Ellen Carbone, Dr Negrete Reason for Consultation:: weight loss - History of Present Illness History of Present Illness: 77 y/o female with PMh of diverticulosis, last colonoscopy was in 2014, history of rectal bleeding 07/2017 was admiited because o right shoulder pain . She was noted to have poor appetite and lost 10lbs. She has failed to follow-up for outpatient colonoscopy. SHe denies any gi symptoms including dysphagia, abdominal pain, nausea and vomiting. No further rectal bleeding since July 2017. - Past Medical History Cardio/Vascular: Yes: AFIB, CAD, HTN, Hyperlipdemia Gastrointestinal: Yes: Diverticulosis, Hemorrhoids. No: Constipation Musculoskeletal: Yes: Osteoarthritis (R shoulder/injury) - Past Surgical History Past Surgical History: Yes: Colonoscopy, Oopherectomy (right), Permanent Pacemaker, Upper Endoscopy - Alcohol/Substance Use Hx Alcohol Use: No History of Substance Use: reports: None - Smoking History Smoking history: Never smoked Have you smoked in the past 12 months: No Aproximately how many cigarettes per day: 0 If you are a former smoker, when did you quit?: 25 yrs - Social History ADL: Independent History of Recent Travel: No <Alec Gamboa - Last Filed: 11/02/17 18:46> Home Medications <Alec Gamboa - Last Filed: 11/02/17 18:46> <Ngozi Macedo - Last Filed: 11/03/17 09:17> - Allergies Allergies/Adverse Reactions: Allergies Allergy/AdvReac Type Severity Reaction Status Date / Time Penicillins AdvReac Mild Itching Verified 11/02/17 14:23 - Home Medications Home Medications: Ambulatory Orders Sotalol HCl [Betapace -] 80 mg PO BID #28 tablet 06/10/14 Valsartan [Diovan] 160 mg PO DAILY #14 tablet 03/15/15 Warfarin Na [Coumadin -] 2.5 mg PO ASDIR 09/24/15 Diltiazem Cd [Cardizem Cd -] 360 mg PO DAILY #30 cap.cd.24h 08/27/16 Pravastatin Sodium [Pravachol -] 40 mg PO HS 12/30/16 Acetaminophen W/ Codeine #3 [Tylenol # 3 -] 1 tab PO Q6H PRN #12 tablet MDD 4 tabs 07/06/17 Fluticasone Prop 0.05% Nasal [Flonase -] 1 - 2 spray NS DAILY #1 spray.pump Lidocaine 5% Patch [Lidoderm -] 1 patch TP DAILY #3 patch 07/06/17 Pantoprazole Sodium [Protonix -] 40 mg PO DAILY #30 tablet.ec 08/17/17 Physical Exam-GI Vital Signs: Vital Signs Temperature 98.4 F 11/02/17 17:40 Pulse Rate 60 11/02/17 17:40 Respiratory Rate 20 11/02/17 17:40 Blood Pressure 143/62 11/02/17 17:40 O2 Sat by Pulse Oximetry (%) 98 11/02/17 17:40 Constitutional: Yes: Well Nourished, Poor Hygeine HENT: Yes: Atraumatic Neck: Yes: Supple Cardiovascular: Yes: Regular Rate and Rhythm Respiratory: Yes: CTA Bilaterally ...Palpate: Yes: Soft. No: Firm/Rigid, Guarding, Hepatomegaly, Mass, Pulsatile Mass, Splenomegaly, Tenderness Labs: CBC, BMP 11/02/17 15:00 11/02/17 15:00 INR, PTT INR 1.05 (0.82-1.09) D 11/02/17 15:00 <Alec Gamboa - Last Filed: 11/02/17 18:46> Vital Signs: Vital Signs Temperature 98.5 F 11/03/17 05:47 Pulse Rate 70 11/03/17 05:47 Respiratory Rate 18 11/03/17 05:47 Blood Pressure 129/69 11/03/17 05:47 O2 Sat by Pulse Oximetry (%) 97 11/02/17 21:00 Labs: CBC, BMP 11/03/17 07:06 INR, PTT INR 1.05 (0.82-1.09) D 11/02/17 15:00 <Ngozi Macedo - Last Filed: 11/03/17 09:17> Problem List - Problems (1) Poor appetite Assessment/Plan: etiology unclear including possible early Alzheimers, oocult mallignancy R> Megestrol 40mg daily vit B complex folic acid cea, [id number] gi w/u including colonoscopy and EGD as an outpatient Code(s): R63.0 - ANOREXIA <Alec Gamboa - Last Filed: 11/02/17 18:46>
[2017-11-02 19:24] LABS: AMYLASE 31 U/L (25-115); LIPASE 134 U/L (73-393)
[2017-11-02 19:31] LABS: N-TERMINAL BNP 390.54 pg/ml (5-450)
[2017-11-02] MEDS ORDERED: KETOROLAC TROMETHAMINE 15 MG/ML VIAL IVPB ONE (20:15)
[2017-11-02] MEDS ORDERED: PATIENT'S OWN MEDICATION (NON-FORMULARY) (Pravastatin Sodium 40 MG) PO SCH (22:00)
[2017-11-02] MEDS ORDERED: LIDOCAINE PATCH REMOVAL MC SCH (22:00)
[2017-11-02] MEDS ORDERED: ATORVASTATIN CA 10 MG TABLET (FP) PO SCH (22:00)
[2017-11-02] MEDS: SOTALOL HCL 80 MG TABLET (FP) PO SCH (22:45)
[2017-11-02] MEDS: APIXABAN 5 MG TABLET PO SCH (22:48)
[2017-11-03 07:56] LABS: ALBUMIN 3.3 g/dl (3.4-5.0); ANION GAP 10 (8-16); BILIRUBIN,TOTAL 0.3 mg/dL (0.2-1.0); BLOOD UREA NITROGEN 15 mg/dL (7-18); CALCIUM 8.1 mg/dL (8.5-10.1); CHLORIDE 105 mmol/L (98-107); CO2 25 mmol/L (21-32); CREATININE 0.6 mg/dL (0.55-1.02); GLUCOSE,RANDOM 94 mg/dL (74-106); PHOSPHOROUS 3.8 mg/dL (2.5-4.9); POTASSIUM 4.2 mmol/L (3.5-5.1); SGOT/AST 13 U/L (15-37); SGPT/ALT 12 U/L (12-78); SODIUM 140 mmol/L (136-145); TOT PROT 6.5 g/dl (6.4-8.2)
[2017-11-03 07:57] LABS: ALK PHOS 69 U/L (45-117)
[2017-11-03] MEDS ORDERED: LIDOCAINE 5% TOPICAL PATCH TP SCH (10:00)
[2017-11-03] MEDS ORDERED: VALSARTAN 160 MG TABLET (UD) PO SCH (10:00)
[2017-11-03] MEDS ORDERED: PANTOPRAZOLE 40 MG TABLET (FP) PO SCH (10:00)
[2017-11-03] MEDS ORDERED: PT OWN MED DRAWER 7, Y5N ONE (10:03)
[2017-11-03] MEDS: APIXABAN 5 MG TABLET PO SCH (10:05)
[2017-11-03] MEDS: SOTALOL HCL 80 MG TABLET (FP) PO SCH (10:05)
[2017-11-03 10:41] VITALS: BP 129/64; PULSE 61; TEMP 98.7
--- NOTE | 2017-11-03 10:48 | EKG ---
Test Reason : Blood Pressure : / mmHG Vent. Rate : 060 BPM Atrial Rate : 060 BPM P-R Int : 302 ms QRS Dur : 140 ms QT Int : 516 ms P-R-T Axes : 072 -30 122 degrees QTc Int : 516 ms Atrial-paced rhythm with prolonged AV conduction LEFT AXIS DEVIATION LEFT BUNDLE BRANCH BLOCK ABNORMAL ECG WHEN COMPARED WITH ECG OF 14-AUG-2017 12:43, NO SIGNIFICANT CHANGE WAS FOUND Confirmed by WANDA JAIN, JESSE ([id number]) on 11/03/2017 10:48:25 AM Referred By: Confirmed By:JESSE MUÑOZ MD
[2017-11-03 11:20] LABS: BASO % 0.7 % (0-2.0); EOS % 1.5 % (0-4.5); HEMATOCRIT 33.7 % (32.4-45.2); HEMOGLOBIN 11.1 GM/dL (10.7-15.3); MCH 29.2 pg (25.7-33.7); MCHC 32.9 g/dl (32.0-36.0); MEAN CELL VOLUME 88.6 fl (80-96); MEAN PLT VOLUME 9.1 fl (7.5-11.1); MONO % 9.2 % (3.8-10.2); NEUT % 64.6 % (42.8-82.8); PLATELET COUNT 216 K/MM3 (134-434); RDW 15.9 % (11.6-15.6)
--- NOTE | 2017-11-03 11:32 | HP ---
Admitting History and Physical - Primary Care Physician PCP: Ellen Carbone I (Gabe Negrtee) - Admission Chief Complaint: Weakness History of Present Illness: This is a 77 YOF with h/o Afib (on Eliquis), hemorrhoids with rectal bleeding, HLD, chronic back pain, moderate MV stenosis, osteoporosis, and mediastinal lymphadenopathy sent by her PCP Juanito Carbone because for the past month she has been having worsening decreased PO intake, fatigue, lightheadedness, and generalized weakness, as well as a 10 lb weight loss. The patient has chronic right shoulder pain and had been scheduled to have surgery with Dr. Valencia tomorrow. She stopped her Eliquis three days ago in preparation for this, but saw Dr. Carbone this morning for her fatigue and he instructed her to come into the ED for admission. The patient herself states that her decreased PO intake is d/t shoulder pain. She notes that her last colonoscopy was [address] Matta. History Source: Patient, Medical Record Limitations to Obtaining History: No Limitations - Past Medical History Cardiovascular: Yes: AFIB, CAD, HTN, Hyperlipdemia Gastrointestinal: Yes: Diverticulosis, Hemorrhoids. No: Constipation Musculoskeletal: Yes: Osteoarthritis (R shoulder/injury) - Past Surgical History Past Surgical History: Yes: Colonoscopy, Oopherectomy (right), Permanent Pacemaker, Upper Endoscopy - Smoking History Smoking history: Never smoked Have you smoked in the past 12 months: No Aproximately how many cigarettes per day: 0 If you are a former smoker, when did you quit?: 25 yrs - Alcohol/Substance Use Hx Alcohol Use: No History of Substance Use: reports: None - Social History ADL: Independent History of Recent Travel: No Home Medications - Allergies Allergies/Adverse Reactions: Allergies Allergy/AdvReac Type Severity Reaction Status Date / Time Penicillins AdvReac Mild Itching Verified 11/02/17 14:23 - Home Medications Home Medications: Ambulatory Orders Sotalol HCl [Betapace -] 80 mg PO BID #28 tablet 06/10/14 Valsartan [Diovan] 160 mg PO DAILY #14 tablet 03/15/15 Diltiazem Cd [Cardizem Cd -] 360 mg PO DAILY #30 cap.cd.24h 08/27/16 Pravastatin Sodium [Pravachol -] 40 mg PO HS 12/30/16 Acetaminophen W/ Codeine #3 [Tylenol # 3 -] 1 tab PO Q6H PRN #12 tablet MDD 4 tabs 07/06/17 Fluticasone Prop 0.05% Nasal [Flonase -] 1 - 2 spray NS DAILY #1 spray.pump Lidocaine 5% Patch [Lidoderm -] 1 patch TP DAILY #3 patch 07/06/17 Pantoprazole Sodium [Protonix -] 40 mg PO DAILY #30 tablet.ec 08/17/17 Apixaban [Eliquis -] 5 mg PO BID tablet 11/03/17 Review of Systems - Review of Systems Constitutional: reports: Unintentional Wgt. Loss Eyes: reports: No Symptoms HENT: reports: No Symptoms Neck: reports: No Symptoms Cardiovascular: reports: No Symptoms Respiratory: reports: No Symptoms Gastrointestinal: reports: No Symptoms Genitourinary: reports: No Symptoms Breasts: reports: No Symptoms Reported Musculoskeletal: reports: Other (Left shoulder pain) Integumentary: reports: No Symptoms Neurological: reports: No Symptoms Endocrine: reports: No Symptoms Hematology/Lymphatic: reports: No Symptoms Psychiatric: reports: No Symptoms Physical Examination Vital Signs: Vital Signs Temperature 98.7 F 11/03/17 09:00 Pulse Rate 61 11/03/17 09:00 Respiratory Rate 18 11/03/17 09:00 Blood Pressure 129/64 11/03/17 09:00 O2 Sat by Pulse Oximetry (%) 95 11/03/17 09:00 Constitutional: Yes: Well Nourished, No Distress, Calm Cardiovascular: Yes: Pulse Irregular Respiratory: Yes: Regular Gastrointestinal: Yes: Normal Bowel Sounds, Soft Musculoskeletal: Yes: Other (right shoulder pain) Extremities: Yes: WNL Neurological: Yes: Alert, Oriented Psychiatric: Yes: Alert, Oriented Labs: CBC, BMP 11/03/17 07:06 11/03/17 07:06 Problem List - Problems (1) Unintentional weight loss Assessment/Plan: seen by GI Colonoscopy outpatient with GI- Dr Bee Ortega antigen pending Code(s): R63.4 - ABNORMAL WEIGHT LOSS (2) Atrial fibrillation, rapid Assessment/Plan: -chronic -on Eliquis Code(s): I48.91 - UNSPECIFIED ATRIAL FIBRILLATION (3) Leukocytosis Assessment/Plan: -likely inflammatory Code(s): D72.829 - ELEVATED WHITE BLOOD CELL COUNT, UNSPECIFIED (4) Shoulder pain, right Assessment/Plan: -chronic pain 2/2 to OA -had surgery scheduled with Dr Valencia -F/U with Dr Valencia outpatient Code(s): M25.511 - PAIN IN RIGHT SHOULDER Qualifiers: Chronicity: chronic Qualified Code(s): M25.511 - Pain in right shoulder; G89.29 - Other chronic pain; G89.29 - Other chronic pain Assessment/Plan see problem list
--- NOTE | 2017-11-03 11:38 | DS ---
Physical Examination Vital Signs: Vital Signs Temperature 98.7 F 11/03/17 09:00 Pulse Rate 61 11/03/17 09:00 Respiratory Rate 18 11/03/17 09:00 Blood Pressure 129/64 11/03/17 09:00 O2 Sat by Pulse Oximetry (%) 95 11/03/17 09:00 Constitutional: Yes: Well Nourished, No Distress, Calm Cardiovascular: Yes: Pulse Irregular Respiratory: Yes: Regular Gastrointestinal: Yes: Normal Bowel Sounds, Soft Musculoskeletal: Yes: Other (Right shoulder pain) Extremities: Yes: WNL Edema: No Peripheral Pulses WNL: Yes Neurological: Yes: Alert, Oriented Psychiatric: Yes: Alert, Oriented Labs: CBC, BMP 11/03/17 07:06 11/03/17 07:06 Discharge Summary Reason For Visit: HEMATURIA,FAIL TO THRIVE,LEUKOCYTOSIS,R SHOULD EMMA Current Active Problems Failure to thrive (Acute) Hematuria (Acute) Leukocytosis (Acute) Poor appetite (Acute) Shoulder pain (Acute) Unintentional weight loss (Acute) Hospital Course: This is a 77 YOF with h/o Afib (on Eliquis), hemorrhoids with rectal bleeding, HLD, chronic back pain, moderate MV stenosis, osteoporosis, and mediastinal lymphadenopathy sent by her PCP Juanito Carbone because for the past month she has been having worsening decreased PO intake, fatigue, lightheadedness, and generalized weakness, as well as a 10 lb weight loss. The patient has chronic right shoulder pain and had been scheduled to have surgery with Dr. Valencia tomorrow. She stopped her Eliquis three days ago in preparation for this, but saw Dr. Carbone this morning for her fatigue and he instructed her to come into the ED for admission. The patient herself states that her decreased PO intake is d/t shoulder pain. She notes that her last colonoscopy was [address] Matta. Condition: Stable - Instructions Diet, Activity, Other Instructions: -Follow up with GI- Alec Sun within next 2 weeks -Follow up with Dr Bradley Valencia within 1 week -Follow up with PCP within 1 week Referrals: Дмитрий Hughes [Primary Care Provider] - Alec Gamboa MD [Staff Physician] - Bradley Valencia MD [Staff Physician] - Disposition: HOME - Home Medications Comprehensive Discharge Medication List: Ambulatory Orders Sotalol HCl [Betapace -] 80 mg PO BID #28 tablet 06/10/14 Valsartan [Diovan] 160 mg PO DAILY #14 tablet 03/15/15 Diltiazem Cd [Cardizem Cd -] 360 mg PO DAILY #30 cap.cd.24h 08/27/16 Pravastatin Sodium [Pravachol -] 40 mg PO HS 12/30/16 Acetaminophen W/ Codeine #3 [Tylenol # 3 -] 1 tab PO Q6H PRN #12 tablet MDD 4 tabs 07/06/17 Fluticasone Prop 0.05% Nasal [Flonase -] 1 - 2 spray NS DAILY #1 spray.pump Lidocaine 5% Patch [Lidoderm -] 1 patch TP DAILY #3 patch 07/06/17 Pantoprazole Sodium [Protonix -] 40 mg PO DAILY #30 tablet.ec 08/17/17 Apixaban [Eliquis -] 5 mg PO BID tablet 11/03/17
--- NOTE | 2017-11-03 11:47 | CONSULT ---
Consult - text type - Consultation Consultation Note: Patient initially scheduled for DR Valencia for surgery on her right shoulder today. The surgery was cancelled by PMD secondary to medical concerns. Currently she has no acute orthopedic issues. We will reschedule her surgery once medically optimized. DC to home when medically ok
[2017-11-04 08:12] LABS: CARCINOEMBRYONIC ANTIGEN 1.9 ng/mL (0.0-4.7)
== END 2017-11-03 13:30 | disposition home or self-care (01) | DRG 641 ==
LOC: JER 14:20 → JERBED 15:58 → J6S 17:30
PROVIDERS: ADMIT Family Medicine; ATTEND Family Medicine
DX: R62.7 Adult failure to thrive (principal); I48.91 Unspecified atrial fibrillation; Z79.01 Long term (current) use of anticoagulants; E78.5 Hyperlipidemia, unspecified; M54.9 Dorsalgia, unspecified; I34.2 Nonrheumatic mitral (valve) stenosis; M81.0 Age-related osteoporosis without current pathological fracture; I25.10 Atherosclerotic heart disease of native coronary artery without angina pectoris; Z95.1 Presence of aortocoronary bypass graft; I44.7 Left bundle-branch block, unspecified; R59.0 Localized enlarged lymph nodes; Z88.0 Allergy status to penicillin; M25.511 Pain in right shoulder; R31.9 Hematuria, unspecified; Z95.0 Presence of cardiac pacemaker; D72.829 Elevated white blood cell count, unspecified; R63.4 Abnormal weight loss; R63.0 Anorexia
CPT/HCPCS: 36415; 70450-TC; 71046-TC-FY; 80053; 81003; 81015; 82150; 82378; 82550; 83036; 83690; 83735; 83880; 84100; 84439; 84443; 84484; 85025; 85610; 86301; 86304; 93005; 93010; 99285-25

== ENCOUNTER 2017-11-25 06:08 | Day surgery (SDC) | payer OTHER ==
[2017-11-24 11:29] VITALS: BMI 25.4
[2017-11-25] MEDS ORDERED: ROPIVACAINE HCL 0.5% 30ML VIAL ONE (07:13)
[2017-11-25] MEDS ORDERED: MIDAZOLAM HCL 2 MG/2 ML SINGLE DOSE VIAL ONE ×2 (07:14)
--- NOTE | 2017-11-25 08:05 | HP ---
Satellite H - Chief Complaint Chief Complaint: right shoulder pain, weakness, decreased ROM History of Present Illness: right shoulder impingement, possible RTC tear History Source: Patient Limitations to Obtaining History: No Limitations - Past Medical History Allergies/Adverse Reactions: Allergies Allergy/AdvReac Type Severity Reaction Status Date / Time Penicillins AdvReac Mild Itching Verified 11/02/17 14:23 Cardiovascular: Yes: AFIB, CAD, HTN, Hyperlipdemia Gastrointestinal: Yes: Diverticulosis, Hemorrhoids. No: Constipation Musculoskeletal: Yes: Osteoarthritis (R shoulder/injury) - Current Medications Current Medications: Home Medications Medication Instructions Recorded Sotalol HCl [Betapace -] 80 mg PO BID #28 tablet 06/10/14 Valsartan [Diovan] 160 mg PO DAILY #14 tablet 03/15/15 Diltiazem Cd [Cardizem Cd -] 360 mg PO DAILY #30 cap.cd.24h 08/27/16 Pravastatin Sodium [Pravachol -] 40 mg PO HS 12/30/16 Apixaban [Eliquis -] 5 mg PO BID tablet 11/03/17 Satellite Physical Exam - Physical Examination Vital Signs: Vital Signs Period Temp Pulse Resp BP Sys/Decker Pulse Ox Last 24 Hr 97.9 F-97.9 F 61-61 16-16 141-141/64-64 97 General Appearance: Well Nourished ENT: Clear Lung: Clear to auscultation Heart: Regular rate & rhythm Breasts: Soft Abdomen: Soft Extremities: No edema Satellite Impression/Plan - Impression/Plan Impression: right shoulder impingement syndrome, possible RTC tear Operative Procedure: right shoulder arthroscopy, decompression, possible RTC repair, manipulation Date to be Performed: 11/25/17
[2017-11-25] MEDS ORDERED: PROPOFOL 20 ML ONE ×4 (08:22)
[2017-11-25] MEDS ORDERED: CLINDAMYCIN 600 MG PREMIX BAG IVPB ONE (08:30)
--- NOTE | 2017-11-25 09:36 | OP ---
Operative Note - Note: Operative Date: 11/25/17 Pre-Operative Diagnosis: right shoulder subacromial impingement, ACJ OA Operation: right shoulder arthroscopy, decompression, distal clavicle excision Post-Operative Diagnosis: Same as Pre-op Surgeon: Bradley Valencia Anesthesiologist/COORDINATING PRODUCER: Susy Rodríguez Anesthesia: Local, MAC Specimens Removed: shavings Estimated Blood Loss (mls): 50 Drains, Volume Out (mls): 0 Blood Volume Replaced (mls): 0 Fluid Volume Replaced (mls): 700 Operative Report Dictated: Yes
[2017-11-25] MEDS ORDERED: ONDANSETRON 4 MG/2 ML VIAL IVPUSH PRN (09:54)
[2017-11-25] MEDS ORDERED: oxyCODONE HCL 5 MG TABLET PO PRN (09:54)
--- NOTE | 2017-11-25 10:01 | OP ---
DATE OF OPERATION: 11/25/2017 PREOPERATIVE DIAGNOSES: Right shoulder impingement syndrome and acromioclavicular joint arthritis and partial rotator cuff tear. POSTOPERATIVE DIAGNOSES: Right shoulder impingement syndrome and acromioclavicular joint arthritis and partial rotator cuff tear. PROCEDURE: Right shoulder arthroscopy, subacromial decompression, and distal clavicle excision. SURGEON: Bradley Vasquez MD ASSISTANTS: None. ANESTHESIA: A right interscalene block with MAC anesthesia. DRAINS: None. COMPLICATIONS: None. BLOOD LOSS: 50 mL BLOOD GIVEN: None. FLUID REPLACEMENT: 700 mL This patient is a 77-year-old female with right shoulder pain, decreased range of motion, decreased function, and weakness. After understanding the potential risks, complications, alternatives, and benefits of surgery versus nonsurgical treatment, the patient elected to undergo this procedure. She and her family understand that she likely will not have complete relief of her symptoms, will continue to have weakness, decreased range of motion which will require physical therapy. The patient was brought to the operating room, peripheral IV placed and IV sedation given. Next, 600 mg of clindamycin were given. A right interscalene block was performed. MAC anesthesia was induced. Patient has a pacemaker. She was placed into the beach chair position with ample padding throughout. The right upper extremity was then prepped and draped in sterile fashion. The bony landmarks were marked out with a marking pen. A posterior portal was established with a number-15 scalpel blade. Trocar and arthroscope were then introduced into the glenohumeral joint, and a diagnostic glenohumeral arthroscopy was performed. 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 The labrum was quite frayed as was the biceps tendon. The undersurface of the rotator cuff was frayed, but there was no point of complete rotator cuff tear, and as I directly visualized the undersurface of the rotator cuff, moving the arm through full range of motion, there was definitely a significant portion that was attached and intact. Next, our attention was turned to the subacromial space. The patient had a lot of inflammatory bursitis. A lateral portal was established under direct visualization using a spinal needle and number-15 scalpel blade, and a green cannula was introduced in the subacromial space. Using the ArthroCare wand, I did an extensive debridement/soft tissue bursectomy. This revealed a large subacromial spur and a moderate-size subclavicular spur. I was able to visualize the top of the rotator cuff, and this all seemed to be intact, directly visualized it, through a full range of motion of the right upper extremity. Therefore, no rotator cuff repair was possible or necessary. After the extensive debridement, with the ArthroCare wand, I did a bony subacromial decompression using the 5.5-mm oval sheela. I also took down the infraclavicular bony spur. I then fine tuned it in reverse, and then, using the shaver, to fine tune it further and remove all debris. Again, I looked at the top surface of the rotator cuff, and again, there was nothing to repair; it was intact. The area was copiously irrigated and washed out. All instrumentation and saline removed. The arthroscopy portals were closed with 3-0 nylon sutures. The area was then washed and dried, covered with an Aquacel dressing. The patient was put into a sling, brought down out of the beach chair position. Total operative time was about 40 minutes. There were no complications during the case. The patient tolerated the procedure quite well and was brought to the ambulatory recovery room in stable condition. BRADLEY VASQUEZ M.D. [id number]
[2017-11-25 10:45] VITALS: TEMP 97.6
[2017-11-25] MEDS ORDERED: LACTATED RINGERS SOLUTION 1,000 ML IV SCH (11:00)
[2017-11-25 12:48] VITALS: BP 128/59; PULSE 62
--- NOTE | 2017-11-26 13:54 | PATH ---
Surgical Pathology Report Patient Name: GEE JEROME Med. Rec. #: [id number] /Age/Gender: 1940 (Age: 77) / F Account: [id number] Location: [facility] Taken: 11/25/2017 Received: 11/25/2017 Reported: 11/26/2017 Physicians: Bradley Valencia M.D. Specimen(s) Received RIGHT SHOULDER SHAVINGS Clinical History Right shoulder impingement Final Diagnosis RIGHT SHOULDER, ARTHROSCOPIC SHAVING: PORTIONS OF SYNOVIUM, CARTILAGE, SKELETAL MUSCLE AND BONE CONSISTENT WITH ARTHROSCOPIC SHAVINGS. Electronically Signed Дмитрий Riojas M.D. Gross Description Received in formalin, labeled "right shoulder shavings," is a 4.0 x 3.3 x 0.4 cm. aggregate of elena-yellow soft tissue fragments. A software sales representative portion is submitted in one cassette. /11/25/2017 saudi11/25/2017
== END 2017-11-25 12:25 | disposition home or self-care (01) ==
LOC: JASU-SURG 06:08
PROVIDERS: ATTEND Orthopaedic Surgery
PROC: 0PB94ZZ Excision of Right Clavicle, Percutaneous Endoscopic Approach (ICD-10-PCS; 2017-11-25)
PROC: 0RBJ4ZZ Excision of Right Shoulder Joint, Percutaneous Endoscopic Approach (ICD-10-PCS; principal; 2017-11-25 08:00)
DX: M75.41 Impingement syndrome of right shoulder (principal); M19.011 Primary osteoarthritis, right shoulder; M75.101 Unspecified rotator cuff tear or rupture of right shoulder, not specified as traumatic
CPT/HCPCS: 94760

== ENCOUNTER 2017-12-07 13:53 | Emergency (ER) | payer OTHER ==
[2017-12-07 14:04] VITALS: BMI 27.9
[2017-12-07] MEDS ORDERED: ONDANSETRON 4 MG/2 ML VIAL IVPB ONE (15:10)
[2017-12-07] MEDS ORDERED: SODIUM CHLORIDE 1,000 ML IV STA (15:10)
[2017-12-07] MEDS ORDERED: FAMOTIDINE 20 MG/50 ML IVPB 20 MG/50 ML MG IVPB ONE ×2 (15:15→15:35)
[2017-12-07 15:26] LABS: BASO % 0.5 % (0-2.0); EOS % 1.4 % (0-4.5); HEMATOCRIT 34.4 % (32.4-45.2); HEMOGLOBIN 11.3 GM/dL (10.7-15.3); LYMPH % 16.7 % (8-40); MCH 28.9 pg (25.7-33.7); MCHC 32.9 g/dl (32.0-36.0); MEAN CELL VOLUME 87.7 fl (80-96); MEAN PLT VOLUME 9.2 fl (7.5-11.1); MONO % 8.7 % (3.8-10.2); NEUT % 72.7 % (42.8-82.8); PLATELET COUNT 286 K/MM3 (134-434); RBC 3.92 M/mm3 (3.60-5.2); RDW 16.3 % (11.6-15.6); WHITE BLOOD COUNT 10.3 K/mm3 (4.0-10.0)
[2017-12-07] MEDS ORDERED: ONDANSETRON 4 MG/2 ML VIAL ONE (15:34)
[2017-12-07 15:50] LABS: ALBUMIN 3.5 g/dl (3.4-5.0); ALK PHOS 79 U/L (45-117); ANION GAP 8 (8-16); BILIRUBIN,TOTAL 0.2 mg/dL (0.2-1.0); BLOOD UREA NITROGEN 13 mg/dL (7-18); CHLORIDE 108 mmol/L (98-107); CO2 24 mmol/L (21-32); CREATININE 0.6 mg/dL (0.55-1.02); GLUCOSE,RANDOM 91 mg/dL (74-106); LIPASE 129 U/L (73-393); SGPT/ALT 18 U/L (12-78); SODIUM 140 mmol/L (136-145); TOT PROT 7.2 g/dl (6.4-8.2)
[2017-12-07 15:56] LABS: POTASSIUM 4.5 mmol/L (3.5-5.1); SGOT/AST 26 U/L (15-37)
[2017-12-07 16:10] LABS: URINE APPEARANCE CLEAR; URINE BILIRUBIN NEGATIVE (<2.0 mg/dL); URINE BLOOD 2+ (NEGATIVE); URINE COLOR LTYELLOW; URINE GLUCOSE (UA) NEGATIVE (NEGATIVE); URINE KETONE NEGATIVE (NEGATIVE); URINE LEUK ESTERASE NEGATIVE (NEGATIVE); URINE NITRITE NEGATIVE (NEGATIVE); URINE PROTEIN NEGATIVE (NEGATIVE); URINE UROBILINOGEN NEGATIVE mg/dL (0.2-1.0)
[2017-12-07 16:37] LABS: EPI CELLS RARE /HPF (FEW); URINE MUCUS RARE
--- NOTE | 2017-12-07 16:41 | EKG ---
Test Reason : Blood Pressure : / mmHG Vent. Rate : 060 BPM Atrial Rate : 060 BPM P-R Int : 274 ms QRS Dur : 136 ms QT Int : 518 ms P-R-T Axes : 082 -27 092 degrees QTc Int : 518 ms Atrial-paced rhythm with prolonged AV conduction LEFT BUNDLE BRANCH BLOCK ABNORMAL ECG WHEN COMPARED WITH ECG OF 02-NOV-2017 16:01, T WAVE INVERSION MORE EVIDENT IN LATERAL LEADS Confirmed by MD Stephane, Linus ([id number]) on 12/07/2017 4:40:55 PM Referred By: Confirmed By:Linus Calderón MD
--- NOTE | 2017-12-07 17:50 | PDOC ---
History of Present Illness - General Chief Complaint: Pain, Acute Stated Complaint: VOMITING Time Seen by Provider: 12/07/17 14:21 - History of Present Illness Initial Comments: 12/07/17 17:50 The patient is a 77 year old female with past medical history of hyperlipidemia , diverticulitis, hemorrhoids, gastritis, and atrial fibrillation who presents to the ED for complaints of abdominal pain that began a few days ago. She complains of a diffuse cramping pain but also a burning pain in her epigastrium that is worsened with lying down and with food. She reports nausea the past few days but experienced one episode of vomiting today after eating soup. She denies any fevers, chills, diarrhea, constipation, cough, SOB, CP, or urinary symptoms. Pt is followed by Dr. Gamboa, has had prior EGDs that showed gastritis. She was previously on nexium but admits that she stopped taking it on her own. Past History - Past Medical History Allergies/Adverse Reactions: Allergies Allergy/AdvReac Type Severity Reaction Status Date / Time Penicillins AdvReac Mild Itching Verified 12/07/17 13:59 Home Medications: Ambulatory Orders Sotalol HCl [Betapace -] 80 mg PO BID #28 tablet 06/10/14 Valsartan [Diovan] 160 mg PO DAILY #14 tablet 03/15/15 Diltiazem Cd [Cardizem Cd -] 360 mg PO DAILY #30 cap.cd.24h 08/27/16 Pravastatin Sodium [Pravachol -] 40 mg PO HS 12/30/16 Apixaban [Eliquis -] 5 mg PO BID tablet 11/03/17 Hydrocodone/Acetaminophen [Hydrocodone-Acetamin 5-325 mg] 1 - 2 tab PO TID PRN # 40 tablet MDD 6 11/25/17 Esomeprazole Magnesium [Nexium 24Hr] 20 mg PO DAILY #30 capsule. 12/07/17 Anemia: No Asthma: No Cancer: Yes (SKIN CA- EARLOBE) Cardiac Disorders: Yes (AFIB,) CVA: No COPD: No CHF: No Dementia: No Diabetes: No GI Disorders: Yes (GASTRITIS, diverticlitis) Disorders: No HTN: Yes Hypercholesterolemia: Yes Liver Disease: (FATTY LIVER) Seizures: No Thyroid Disease: No - Surgical History Abdominal Surgery: No Appendectomy: No Cardiac Surgery: Yes (CABG) Cholecystectomy: No Lung Surgery: No Neurologic Surgery: No Orthopedic Surgery: Yes - Family Disease History Family Disease History: Heart Disease: Father - Immunization History Immunization Up to Date: Yes - Suicide/Smoking/Psychosocial Hx Smoking Status: Yes Smoking History: Former smoker Have you smoked in the past 12 months: Yes Number of Cigarettes Smoked Daily: 0 If you are a former smoker, when did you quit?: 25 yrs Information on smoking cessation initiated: No Hx Alcohol Use: No Drug/Substance Use Hx: No Substance Use Type: None Hx Substance Use Treatment: No Review of Systems - Review of Systems Comments:: 12/07/17 17:54 "GENERAL/CONSTITUTIONAL: No fever or chills. No weakness. HEAD, EYES, EARS, NOSE AND THROAT: No change in vision. No ear pain or discharge. No sore throat. CARDIOVASCULAR: No chest pain or shortness of breath. RESPIRATORY: No cough, wheezing, or hemoptysis. GASTROINTESTINAL:(+) nausea, vomiting, abdominal pain. No diarrhea or constipation. GENITOURINARY: No dysuria, frequency, or change in urination. MUSCULOSKELETAL: No joint or muscle swelling or pain. No neck or back pain. SKIN: No rash NEUROLOGIC: No headache, vertigo, loss of consciousness, or change in strength/ sensation. ENDOCRINE: No increased thirst. No abnormal weight change. HEMATOLOGIC/LYMPHATIC: No anemia, easy bleeding, or history of blood clots. ALLERGIC/IMMUNOLOGIC: No hives or skin allergy. " *Physical Exam - Vital Signs Last Vital Signs Temp Pulse Resp BP Pulse Ox 97.7 F 67 19 120/59 98 12/07/17 14:00 12/07/17 14:00 12/07/17 14:00 12/07/17 14:00 12/07/17 14:00 - Physical Exam Comments: 12/07/17 17:55 "GENERAL: Awake, alert, and fully oriented, in no acute distress. HEAD: No signs of trauma EYES: PERRLA, EOMI, sclera anicteric, conjunctiva clear ENT: Auricles normal inspection, hearing grossly normal, nares patent, oropharynx clear without exudates. Moist mucosa NECK: Nontender, no stepoffs, Normal ROM, supple, no lymphadenopathy, JVD, or masses LUNGS: Breath sounds equal, clear to auscultation bilaterally. No wheezes, and no crackles HEART: Regular rate and rhythm, normal S1 and S2, no murmurs, rubs or gallops ABDOMEN: + epigastric TTP, normoactive bowel sounds. No guarding, no rebound. No masses EXTREMITIES: Normal range of motion, no edema. No clubbing or cyanosis. No cords, erythema, or tenderness NEUROLOGICAL: Cranial nerves II through XII intact. 5/5 strength and sensation in all extremities, Normal speech, normal gait, normal cerebellar function SKIN: Warm, Dry, normal turgor, no rashes or lesions noted. " Heart Score/ECG Review - History History: Slightly suspicious - Electrocardiogram EKG: Normal - Age Age: >/= 65 - Risk Factors Risk Factors Heart Score: Yes Hx Hypercholesterolemia, Yes Hx Obesity - Troponin Troponin: </= normal limit - ECG Impressions Comment:: 12/07/17 17:57 AV paced, rate 60, no PHILIP/STDs, unchanged since prior ED Treatment Course - LABORATORY CBC & Chemistry Diagram: 12/07/17 15:15 12/07/17 15:15 - ADDITIONAL ORDERS Additional order review: Laboratory Results 12/07/17 12/07/17 12/07/17 15:40 15:40 15:15 Sodium 140 Potassium 4.5 Chloride 108 H Carbon Dioxide 24 Anion Gap 8 BUN 13 Creatinine 0.6 Creat Clearance w eGFR > 60 Random Glucose 91 Lactic Acid 1.3 Calcium 9.0 Total Bilirubin 0.2 D AST 26 ALT 18 Alkaline Phosphatase 79 Creatine Kinase Troponin I Total Protein 7.2 Albumin 3.5 Lipase 129 Urine Color Ltyellow Urine Appearance Clear Urine pH 7.0 Ur Specific [place] 1.006 Urine Protein Negative Urine Glucose (UA) Negative Urine Ketones Negative Urine Blood 2+ H Urine Nitrite Negative Urine Bilirubin Negative Urine Urobilinogen Negative Ur Leukocyte Esterase Negative Urine WBC (Auto) <1 Urine RBC (Auto) 3 Ur Epithelial Cells Rare Urine Mucus Rare 12/07/17 15:15 Sodium Potassium Chloride Carbon Dioxide Anion Gap BUN Creatinine Creat Clearance w eGFR Random Glucose Lactic Acid Calcium Total Bilirubin AST ALT Alkaline Phosphatase Creatine Kinase 44 Troponin I < 0.02 Total Protein Albumin Lipase Urine Color Urine Appearance Urine pH Ur Specific [place] Urine Protein Urine Glucose (UA) Urine Ketones Urine Blood Urine Nitrite Urine Bilirubin Urine Urobilinogen Ur Leukocyte Esterase Urine WBC (Auto) Urine RBC (Auto) Ur Epithelial Cells Urine Mucus 12/07/17 15:15 RBC 3.92 MCV 87.7 MCHC 32.9 RDW 16.3 H MPV 9.2 Neutrophils % 72.7 Lymphocytes % 16.7 D Monocytes % 8.7 Eosinophils % 1.4 Basophils % 0.5 - RADIOLOGY Radiology Studies Ordered: Category Date Time Status ABDOMEN & PELVIS CT WITH CONTR [CT] Stat CT Scan 12/07/17 15:10 Ordered - Medications Given in the ED: ED Medications Discontinued Medications Generic Name Dose Route Start Last Admin Trade Name Abdiel PRN Reason Stop Dose Admin Famotidine/Sodium Chloride 20 mg in 50 mls @ 100 mls/hr 12/07/17 15:15 15:15 Pepcid 20 Mg Premixed Ivpb - IVPB 12/07/17 15:44 100 mls/hr ONCE ONE Administration Sodium Chloride 1,000 mls @ 1,000 mls/hr 12/07/17 15:10 12/07/17 15:35 Normal Saline - IV 12/07/17 16:09 1,000 mls/hr ASDIR STA Administration Ondansetron HCl 4 mg 12/07/17 15:10 12/07/17 15:20 Zofran Injection IVPB 12/07/17 15:11 4 mg ONCE ONE Administration Medical Decision Making - Medical Decision Making 12/07/17 17:58 77 F with epigastric pain, N+V. Exam and history consistent with pt's h/o gastritis. Pt with no CP/SOB but will obtain trop to r/o ACS. Pt with no lower abdominal tenderness to suggest appy/colitis/diverticulitis. Negative alcaraz's on exam. - Labs, lipase, trop - IVF, GI cocktail - Reassess 12/07/17 18:06 Labs wnl Pt reassessed s/p GI meds - now completely asymptomatic. Pt tolerating PO without nausea/vomiting. Abdominal exam completely benign at this time. Pt is well appearing, with normal vitals. Clinically stable for DC at this time. I discussed the physical exam findings, ancillary test results and final diagnoses with the patient. I answered all of the patient's questions. The patient was satisfied with the care received and felt comfortable with the discharge plan and treatment plan. The patient agrees to follow up with the primary care physician within 24-72 hours. *DC/Admit/Observation/Transfer Diagnosis at time of Disposition: Gastritis - Discharge Dispostion Disposition: HOME - Referrals Referrals: Ellen Carbone MD [Primary Care Provider] - Alec Gamboa MD [Staff Physician] - - Patient Instructions Printed Discharge Instructions: DI for Gastritis Additional Instructions: You must follow up with Dr. Gamboa within 1 week for an endoscopy. You likely have gastritis or ulcers in your stomach. Take the nexium as prescribed every day to prevent worsening pain. If you experience severe pain, nausea, vomiting, fevers, or any other concerning symptoms, return to the ER immediately. Print Language: MACEDONIAN - Post Discharge Activity - Attestations Physician Attestion: 12/07/17 18:09 I, Dr. Cesar Tobin MD, attest that this document has been prepared under my direction and personally reviewed by me in its entirety. I further attest, that it accurately reflects all work, treatment, procedures and medical decision -making performed by me.
[2017-12-07 18:13] VITALS: BP 123/71; PULSE 59; TEMP 98
== END 2017-12-07 18:31 | disposition home or self-care (01) ==
LOC: JER 13:53
PROC: 3E033GC Introduction of Other Therapeutic Substance into Peripheral Vein, Percutaneous Approach (ICD-10-PCS; principal; 2017-12-07)
PROC: 3E033GC Introduction of Other Therapeutic Substance into Peripheral Vein, Percutaneous Approach (ICD-10-PCS; 2017-12-07)
PROC: 3E033GC Introduction of Other Therapeutic Substance into Peripheral Vein, Percutaneous Approach (ICD-10-PCS; 2017-12-07)
DX: K29.70 Gastritis, unspecified, without bleeding (principal); Z87.19 Personal history of other diseases of the digestive system; Z85.828 Personal history of other malignant neoplasm of skin; Z87.891 Personal history of nicotine dependence
CPT/HCPCS: 36415; 80053; 81003; 81015; 82550; 83605; 83690; 84484; 85025; 93005; 93010; 96361; 96365; 96375; 99283-25; J7030

== ENCOUNTER 2017-12-25 15:23 | Emergency (ER) | payer OTHER ==
[2017-12-25 15:50] VITALS: BP 124/65; PULSE 62; TEMP 98.6; BMI 24.7
--- NOTE | 2017-12-25 16:24 | PDOC ---
Attending Attestation - HPI HPI: 12/25/17 17:31 The patient is a 77 year old female, with a significant past medical history of Skin CA (earlobe), CAD, diverticulitis, HTN, GERD, Hemrrhoids, hypercholesterolemia, afib (on coumadin), HLD, who presents to the emergency department complaining of abdominal pain and nausea for the past 2 weeks. She reports that she saw a GI (Dr. Alec Gamboa) who prescribed her medicine, which has helped relieve some of the pain. She describes the abdominal pain as ranging from mild to moderate, without radiation. She reports that eating exacerbates her pain which has caused her to have decreased PO intake. She notes that she has noticed some blood/dark stools which she mentioned to Dr. Gamboa when she last saw him recently. She reports that her next appointment with Dr. Gamboa is February 04 of this year and has a scheduled endoscopy coming up , as per patient. The patient denies chest pain, shortness of breath, headache or dizziness. Denies fever, chills, vomiting, diarrhea and constipation. Denies dysuria, frequency, urgency and hematuria. Allergies: Penicillins Past surgical history: Pacemaker (2010) Social history: Nonsmoker. Denies EtOH use and recreational drug use. Primary Care Physician: - Physicial Exam PE: 12/25/17 17:31 GENERAL: Awake, alert, and fully oriented, in no acute distress HEAD: No signs of trauma, normocephalic, atraumatic EYES: PERRLA, EOMI, sclera anicteric, conjunctiva clear ENT: Auricles normal inspection, hearing grossly normal, nares patent, oropharynx clear without exudates. Moist mucosa NECK: Normal ROM, supple, no lymphadenopathy, JVD, or masses LUNGS: No distress, speaks full sentences, clear to auscultation bilaterally HEART: Regular rate and rhythm, normal S1 and S2, no murmurs, rubs or gallops, peripheral pulses normal and equal bilaterally. ABDOMEN: (+) Epigastric tenderness. Soft, normoactive bowel sounds. No guarding , no rebound. No masses EXTREMITIES : Normal inspection, Normal range of motion, no edema. No clubbing or cyanosis. NEUROLOGICAL: Cranial nerves II through XII grossly intact. Normal speech, normal gait, no focal sensorimotor deficits SKIN: Warm, Dry, normal turgor, no rashes or lesions noted <Franc Azevedo - Last Filed: 12/25/17 17:31> - Medical Decision Making 12/25/17 17:43 Pt presents to the ED complaining of persistent epigastric discomfort despite reglan and protonix prescribed by Dr. Gamboa. Family is and patient are also concerned because she has had a 12 pound unintentional weight loss. Abdomen is non tender. PAtient has colonoscopy appointment in January. Also complaining of intermittent blood streaked stool. Will labs, likely discharge home if labs are within normal limits. Will treat persistent nausea with zofran. <Debra Dugan - Last Filed: 12/25/17 17:51>
[2017-12-25] MEDS ORDERED: FAMOTIDINE IV 20 MG/12 ML VIAL IVPUSH ONE (17:10)
[2017-12-25] MEDS ORDERED: FAMOTIDINE 20 MG/50 ML IVPB 20 MG/50 ML MG IVPB ONE (18:00)
--- NOTE | 2017-12-25 18:16 | PDOC ---
History of Present Illness - General Chief Complaint: Pain, Acute Stated Complaint: ABDOMINAL PAIN Time Seen by Provider: 12/25/17 16:22 History Source: Patient Exam Limitations: No Limitations - History of Present Illness Initial Comments: 12/25/17 18:16 77F with pmh of Skin CA (earlobe), CAD, diverticulitis, HTN, GERD, Hemorrhoids, hypercholesterolemia, afib (on coumadin), HLD, presents to the ED for continuing complaint of abdominal pain dyspepsia and nausea for the past [address] Gamboa, environmental professional Mere and pantoprazole which has helped relieve some of the pain. She describes the abdominal pain as ranging from mild to moderate, without radiation. She reports that eating exacerbates her pain in addition to have a decreased appetite, resulting in weight loss. She notes that she has noticed some dark bloody stool which she mentioned to Dr. Gamboa when she last saw him recently and is scheduled to get a colonoscopy/ endoscopy on February 04. Past History - Past Medical History Allergies/Adverse Reactions: Allergies Allergy/AdvReac Type Severity Reaction Status Date / Time Penicillins AdvReac Mild Itching Verified 12/25/17 15:45 Home Medications: Ambulatory Orders Sotalol HCl [Betapace -] 80 mg PO BID #28 tablet 06/10/14 Valsartan [Diovan] 160 mg PO DAILY #14 tablet 03/15/15 Diltiazem Cd [Cardizem Cd -] 360 mg PO DAILY #30 cap.cd.24h 08/27/16 Pravastatin Sodium [Pravachol -] 40 mg PO HS 12/30/16 Apixaban [Eliquis -] 5 mg PO BID tablet 11/03/17 Hydrocodone/Acetaminophen [Hydrocodone-Acetamin 5-325 mg] 1 - 2 tab PO TID PRN # 40 tablet MDD 6 11/25/17 Esomeprazole Magnesium [Nexium 24Hr] 20 mg PO DAILY #30 capsule. 12/07/17 Pantoprazole Sodium [Protonix -] 40 mg PO BID #60 tablet.ec 12/25/17 Anemia: No Asthma: No Cancer: Yes (SKIN CA- EARLOBE) Cardiac Disorders: Yes (AFIB,) CVA: No COPD: No CHF: No Dementia: No Diabetes: No GI Disorders: Yes (GASTRITIS, diverticlitis) Disorders: No HTN: Yes Hypercholesterolemia: Yes Liver Disease: (FATTY LIVER) Seizures: No Thyroid Disease: No - Surgical History Abdominal Surgery: No Appendectomy: No Cardiac Surgery: Yes (CABG) Cholecystectomy: No Lung Surgery: No Neurologic Surgery: No Orthopedic Surgery: Yes - Family Disease History Family Disease History: Heart Disease: Father - Immunization History Immunization Up to Date: Yes - Suicide/Smoking/Psychosocial Hx Smoking Status: Yes Smoking History: Former smoker Have you smoked in the past 12 months: Yes Number of Cigarettes Smoked Daily: 0 If you are a former smoker, when did you quit?: 25 yrs Information on smoking cessation initiated: No Hx Alcohol Use: No Drug/Substance Use Hx: No Substance Use Type: None Hx Substance Use Treatment: No Review of Systems - Review of Systems Able to Perform ROS?: Yes Is the patient limited Yi proficient: No Constitutional: No: Symptoms Reported HEENTM: No: Symptoms Reported Respiratory: No: Symptoms reported Cardiac (ROS): No: Symptoms Reported ABD/GI: Yes: Nausea, Poor Appetite, Abdominal cramping : No: Symptoms Reported Musculoskeletal: No: Symptoms Reported Integumentary: No: Symptoms Reported All Other Systems: Reviewed and Negative *Physical Exam - Vital Signs Last Vital Signs Temp Pulse Resp BP Pulse Ox 98.6 F 62 19 124/65 99 12/25/17 15:45 12/25/17 15:45 12/25/17 15:45 12/25/17 15:45 12/25/17 15:45 - Physical Exam General Appearance: Yes: Nourished, Appropriately Dressed. No: Apparent Distress HEENT: positive: EOMI, OTTO, Normal ENT Inspection Respiratory/Chest: positive: Lungs Clear, Normal Breath Sounds. negative: Chest Tender, Respiratory Distress Cardiovascular: positive: Regular Rhythm, Regular Rate, S1, S2 Gastrointestinal/Abdominal: positive: Normal Bowel Sounds, Tender (diffusely), Soft Extremity: positive: Normal Capillary Refill, Normal Inspection, Normal Range of Motion Integumentary: positive: Normal Color, Dry, Warm Neurologic: positive: Fully Oriented, Alert, Normal Mood/Affect, Normal Response , Motor Strength 5/5 ED Treatment Course - LABORATORY CBC & Chemistry Diagram: 12/25/17 17:46 12/25/17 17:46 Medical Decision Making - Medical Decision Making 12/25/17 18:24 77F with chronic dyspesia presents continued symptoms. 12/25/17 18:25 basic labs as potential concern for anemia, and dispo accordingly 12/25/17 19:13 Patient signed out to Dr. Méndez *DC/Admit/Observation/Transfer Diagnosis at time of Disposition: Altered mental status - Prescriptions Prescriptions: Pantoprazole Sodium [Protonix -] 40 mg PO BID #60 tablet.ec - Referrals Referrals: Ellen Carbone MD [Primary Care Provider] - - Patient Instructions - Post Discharge Activity
[2017-12-25 18:22] LABS: HEMATOCRIT 34.2 % (32.4-45.2); HEMOGLOBIN 11.4 GM/dL (10.7-15.3); MCH 29.1 pg (25.7-33.7); MCHC 33.3 g/dl (32.0-36.0); MEAN CELL VOLUME 87.3 fl (80-96); MEAN PLT VOLUME 9.6 fl (7.5-11.1); PLATELET COUNT 252 K/MM3 (134-434); RBC 3.92 M/mm3 (3.60-5.2); RDW 16.1 % (11.6-15.6); WHITE BLOOD COUNT 8.8 K/mm3 (4.0-10.0)
[2017-12-25 18:51] LABS: PLATELET ESTIMATE ADEQUATE
--- NOTE | 2017-12-25 19:23 | PDOC ---
*Physical Exam - Vital Signs Last Vital Signs Temp Pulse Resp BP Pulse Ox 98.6 F 62 19 124/65 99 12/25/17 15:45 12/25/17 15:45 12/25/17 15:45 12/25/17 15:45 12/25/17 15:45 <Esther Lynn - Last Filed: 12/25/17 21:39> - Vital Signs Last Vital Signs Temp Pulse Resp BP Pulse Ox 98.6 F 62 19 124/65 99 12/25/17 15:45 12/25/17 15:45 12/25/17 15:45 12/25/17 15:45 12/25/17 15:45 <Sheldon Méndez - Last Filed: 12/25/17 21:49> ED Treatment Course - LABORATORY CBC & Chemistry Diagram: 12/25/17 17:46 12/25/17 20:08 - ADDITIONAL ORDERS Additional order review: Laboratory Results 12/25/17 12/25/17 12/25/17 20:08 19:00 17:50 Sodium 143 Cancelled Potassium 3.9 Cancelled Chloride 108 H Cancelled Carbon Dioxide 24 Cancelled Anion Gap 11 Cancelled BUN 11 Cancelled Creatinine 0.6 Cancelled Creat Clearance w eGFR > 60 Cancelled Random Glucose 104 Cancelled Calcium 9.5 Cancelled Total Bilirubin 0.3 D Cancelled AST 17 Cancelled ALT 12 Cancelled Alkaline Phosphatase 73 Cancelled Total Protein 7.4 Cancelled Albumin 3.7 Cancelled Stool Occult Blood Negative 12/25/17 17:46 Sodium Cancelled Potassium Cancelled Chloride Cancelled Carbon Dioxide Cancelled Anion Gap Cancelled BUN Cancelled Creatinine Cancelled Creat Clearance w eGFR Cancelled Random Glucose Cancelled Calcium Cancelled Total Bilirubin Cancelled AST Cancelled ALT Cancelled Alkaline Phosphatase Cancelled Total Protein Cancelled Albumin Cancelled Stool Occult Blood 12/25/17 17:46 RBC 3.92 MCV 87.3 MCHC 33.3 RDW 16.1 H MPV 9.6 Neutrophils % No Result Required. Lymphocytes % No Result Required. - Medications Given in the ED: ED Medications Discontinued Medications Generic Name Dose Route Start Last Admin Trade Name Freq PRN Reason Stop Dose Admin Famotidine 20 mg in 12 mls @ 144 mls/hr 12/25/17 17:10 12/25/17 18:35 Pepcid 20 Mg/12 Ml Push IVPUSH 12/25/17 17:14 144 mls/hr ONCE ONE Administration Sucralfate 1 gm 12/25/17 19:45 12/25/17 20:26 Carafate Oral Suspension - PO 12/25/17 19:46 1 gm ONCE ONE Administration <Esther Lynn - Last Filed: 12/25/17 21:39> - LABORATORY CBC & Chemistry Diagram: 12/25/17 17:46 12/25/17 20:08 - ADDITIONAL ORDERS Additional order review: Laboratory Results 12/25/17 12/25/17 17:50 17:46 Sodium Cancelled Potassium Cancelled Chloride Cancelled Carbon Dioxide Cancelled Anion Gap Cancelled BUN Cancelled Creatinine Cancelled Creat Clearance w eGFR Cancelled Random Glucose Cancelled Calcium Cancelled Total Bilirubin Cancelled AST Cancelled ALT Cancelled Alkaline Phosphatase Cancelled Total Protein Cancelled Albumin Cancelled Stool Occult Blood Negative 12/25/17 17:46 RBC 3.92 MCV 87.3 MCHC 33.3 RDW 16.1 H MPV 9.6 Neutrophils % No Result Required. Lymphocytes % No Result Required. - Medications Given in the ED: ED Medications Discontinued Medications Generic Name Dose Route Start Last Admin Trade Name Freq PRN Reason Stop Dose Admin Famotidine 20 mg in 12 mls @ 144 mls/hr 12/25/17 17:10 12/25/17 18:35 Pepcid 20 Mg/12 Ml Push IVPUSH 12/25/17 17:14 144 mls/hr ONCE ONE Administration <Sheldon Méndez - Last Filed: 12/25/17 21:49> Medical Decision Making - Medical Decision Making Patient signed out in stable condition pending CMP and FOBT which are normal and patient feels much better after sucrasulfate. Passed PO challenge. Will DC home with sucrasulfate prescription and will have them call Dr. Gamboa for earlier follow up. 12/25/17 21:43 <Sheldon Méndez - Last Filed: 12/25/17 21:49> *DC/Admit/Observation/Transfer - Discharge Dispostion Admit: No <Esther Lynn - Last Filed: 12/25/17 21:39> <Sheldon Méndez - Last Filed: 12/25/17 21:49> Diagnosis at time of Disposition: GERD (gastroesophageal reflux disease) Qualifiers: Esophagitis presence: esophagitis presence not specified Qualified Code(s): K21.9 - Gastro-esophageal reflux disease without esophagitis - Discharge Dispostion Disposition: HOME Condition at time of disposition: Improved - Prescriptions Prescriptions: Pantoprazole Sodium [Protonix -] 40 mg PO BID #60 tablet.ec Sucralfate [Carafate -] 1 gm PO BID #30 tablet - Referrals Referrals: Ellen Carbone MD [Primary Care Provider] - Alec Gamboa MD [Staff Physician] - - Patient Instructions Printed Discharge Instructions: Acute Abdomen Additional Instructions: Please use the new medicine twice a day until you see Dr. Gamboa. Please call Dr. Gamboa and let him know you were in the Emergency Department and you would like to set up an earlier appointment. Please return if the pain isn't better or worsens despite the use of your new medication. Print Language: BENGALI - Post Discharge Activity
[2017-12-25] MEDS ORDERED: SUCRALFATE 1 GM/10 ML UNIT DOSE CUPS PO ONE (19:45)
[2017-12-25 21:02] LABS: ALBUMIN 3.7 g/dl (3.4-5.0); ALK PHOS 73 U/L (45-117); ANION GAP 11 (8-16); BILIRUBIN,TOTAL 0.3 mg/dL (0.2-1.0); BLOOD UREA NITROGEN 11 mg/dL (7-18); CALCIUM 9.5 mg/dL (8.5-10.1); CHLORIDE 108 mmol/L (98-107); CO2 24 mmol/L (21-32); CREATININE 0.6 mg/dL (0.55-1.02); GLUCOSE,RANDOM 104 mg/dL (74-106); POTASSIUM 3.9 mmol/L (3.5-5.1); SGOT/AST 17 U/L (15-37); SGPT/ALT 12 U/L (12-78); SODIUM 143 mmol/L (136-145); TOT PROT 7.4 g/dl (6.4-8.2)
== END 2017-12-25 22:18 | disposition home or self-care (01) ==
LOC: JER 15:23
PROC: 3E033GC Introduction of Other Therapeutic Substance into Peripheral Vein, Percutaneous Approach (ICD-10-PCS; principal; 2017-12-25)
DX: K21.9 Gastro-esophageal reflux disease without esophagitis (principal); I25.10 Atherosclerotic heart disease of native coronary artery without angina pectoris; I10 Essential (primary) hypertension; I48.91 Unspecified atrial fibrillation; Z79.01 Long term (current) use of anticoagulants; E78.00 Pure hypercholesterolemia, unspecified; E78.5 Hyperlipidemia, unspecified; Z85.828 Personal history of other malignant neoplasm of skin
CPT/HCPCS: 36415; 80053; 82272; 85025; 96374; 99281-25

== ENCOUNTER 2018-04-23 11:51 | Emergency (ER) | payer OTHER ==
[2018-04-23 11:57] VITALS: BP 130/66; PULSE 65; TEMP 98.2; BMI 24.1
--- NOTE | 2018-04-23 12:54 | PDOC ---
History of Present Illness - General History Source: Patient Exam Limitations: No Limitations - History of Present Illness Initial Comments: 04/23/18 13:48 The patient is a 51-year-old female present to the emergency department with abdominal discomfort. As per daughter, the patient presents with abdominal discomfort, associated with nausea, weakness and an episode of dark red bloody diarrhea. The patient reports on 12/10/2017, she had an endoscopy done by Dr. Gamboa, was diagnosed with diverticulitis and prescribed 250 mg of metronidazole. The daughter reports, initially the patient was compliant with the medication, but secondary to the presents to weakness and abdominal discomfort, the patient stopped taking medicine. The daughter reports for the past 3 weeks, the patients been experiencing decreased appetite, dry mouth, weakness, and nausea, that worsens today. The daughter reports history of gastritis, states the discomfort is similar to the previous flare-ups. The daughter reports recent travel to [place] denies any out of the country visits. Denies chest pain, cough, fever, abdominal pain, fever, chills chest pain, shortness of breath, constipation, or vomiting. PMHx: HTN, CAD s/p CABG, sick sinus syndrome s/p ppm, A fib (on coumadin), HLD Allergies: Penicillins SHx: Former smoker. No alcohol or recreational drug use reported. PSHx: right shoulder arthroscopy, decompression, distal clavicle excision by Dr. Valencia on 11/25/2017, Permanent Pacemaker (2010) PCP: Ellen Jackson I <Mary Ordaz - Last Filed: 04/23/18 14:32> <Deborah Brownlee - Last Filed: 04/24/18 08:46> - General Chief Complaint: Nausea Stated Complaint: NAUSEA Time Seen by Provider: 04/23/18 12:53 Past History <Mary Ordaz - Last Filed: 04/23/18 14:32> - Past Medical History Anemia: No Asthma: No Cancer: Yes (SKIN CA- EARLOBE) Cardiac Disorders: Yes (AFIB,) CVA: No COPD: No CHF: No Dementia: No Diabetes: No GI Disorders: Yes (gastritis) Disorders: No HTN: Yes Hypercholesterolemia: Yes Liver Disease: (FATTY LIVER) Seizures: No Thyroid Disease: No - Surgical History Abdominal Surgery: No Appendectomy: No Cardiac Surgery: Yes (CABG) Cholecystectomy: No Lung Surgery: No Neurologic Surgery: No Orthopedic Surgery: Yes - Family Disease History Family Disease History: Heart Disease: Father - Immunization History Immunization Up to Date: Yes - Suicide/Smoking/Psychosocial Hx Smoking Status: Yes Smoking History: Never smoked Have you smoked in the past 12 months: Yes Number of Cigarettes Smoked Daily: 0 If you are a former smoker, when did you quit?: 25 yrs Information on smoking cessation initiated: No Hx Alcohol Use: No Drug/Substance Use Hx: No Substance Use Type: None Hx Substance Use Treatment: No <Deborah Brownlee - Last Filed: 04/24/18 08:46> - Past Medical History Allergies/Adverse Reactions: Allergies Allergy/AdvReac Type Severity Reaction Status Date / Time Penicillins AdvReac Mild Itching Verified 04/23/18 11:56 Home Medications: Ambulatory Orders Sotalol HCl [Betapace -] 80 mg PO BID #28 tablet 06/10/14 Valsartan [Diovan] 160 mg PO DAILY #14 tablet 03/15/15 Diltiazem Cd [Cardizem Cd -] 360 mg PO DAILY #30 cap.cd.24h 08/27/16 Pravastatin Sodium [Pravachol -] 40 mg PO HS 12/30/16 Apixaban [Eliquis -] 5 mg PO BID tablet 11/03/17 Hydrocodone/Acetaminophen [Hydrocodone-Acetamin 5-325 mg] 1 - 2 tab PO TID PRN # 40 tablet MDD 6 11/25/17 Esomeprazole Magnesium [Nexium 24Hr] 20 mg PO DAILY #30 capsule. 12/07/17 Pantoprazole Sodium [Protonix -] 40 mg PO BID #60 tablet.ec 12/25/17 Sucralfate Oral Suspension [Carafate Oral Suspension -] 1 gm PO BID #1 bottle Sucralfate [Carafate -] 1 gm PO BID #30 tablet 12/25/17 Review of Systems - Review of Systems Able to Perform ROS?: Yes Comments:: 04/23/18 13:48 GENERAL/CONSTITUTIONAL: (+) Weakness. No fever or chills. HEAD, EYES, EARS, NOSE AND THROAT: No change in vision. No ear pain or discharge. No sore throat. CARDIOVASCULAR: No chest pain or shortness of breath. RESPIRATORY: No cough, wheezing, or hemoptysis. GASTROINTESTINAL: (+) nausea and diarrhea. No vomiting or constipation. GENITOURINARY: No dysuria, frequency, or change in urination. MUSCULOSKELETAL: No joint or muscle swelling or pain. No neck or back pain. SKIN: No rash NEUROLOGIC: No headache, vertigo, loss of consciousness, or change in strength/ sensation. ENDOCRINE: No increased thirst. No abnormal weight change. HEMATOLOGIC/LYMPHATIC: No anemia, easy bleeding, or history of blood clots. ALLERGIC/IMMUNOLOGIC: No hives or skin allergy. <Mary Ordaz - Last Filed: 04/23/18 14:32> *Physical Exam - Vital Signs Last Vital Signs Temp Pulse Resp BP Pulse Ox 98.2 F 65 18 130/66 99 04/23/18 11:54 04/23/18 11:54 04/23/18 11:54 04/23/18 11:54 04/23/18 11:54 - Physical Exam Comments: 04/23/18 14:32 GENERAL: Awake, alert, and fully oriented, in no acute distress HEAD: No signs of trauma EYES: PERRLA, EOMI, sclera anicteric, conjunctiva clear ENT: (+) Dry mucosa. Auricles normal inspection, hearing grossly normal, nares patent, oropharynx clear without exudates. NECK: Normal ROM, supple, no lymphadenopathy, JVD, or masses LUNGS: Breath sounds equal, clear to auscultation bilaterally. No wheezes, and no crackles HEART: Regular rate and rhythm, normal S1 and S2, no murmurs, rubs or gallops ABDOMEN: Soft, nontender, normoactive bowel sounds. No guarding, no rebound. No masses EXTREMITIES: Normal range of motion, no edema. No clubbing or cyanosis. No cords, erythema, or tenderness NEUROLOGICAL: Cranial nerves II through XII grossly intact. Normal speech, normal gait SKIN: Warm, Dry, normal turgor, no rashes or lesions noted. <Mary Ordaz - Last Filed: 04/23/18 14:32> - Vital Signs Last Vital Signs Temp Pulse Resp BP Pulse Ox 98.2 F 65 18 130/66 99 04/23/18 11:54 04/23/18 11:54 04/23/18 11:54 04/23/18 11:54 04/23/18 11:54 <Deborah Brownlee - Last Filed: 04/24/18 08:46> ED Treatment Course - LABORATORY CBC & Chemistry Diagram: 04/23/18 13:15 04/23/18 13:15 - ADDITIONAL ORDERS Additional order review: 04/23/18 13:15 RBC 4.11 MCV 85.8 MCHC 32.5 RDW 16.1 H MPV 9.1 Neutrophils % 66.2 Lymphocytes % 19.0 Monocytes % 10.4 H Eosinophils % 3.1 D Basophils % 1.3 <Mary Ordaz - Last Filed: 04/23/18 14:32> - LABORATORY CBC & Chemistry Diagram: 04/23/18 13:15 04/23/18 13:15 <Deborah Brownlee - Last Filed: 04/24/18 08:46> Medical Decision Making - Medical Decision Making Labs, UA, and CT all obtained, no acute findings. Stable for DC home. <Deborah Brownlee - Last Filed: 04/24/18 08:46> *DC/Admit/Observation/Transfer - Attestations Scribe Attestion: 04/23/18 13:51 Documentation prepared by Mary Ordaz, acting as chief medical technologist for Deborah Brownlee MD. <Mary Ordaz - Last Filed: 04/23/18 14:32> - Discharge Dispostion Decision to Admit order: No <Deborah Brownlee - Last Filed: 04/24/18 08:46> Diagnosis at time of Disposition: Nausea - Discharge Dispostion Disposition: HOME Condition at time of disposition: Improved - Referrals Referrals: Ellen Carbone MD [Primary Care Provider] - - Patient Instructions Printed Discharge Instructions: DI for Nausea -- Adult - Post Discharge Activity
[2018-04-23 13:19] LABS: BASO % 1.3 % (0-2.0); EOS % 3.1 % (0-4.5); HEMATOCRIT 35.3 % (32.4-45.2); HEMOGLOBIN 11.4 GM/dL (10.7-15.3); MCH 27.8 pg (25.7-33.7); MCHC 32.5 g/dl (32.0-36.0); MEAN CELL VOLUME 85.8 fl (80-96); MEAN PLT VOLUME 9.1 fl (7.5-11.1); MONO % 10.4 % (3.8-10.2); NEUT % 66.2 % (42.8-82.8); PLATELET COUNT 248 K/MM3 (134-434); RBC 4.11 M/mm3 (3.60-5.2); RDW 16.1 % (11.6-15.6); WHITE BLOOD COUNT 9.7 K/mm3 (4.0-10.0)
[2018-04-23] MEDS ORDERED: SODIUM CHLORIDE 1,000 ML IV STA (13:28)
[2018-04-23 13:43] LABS: ALBUMIN 3.6 g/dl (3.4-5.0); ANION GAP 6 MMOL/L (8-16); BILIRUBIN,TOTAL 0.2 mg/dL (0.2-1.0); BLOOD UREA NITROGEN 15 mg/dL (7-18); CALCIUM 9.3 mg/dL (8.5-10.1); CHLORIDE 106 mmol/L (98-107); CO2 28 mmol/L (21-32); CREATININE 0.7 mg/dL (0.55-1.02); GLUCOSE,RANDOM 89 mg/dL (74-106); LIPASE 103 U/L (73-393); POTASSIUM 4.6 mmol/L (3.5-5.1); SGOT/AST 20 U/L (15-37); SGPT/ALT 15 U/L (12-78); SODIUM 140 mmol/L (136-145)
[2018-04-23 13:47] LABS: ALK PHOS 75 U/L (45-117); TOT PROT 7.4 g/dl (6.4-8.2)
[2018-04-23] MEDS ORDERED: ONDANSETRON 4 MG/2 ML VIAL IVPUSH ONE (13:50)
[2018-04-23] MEDS ORDERED: ONDANSETRON 4 MG/2 ML VIAL ONE (13:51)
[2018-04-23 14:07] LABS: URINE APPEARANCE CLEAR; URINE BILIRUBIN NEGATIVE (<2.0 mg/dL); URINE COLOR COLORLESS; URINE GLUCOSE (UA) NEGATIVE (NEGATIVE); URINE KETONE NEGATIVE (NEGATIVE); URINE LEUK ESTERASE NEGATIVE (NEGATIVE); URINE NITRITE NEGATIVE (NEGATIVE); URINE PROTEIN NEGATIVE (NEGATIVE); URINE UROBILINOGEN NEGATIVE mg/dL (0.2-1.0)
--- NOTE | 2018-04-25 13:55 | EKG ---
Test Reason : Blood Pressure : / mmHG Vent. Rate : 060 BPM Atrial Rate : 060 BPM P-R Int : 282 ms QRS Dur : 138 ms QT Int : 538 ms P-R-T Axes : 069 -21 141 degrees QTc Int : 538 ms Atrial-paced rhythm with prolonged AV conduction LEFT BUNDLE BRANCH BLOCK ABNORMAL ECG WHEN COMPARED WITH ECG OF 07-DEC-2017 14:11, T WAVE INVERSION LESS EVIDENT IN LATERAL LEADS Confirmed by YOGESH KELLEY MD ([id number]) on 04/25/2018 1:55:19 PM Referred By: Confirmed By:YOGESH KELLEY MD
== END 2018-04-23 17:40 | disposition home or self-care (01) ==
LOC: JER 11:51
PROC: 3E033GC Introduction of Other Therapeutic Substance into Peripheral Vein, Percutaneous Approach (ICD-10-PCS; principal; 2018-04-23)
DX: R11.0 Nausea (principal); I25.10 Atherosclerotic heart disease of native coronary artery without angina pectoris; Z95.1 Presence of aortocoronary bypass graft; I10 Essential (primary) hypertension; I48.91 Unspecified atrial fibrillation; Z79.01 Long term (current) use of anticoagulants; E78.00 Pure hypercholesterolemia, unspecified; K76.0 Fatty (change of) liver, not elsewhere classified; Z85.828 Personal history of other malignant neoplasm of skin; Z95.0 Presence of cardiac pacemaker; Z88.0 Allergy status to penicillin
CPT/HCPCS: 36415; 74176-TC; 80053; 81003; 81015; 82550; 83690; 84484; 85025; 93005; 93010; 96361; 96374; 99281-25; J7030

== ENCOUNTER 2018-06-21 12:11 | Emergency (ER) | payer OTHER ==
[2018-06-21 12:19] VITALS: PULSE 60; TEMP 98.2; BMI 27.1
--- NOTE | 2018-06-21 12:38 | PDOC ---
History of Present Illness - General Chief Complaint: Blood Pressure Problem Stated Complaint: BLOOD PRESSURE PROBLEM Time Seen by Provider: 06/21/18 12:21 History Source: Patient, Family (son) Exam Limitations: Language Barrier - History of Present Illness Initial Comments: 06/21/18 12:37 *son translated for patient Pt is a 77yo f with PMH of CAD s/p CABG six years ago, HTN, Afib presenting to ED with son for evaluation of high blood pressure. 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 BP was measured at school 3 times and it was 180s/100s. Pt was advised to go to the ED. Pt says she never had issues with blood pressure in the past. She admits to feeling tired. She denies chest pain, SOB, back pain, neck pain, headache, changes in vision, lightheadedness, dizziness, abdominal pain, n/v/d, weakness, numbness, tingling. PMD: [place] Cardio: [place] PMH: see hpi PSH: CABG Meds: see med rec Social: denies Allergies: PCN Past History - Past Medical History Allergies/Adverse Reactions: Allergies Allergy/AdvReac Type Severity Reaction Status Date / Time Penicillins AdvReac Mild Itching Verified 06/21/18 12:13 Home Medications: Ambulatory Orders Sotalol HCl [Betapace -] 80 mg PO BID #28 tablet 06/10/14 Valsartan [Diovan] 160 mg PO DAILY #14 tablet 03/15/15 Diltiazem Cd [Cardizem Cd -] 360 mg PO DAILY #30 cap.cd.24h 08/27/16 Pravastatin Sodium [Pravachol -] 40 mg PO HS 12/30/16 Apixaban [Eliquis -] 5 mg PO BID tablet 11/03/17 Hydrocodone/Acetaminophen [Hydrocodone-Acetamin 5-325 mg] 1 - 2 tab PO TID PRN # 40 tablet MDD 6 11/25/17 Esomeprazole Magnesium [Nexium 24Hr] 20 mg PO DAILY #30 capsule.dr 12/07/17 Pantoprazole Sodium [Protonix -] 40 mg PO BID #60 tablet.ec 12/25/17 Sucralfate Oral Suspension [Carafate Oral Suspension -] 1 gm PO BID #1 bottle Sucralfate [Carafate -] 1 gm PO BID #30 tablet 12/25/17 Anemia: No Asthma: No Cancer: Yes (SKIN CA- EARLOBE) Cardiac Disorders: Yes (AFIB,) CVA: No COPD: No CHF: No Dementia: No Diabetes: No GI Disorders: Yes (gastritis) Disorders: No HTN: Yes Hypercholesterolemia: Yes Liver Disease: (FATTY LIVER) Seizures: No Thyroid Disease: No - Surgical History Abdominal Surgery: No Appendectomy: No Cardiac Surgery: Yes (CABG) Cholecystectomy: No Lung Surgery: No Neurologic Surgery: No Orthopedic Surgery: Yes - Family Disease History Family Disease History: Heart Disease: Father - Immunization History Immunization Up to Date: Yes - Suicide/Smoking/Psychosocial Hx Smoking Status: Yes Smoking History: Never smoked Have you smoked in the past 12 months: Yes Number of Cigarettes Smoked Daily: 0 If you are a former smoker, when did you quit?: 25 yrs ago Information on smoking cessation initiated: No Hx Alcohol Use: No Drug/Substance Use Hx: No Substance Use Type: None Hx Substance Use Treatment: No *Physical Exam - Vital Signs Last Vital Signs Temp Pulse Resp BP Pulse Ox 98.2 F 60 18 119/56 L 90 L 06/21/18 12:14 06/21/18 12:14 06/21/18 12:14 06/21/18 12:14 06/21/18 12:14 ED Treatment Course - LABORATORY CBC & Chemistry Diagram: 06/21/18 13:23 06/21/18 13:23 Medical Decision Making - Medical Decision Making 06/21/18 13:47 Pt is a 77yo f with PMH of CAD s/p CABG six years ago, HTN, Afib presenting to ED with son for evaluation of high blood pressure. + Tiredness. Vitals: BP 119/56 (recheck 146/64) 98% RA, HR 60s PE: benign. DDx: hypertensive urgency v. emergency, acs, cva, pna, uti Pt bp normal in ED. because of history, will do EKG and labs. low suspicion for pna due to normal breath sounds and no fever, cough. Will collect UA for poss. uti. Not hypertensive urgency or emergency, pt systolic bp in 140s. EKG: Labs: wnl. normal trop and CK. normal physical exam. Will recheck vitals. Vital recheck: BP 150s/54, HR 60 98% RA. Pt hemodynamically stable, has good follow up. can be dc home. no active complaints. Pt eating at time of discharge. Pt agreed to plan. Given return precautions. *DC/Admit/Observation/Transfer Diagnosis at time of Disposition: Blood pressure check - Discharge Dispostion Disposition: HOME Condition at time of disposition: Good Decision to Admit order: No - Referrals Referrals: Ellen Carbone MD [Primary Care Provider] - - Patient Instructions Printed Discharge Instructions: DI for High Blood Pressure, How to Monitor Your Blood Pressure at Home Additional Instructions: Usted fue visto aqu hoy para la evaluacin de la presin arterial tio. Todas vale pruebas fueron normales. Por favor josette tita ramo con el Dr. Carbone para tita mayor evaluacin y manejo de la presin arterial. [place] vale medicamentos segn las indicaciones. Regrese a la shilo de emergencias si: romano presin arterial es tio (ms de 180/100 ), tiene elyssa de juan, tiene cambios en la visin, tiene dolor en el pecho , se siente mareado o si se presenta algn sntoma nuevo. [place] You were seen here today for evaluation of high blood pressure. All of your tests were normal. Please make an appointment with Dr. Carbone for further evaluation and management of blood pressure. Take your medications as directed. Come back to the emergency room if: your blood pressure is high (over 180/100), you have headaches, you have changes in vision, you have chest pain, you feel dizzy, or if any new concerning symptom develops. Thank you Print Language: CITIZEN OF [place] - Post Discharge Activity
--- NOTE | 2018-06-21 12:43 | PDOC ---
Attending Attestation - Resident Resident Name: JessicaSaYajaira - ED Attending Attestation I have performed the following: I have examined & evaluated the patient, The case was reviewed & discussed with the resident, I agree w/resident's findings & plan, Exceptions are as noted - HPI HPI: 06/21/18 13:15 77y F hx of CABG(6 years ago), CAD, HTN, and AFib on eliquis, presents for evaluation of fatigue. 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 She reports a blood pressure of 180/100 three times, which prompted her visit to the emergency department. Patient denies chest pain , shortness of breath, dizziness, palptiations, fever/chills, cough, diarrhea, melena, bpr, dysuria, frequency, foul smelling urine and headaches. Pt state she feels better currently. Upon arrival, the pts bp was normal (she took her bp meds around 8:30am) pmd [employer] card: carrolPerioSeal - Physicial Exam PE: 06/21/18 13:20 GENERAL: The patient is awake, alert, and fully oriented, Nontoxic - in no acute distress. LUNGS: Breath sounds equal, clear to auscultation bilaterally. No wheezes, no rhonchi, no rales. HEART: Regular rate and rhythm, systolic murmur, no rub or gallop. ABDOMEN: Soft, nontender, No guarding, no rebound. . No CVA tenderness EXTREMITIES: Normal range of motion, NEUROLOGICAL: No facial assymetry, Normal speech, moving roe 4 extrmitieis spontaneously and symmetriclly PSYCH: Normal mood, normal affect. SKIN: Warm, Dry, normal turgor, - Medical Decision Making 06/21/18 12:42 77y F hx of afib, cad, presents with fatigue. was found to be hypertensive at school. bp normal here will ck ekg to screen for acs (though pt has no cp, sob or any other sypmtoms suggestive of AMI) labs to screen for anemia, metabolic derangement UA to screen for UTI 06/21/18 14:17 labs reviewed, wnl UTI noted for +hematuria - but pt states this is chronic for her, and sh ehas had multiple workups without an answer. will defer further workup and hav ept fu with PMD pt feels better, states she is hungry, will dc wiht pmd fu return precautions were discussed Heart Score/ECG Review - ECG Impressions Comment:: 06/21/18 13:21 Twelve-lead EKG was performed and reviewed by me. Atrial paced rhythm Left bundle-branch block Rate of 60
[2018-06-21 13:34] LABS: BASO % 1.3 % (0-2.0); EOS % 2.8 % (0-4.5); HEMATOCRIT 34.2 % (32.4-45.2); HEMOGLOBIN 10.9 GM/dL (10.7-15.3); LYMPH % 23.3 % (8-40); MCH 27.4 pg (25.7-33.7); MEAN CELL VOLUME 85.6 fl (80-96); MEAN PLT VOLUME 9.1 fl (7.5-11.1); MONO % 11.3 % (3.8-10.2); NEUT % 61.3 % (42.8-82.8); PLATELET COUNT 236 K/MM3 (134-434); RDW 15.9 % (11.6-15.6); WHITE BLOOD COUNT 7.7 K/mm3 (4.0-10.0)
[2018-06-21 13:45] LABS: URINE APPEARANCE CLEAR; URINE BILIRUBIN NEGATIVE (<2.0 mg/dL); URINE COLOR COLORLESS; URINE GLUCOSE (UA) NEGATIVE (NEGATIVE); URINE KETONE NEGATIVE (NEGATIVE); URINE LEUK ESTERASE NEGATIVE (NEGATIVE); URINE NITRITE NEGATIVE (NEGATIVE); URINE PROTEIN NEGATIVE (NEGATIVE); URINE UROBILINOGEN NEGATIVE mg/dL (0.2-1.0)
[2018-06-21 13:48] LABS: EPI CELLS RARE /HPF (FEW)
[2018-06-21 13:59] LABS: ALBUMIN 3.6 g/dl (3.4-5.0); ALK PHOS 82 U/L (45-117); ANION GAP 6 MMOL/L (8-16); BILIRUBIN,TOTAL 0.2 mg/dL (0.2-1); BLOOD UREA NITROGEN 13 mg/dL (7-18); CALCIUM 8.9 mg/dL (8.5-10.1); CHLORIDE 108 mmol/L (98-107); CO2 28 mmol/L (21-32); CREATININE 0.7 mg/dL (0.55-1.3); GLUCOSE,RANDOM 86 mg/dL (74-106); SGOT/AST 19 U/L (15-37); SGPT/ALT 14 U/L (13-61); SODIUM 142 mmol/L (136-145); TOT PROT 7.1 g/dl (6.4-8.2)
[2018-06-21 15:27] VITALS: BP 157/54
--- NOTE | 2018-06-21 16:13 | EKG ---
Test Reason : Blood Pressure : / mmHG Vent. Rate : 060 BPM Atrial Rate : 060 BPM P-R Int : 284 ms QRS Dur : 142 ms QT Int : 532 ms P-R-T Axes : 076 -18 071 degrees QTc Int : 532 ms Atrial-paced rhythm with prolonged AV conduction LEFT BUNDLE BRANCH BLOCK ABNORMAL ECG WHEN COMPARED WITH ECG OF 23-APR-2018 13:32, NO SIGNIFICANT CHANGE WAS FOUND Confirmed by MD DYLLAN, ANTOINE ([id number]) on 06/21/2018 4:12:32 PM Referred By: Confirmed By:ANTOINE MIJARES MD
== END 2018-06-21 15:00 | disposition home or self-care (01) ==
LOC: JER 12:11
DX: I25.10 Atherosclerotic heart disease of native coronary artery without angina pectoris (principal); Z95.1 Presence of aortocoronary bypass graft; I10 Essential (primary) hypertension; I48.91 Unspecified atrial fibrillation; Z79.01 Long term (current) use of anticoagulants; R31.9 Hematuria, unspecified
CPT/HCPCS: 36415; 80053; 81003; 81015; 82550; 84484; 85025; 93005; 93010; 99282-25

== ENCOUNTER 2018-08-16 09:33 | Inpatient (IN) | payer OTHER ==
--- NOTE | 2018-08-16 10:09 | PDOC ---
History of Present Illness - General Chief Complaint: Chest Pain Stated Complaint: Chest Pain Time Seen by Provider: 08/16/18 09:56 - History of Present Illness Initial Comments: 08/16/18 10:27 77 F with h/o CABG(6 years ago), CAD, HTN, and AFib on eliquis, presenting to ED with chest pressure. Pt states that she has had midsternal pressure-like pain x 3 days. She states that it occurs mostly at night. She denies any SOB. Denies cough/fever. Denies leg swelling. Currently endorses mild pressure. Not exertional, no pleuritic. Does not recall ever having this pain before. Past History - Past Medical History Allergies/Adverse Reactions: Allergies Allergy/AdvReac Type Severity Reaction Status Date / Time Penicillins AdvReac Mild Itching Verified 06/21/18 12:13 Home Medications: Ambulatory Orders Sotalol HCl [Betapace -] 80 mg PO BID #28 tablet 06/10/14 Valsartan [Diovan] 160 mg PO DAILY #14 tablet 03/15/15 Diltiazem Cd [Cardizem Cd -] 360 mg PO DAILY #30 cap.cd.24h 08/27/16 Pravastatin Sodium [Pravachol -] 40 mg PO HS 12/30/16 Apixaban [Eliquis -] 5 mg PO BID tablet 11/03/17 Hydrocodone/Acetaminophen [Hydrocodone-Acetamin 5-325 mg] 1 - 2 tab PO TID PRN # 40 tablet MDD 6 11/25/17 Esomeprazole Magnesium [Nexium 24Hr] 20 mg PO DAILY #30 capsule.dr 12/07/17 Pantoprazole Sodium [Protonix -] 40 mg PO BID #60 tablet.ec 12/25/17 Sucralfate Oral Suspension [Carafate Oral Suspension -] 1 gm PO BID #1 bottle Sucralfate [Carafate -] 1 gm PO BID #30 tablet 12/25/17 Anemia: No Asthma: No Cancer: Yes (SKIN CA- EARLOBE) Cardiac Disorders: Yes (AFIB,) CVA: No COPD: No CHF: No Dementia: No Diabetes: No GI Disorders: Yes (gastritis) Disorders: No HTN: Yes Hypercholesterolemia: Yes Liver Disease: (FATTY LIVER) Seizures: No Thyroid Disease: No - Surgical History Abdominal Surgery: No Appendectomy: No Cardiac Surgery: Yes (CABG) Cholecystectomy: No Lung Surgery: No Neurologic Surgery: No Orthopedic Surgery: Yes - Family Disease History Family Disease History: Heart Disease: Father - Immunization History Immunization Up to Date: Yes - Suicide/Smoking/Psychosocial Hx Smoking Status: Yes Smoking History: Never smoked Have you smoked in the past 12 months: Yes Number of Cigarettes Smoked Daily: 0 If you are a former smoker, when did you quit?: 25 yrs ago Hx Alcohol Use: No Drug/Substance Use Hx: No Substance Use Type: None Hx Substance Use Treatment: No Cardiac Specific PMH - Complaint Specific PMHX Cardiac Arrhythmia: Yes (AF) Pacemaker: Yes (02/2011 [employer]) Review of Systems - Review of Systems Comments:: 08/16/18 10:31 "GENERAL/CONSTITUTIONAL: No fever or chills. No weakness. HEAD, EYES, EARS, NOSE AND THROAT: No change in vision. No ear pain or discharge. No sore throat. CARDIOVASCULAR: + chest pressure, no shortness of breath, no loss of consciousness RESPIRATORY: No cough, wheezing, or hemoptysis. GASTROINTESTINAL: No nausea, vomiting, diarrhea or constipation. GENITOURINARY: No dysuria, frequency, or change in urination. MUSCULOSKELETAL: No joint or muscle swelling or pain. No neck or back pain. SKIN: No rash NEUROLOGIC: No vertigo, no change in strength/sensation. ENDOCRINE: No increased thirst. No abnormal weight change. HEMATOLOGIC/LYMPHATIC: No anemia, easy bleeding, or history of blood clots. ALLERGIC/IMMUNOLOGIC: No hives or skin allergy. *Physical Exam - Vital Signs Last Vital Signs Temp Pulse Resp BP Pulse Ox 97.7 F 48 L 18 146/56 L 99 08/16/18 09:33 08/16/18 09:33 08/16/18 09:33 08/16/18 09:33 08/16/18 09:33 - Physical Exam Comments: 08/16/18 10:32 "GENERAL: Awake, alert, and fully oriented, in no acute distress. HEAD: No signs of trauma EYES: PERRLA, EOMI, sclera anicteric, conjunctiva clear ENT: Auricles normal inspection, hearing grossly normal, nares patent, oropharynx clear without exudates. Moist mucosa NECK: Nontender, no stepoffs, Normal ROM, supple, no lymphadenopathy, JVD, or masses LUNGS: Breath sounds equal, clear to auscultation bilaterally. No wheezes, and no crackles HEART: Regular rate and rhythm, normal S1 and S2, no murmurs, rubs or gallops ABDOMEN: Soft, nontender, normoactive bowel sounds. No guarding, no rebound. No masses EXTREMITIES: Normal range of motion, no edema. No clubbing or cyanosis. No cords, erythema, or tenderness NEUROLOGICAL: Cranial nerves II through XII intact. 5/5 strength and sensation in all extremities, Normal speech, normal gait, normal cerebellar function SKIN: Warm, Dry, normal turgor, no rashes or lesions noted. Heart Score/ECG Review - History History: Moderately suspicious - Electrocardiogram EKG: Non specific repolarization disturbance - Age Age: >/= 65 - Risk Factors Risk Factors Heart Score: Yes Hx Hypercholesterolemia, Yes Hx Hypertension, Yes Hx Diabetes Based on the list above the patient has:: >/=3 risk factors or Hx atherosclerotic disease - Troponin Troponin: </= normal limit - Score Heart Score - Total: 6 - ECG Impressions Comment:: 08/16/18 10:07 Paced rhythm, new lateral TWIs in V5-V6 not seen on prior EKG Moderate Sedation - Procedure Monitoring Vital Signs: Procedure Monitoring Vital Signs Temperature 97.7 F 08/16/18 09:33 Pulse Rate 48 L 08/16/18 09:33 Respiratory Rate 18 08/16/18 09:33 Blood Pressure 146/56 L 08/16/18 09:33 O2 Sat by Pulse Oximetry (%) 99 08/16/18 09:33 ED Treatment Course - LABORATORY CBC & Chemistry Diagram: 08/16/18 10:02 08/16/18 10:50 - ADDITIONAL ORDERS Additional order review: Laboratory Results 08/16/18 08/16/18 08/16/18 10:50 10:50 10:50 PT with INR 24.90 H INR 2.09 H PTT (Actin FS) 34.9 Sodium Potassium Chloride Carbon Dioxide Anion Gap BUN Creatinine Creat Clearance w eGFR Random Glucose Calcium Total Bilirubin AST ALT Alkaline Phosphatase Creatine Kinase 57 Troponin I < 0.02 B-Natriuretic Peptide 517.7 H Total Protein Albumin Lipase 105 Urine Color Urine Appearance Urine pH Ur Specific Calcium Urine Protein Urine Glucose (UA) Urine Ketones Urine Blood Urine Nitrite Urine Bilirubin Urine Urobilinogen Ur Leukocyte Esterase Urine WBC (Auto) Urine RBC (Auto) Ur Epithelial Cells Urine Bacteria Hyaline Casts Urine Mucus 08/16/18 08/16/18 10:50 10:50 PT with INR INR PTT (Actin FS) Sodium 138 Potassium 5.1 Chloride 102 Carbon Dioxide 27 Anion Gap 8 BUN 16 Creatinine 0.9 Creat Clearance w eGFR > 60 Random Glucose 98 Calcium 8.9 Total Bilirubin 0.3 AST 30 ALT 18 Alkaline Phosphatase 79 Creatine Kinase Troponin I B-Natriuretic Peptide Total Protein 7.0 Albumin 3.4 Lipase Urine Color Naima Urine Appearance Clear Urine pH 5.0 D Ur Specific Calcium 1.025 Urine Protein 1+ H Urine Glucose (UA) Negative Urine Ketones Trace H Urine Blood 2+ H Urine Nitrite Negative Urine Bilirubin Negative Urine Urobilinogen 2.0 H Ur Leukocyte Esterase Trace Urine WBC (Auto) 2 Urine RBC (Auto) 19 Ur Epithelial Cells Rare Urine Bacteria Rare Hyaline Casts 12 Urine Mucus Moderate 08/16/18 10:02 RBC 3.81 MCV 85.2 MCHC 33.5 RDW 16.4 H MPV 9.3 Neutrophils % 70.8 Lymphocytes % 16.2 D Monocytes % 10.5 H Eosinophils % 1.3 Basophils % 1.2 - RADIOLOGY Radiology Studies Ordered: Category Date Time Status CHEST X-RAY PORTABLE* [RAD] Stat Radiology 08/16/18 10:03 Completed Medical Decision Making - Medical Decision Making 08/16/18 10:32 77 F with chest pressure x 3 days. EKG with new TWIs in lateral leads. Will need ACS r/o. Pt with no evidence of volume overload on exam. No DVT risk factors and is on eliquis. Low suspicion for PE. - Labs, trop, BNP - CXR - Consult Dr. Torres - Admit tele 08/16/18 12:18 Labs wnl, trop negative Dr. Torres unavailable, will consult Dr. Ferrell 08/16/18 12:[address] Ferrell, who recommends tele admission for trending of troponins Pt admitted to Dr. Grissom *DC/Admit/Observation/Transfer Diagnosis at time of Disposition: Chest pain - Discharge Dispostion Decision to Admit order: Yes - Referrals Referrals: Ellen Carbone MD [Primary Care Provider] - - Patient Instructions - Post Discharge Activity - Attestations Physician Attestion: 08/16/18 12:46 I, Dr. Cesar Tobin MD, attest that this document has been prepared under my direction and personally reviewed by me in its entirety. I further attest, that it accurately reflects all work, treatment, procedures and medical decision -making performed by me.
[2018-08-16 11:04] LABS: BASO % 1.2 % (0-2.0); EOS % 1.3 % (0-4.5); HEMATOCRIT 32.4 % (32.4-45.2); HEMOGLOBIN 10.9 GM/dL (10.7-15.3); LYMPH % 16.2 % (8-40); MCH 28.5 pg (25.7-33.7); MCHC 33.5 g/dl (32.0-36.0); MEAN CELL VOLUME 85.2 fl (80-96); MEAN PLT VOLUME 9.3 fl (7.5-11.1); MONO % 10.5 % (3.8-10.2); NEUT % 70.8 % (42.8-82.8); PLATELET COUNT 246 K/MM3 (134-434); RBC 3.81 M/mm3 (3.60-5.2); RDW 16.4 % (11.6-15.6); WHITE BLOOD COUNT 10.4 K/mm3 (4.0-10.0)
[2018-08-16 11:14] LABS: URINE APPEARANCE CLEAR; URINE BILIRUBIN NEGATIVE (<2.0 mg/dL); URINE COLOR AMBER; URINE GLUCOSE (UA) NEGATIVE (NEGATIVE); URINE KETONE TRACE (NEGATIVE); URINE LEUK ESTERASE TRACE (NEGATIVE); URINE NITRITE NEGATIVE (NEGATIVE); URINE PROTEIN 1+ (NEGATIVE)
[2018-08-16 11:18] LABS: EPI CELLS RARE /HPF (FEW); URINE BACTERIA RARE /hpf (NONE SEEN); URINE HYALINE CAST 12 /lpf; URINE MUCUS MODERATE
[2018-08-16 11:44] LABS: ALBUMIN 3.4 g/dl (3.4-5.0); ALK PHOS 79 U/L (45-117); ANION GAP 8 MMOL/L (8-16); BILIRUBIN,TOTAL 0.3 mg/dL (0.2-1); BLOOD UREA NITROGEN 16 mg/dL (7-18); CALCIUM 8.9 mg/dL (8.5-10.1); CHLORIDE 102 mmol/L (98-107); CO2 27 mmol/L (21-32); CREATININE 0.9 mg/dL (0.55-1.3); GLUCOSE,RANDOM 98 mg/dL (74-106); POTASSIUM 5.1 mmol/L (3.5-5.1); SGOT/AST 30 U/L (15-37); SGPT/ALT 18 U/L (13-61); SODIUM 138 mmol/L (136-145)
[2018-08-16 11:47] LABS: N-TERMINAL BNP 517.7 pg/ml (5-450)
[2018-08-16 11:53] LABS: INR 2.09 (0.83-1.09); PROTHROMBIN TIME (PATIENT) 24.9 SEC (9.7-13.0)
[2018-08-16 11:55] LABS: ACTIVATED PTT 34.9 SECONDS (25.2-36.5)
--- NOTE | 2018-08-16 14:24 | HP ---
Admitting History and Physical - Primary Care Physician PCP: Gabe eNgrete - Admission Chief Complaint: CHEST PAIN WITH T WAVE INVERSION ON EKG History of Present Illness: 77 Y/O FEMALE WITH HISTORY OF CABG HERE WITH SUBSTERNAL CHEST PAIN FOR 1 DAY WITH SOB. History Source: Patient Limitations to Obtaining History: Other - Past Medical History Cardiovascular: Yes: AFIB, CAD, HTN, Hyperlipdemia Gastrointestinal: Yes: Diverticulosis, Hemorrhoids. No: Constipation Musculoskeletal: Yes: Osteoarthritis (R shoulder/injury) - Past Surgical History Past Surgical History: Yes: Colonoscopy, Oopherectomy (right), Permanent Pacemaker, Upper Endoscopy - Smoking History Smoking history: Never smoked Have you smoked in the past 12 months: Yes Aproximately how many cigarettes per day: 0 If you are a former smoker, when did you quit?: 25 yrs ago - Alcohol/Substance Use Hx Alcohol Use: No History of Substance Use: reports: None - Social History ADL: Independent History of Recent Travel: No Home Medications - Allergies Allergies/Adverse Reactions: Allergies Allergy/AdvReac Type Severity Reaction Status Date / Time Penicillins AdvReac Mild Itching Verified 06/21/18 12:13 - Home Medications Home Medications: Ambulatory Orders Sotalol HCl [Betapace -] 80 mg PO BID #28 tablet 06/10/14 Valsartan [Diovan] 160 mg PO DAILY #14 tablet 03/15/15 Diltiazem Cd [Cardizem Cd -] 360 mg PO DAILY #30 cap.cd.24h 08/27/16 Pravastatin Sodium [Pravachol -] 40 mg PO HS 12/30/16 Apixaban [Eliquis -] 5 mg PO BID tablet 11/03/17 Esomeprazole Magnesium [Nexium 24Hr] 20 mg PO DAILY #30 capsule.dr 12/07/17 Pantoprazole Sodium [Protonix -] 40 mg PO BID #60 tablet.ec 12/25/17 Sucralfate Oral Suspension [Carafate Oral Suspension -] 1 gm PO BID #1 bottle Sucralfate [Carafate -] 1 gm PO BID #30 tablet 12/25/17 Review of Systems - Review of Systems Constitutional: reports: No Symptoms Eyes: reports: No Symptoms HENT: reports: No Symptoms Neck: reports: No Symptoms Cardiovascular: reports: Chest Pain, Shortness of Breath Respiratory: reports: Orthopnea Gastrointestinal: reports: No Symptoms Genitourinary: reports: No Symptoms Musculoskeletal: reports: No Symptoms Integumentary: reports: No Symptoms Neurological: reports: Dizziness, Headache Endocrine: reports: No Symptoms Hematology/Lymphatic: reports: No Symptoms Psychiatric: reports: No Symptoms Physical Examination Vital Signs: Vital Signs Temperature 97.7 F 08/16/18 09:33 Pulse Rate 48 L 08/16/18 09:33 Respiratory Rate 18 08/16/18 09:33 Blood Pressure 146/56 L 08/16/18 09:33 O2 Sat by Pulse Oximetry (%) 99 08/16/18 09:33 Constitutional: Yes: No Distress Eyes: Yes: WNL HENT: Yes: WNL Neck: Yes: WNL Cardiovascular: Yes: Pulse Irregular Respiratory: Yes: WNL Gastrointestinal: Yes: WNL Renal/: Yes: WNL Musculoskeletal: Yes: WNL Extremities: Yes: WNL Edema: No Peripheral Pulses WNL: Yes Integumentary: Yes: WNL Wound/Incision: Yes: Clean/Dry Neurological: Yes: WNL ...Motor Strength: WNL Psychiatric: Yes: WNL Labs: CBC, BMP 08/16/18 10:02 08/16/18 10:50 Imaging - Results Chest X-ray: Report Reviewed Problem List - Problems (1) Chest pain Code(s): R07.9 - CHEST PAIN, UNSPECIFIED Qualifiers: Ischemic chest pain type: unstable angina pectoris (2) Afib Code(s): I48.91 - UNSPECIFIED ATRIAL FIBRILLATION Qualifiers: Atrial fibrillation type: paroxysmal Qualified Code(s): I48.0 - Paroxysmal atrial fibrillation (3) Coronary artery disease Code(s): I25.10 - ATHSCL HEART DISEASE OF [place] CORONARY ARTERY W/O ANG PCTRS Qualifiers: Coronary Disease-Associated Artery/Lesion type: [place] artery [place] vs. transplanted heart: [place] heart Associated angina: with stable angina Qualified Code(s): I25.118 - Atherosclerotic heart disease of [place] coronary artery with other forms of angina pectoris (4) Hyperlipidemia Code(s): E78.5 - HYPERLIPIDEMIA, UNSPECIFIED Qualifiers: Hyperlipidemia type: pure hypercholesterolemia Qualified Code(s): E78.00 - Pure hypercholesterolemia, unspecified; E78.0 - Pure hypercholesterolemia (5) Hypertension Code(s): I10 - ESSENTIAL (PRIMARY) HYPERTENSION Qualifiers: Hypertension type: essential hypertension Qualified Code(s): I10 - Essential (primary) hypertension (6) Pacemaker Code(s): Z95.0 - PRESENCE OF CARDIAC PACEMAKER (7) T wave inversion on electrocardiogram Code(s): R94.31 - ABNORMAL ELECTROCARDIOGRAM [ECG] [EKG] Assessment/Plan TWAVE INVERSION TO LATER LEADS ARE NEW WILL D/W DR TOPETE FOR TRANSFER TO CARDIAC YIELD IMPROVEMENT ENGINEER WILL MONITOR FOR NOW ON TELEMETRY HERE CHECK LABS WITH SERIAL ENZYMES FIRST SET NEGATIVE 02 SUPPORT PATIENT IS COMFORTABLE AT THIS TIME
--- NOTE | 2018-08-16 16:54 | EKG ---
Test Reason : Blood Pressure : / mmHG Vent. Rate : 066 BPM Atrial Rate : 066 BPM P-R Int : 244 ms QRS Dur : 136 ms QT Int : 460 ms P-R-T Axes : 077 -11 160 degrees QTc Int : 482 ms Atrial-paced rhythm with prolonged AV conduction WITH PREMATURE SUPRAVENTRICULAR COMPLEXES LEFT BUNDLE BRANCH BLOCK ABNORMAL ECG WHEN COMPARED WITH ECG OF 21-JUN-2018 13:11, PREMATURE SUPRAVENTRICULAR COMPLEXES ARE NOW PRESENT T WAVE INVERSION MORE EVIDENT IN LATERAL LEADS Confirmed by MD Aleksandr, Ariel ([id number]) on 08/16/2018 4:54:25 PM Referred By: Confirmed By:Ariel Brandon MD
[2018-08-16] MEDS ORDERED: ACETAMINOPHEN 325 MG TABLET (FP) ONE (20:56)
[2018-08-16] MEDS: ACETAMINOPHEN 325 MG TABLET (FP) PO PRN (20:57)
[2018-08-16] MEDS ORDERED: ACETAMINOPHEN INJECTION 100 ML IVPB ONE (21:01)
[2018-08-16] MEDS ORDERED: APIXABAN 5 MG TABLET PO ONE (21:06)
[2018-08-16] MEDS ORDERED: PANTOPRAZOLE 40 MG TABLET (FP) ONE (21:06)
[2018-08-16] MEDS: SOTALOL HCL 80 MG TABLET (FP) PO SCH (21:38)
[2018-08-16] MEDS: APIXABAN 5 MG TABLET PO SCH (21:38)
[2018-08-16] MEDS: PANTOPRAZOLE 40 MG TABLET (FP) PO SCH (21:39)
[2018-08-17 05:52] LABS: HEMATOCRIT 35.9 % (32.4-45.2); HEMOGLOBIN 11.1 GM/dL (10.7-15.3); MCH 27.1 pg (25.7-33.7); MEAN CELL VOLUME 87.6 fl (80-96); PLATELET COUNT 159 K/MM3 (134-434); RDW 16.3 % (11.6-15.6); WHITE BLOOD COUNT 8.7 K/mm3 (4.0-10.0)
[2018-08-17 06:58] LABS: ALBUMIN 3.6 g/dl (3.4-5.0); ALK PHOS 85 U/L (45-117); ANION GAP 6 MMOL/L (8-16); BILIRUBIN,TOTAL 0.3 mg/dL (0.2-1); BLOOD UREA NITROGEN 16 mg/dL (7-18); CALCIUM 8.9 mg/dL (8.5-10.1); CHLORIDE 107 mmol/L (98-107); CHOLESTEROL 154 mg/dL (50-200); CO2 27 mmol/L (21-32); CREATININE 0.8 mg/dL (0.55-1.3); GLUCOSE,RANDOM 105 mg/dL (74-106); HDL CHOLESTEROL 62 mg/dL (40-60); POTASSIUM 4.6 mmol/L (3.5-5.1); SGOT/AST 24 U/L (15-37); SGPT/ALT 20 U/L (13-61); SODIUM 141 mmol/L (136-145); TOT PROT 7.1 g/dl (6.4-8.2); TRIGLYCERIDES 89 mg/dL (0-150)
[2018-08-17] MEDS: SOTALOL HCL 80 MG TABLET (FP) PO SCH ×2 (10:42→22:34)
[2018-08-17] MEDS: APIXABAN 5 MG TABLET PO SCH ×2 (10:42→22:34)
[2018-08-17] MEDS: PANTOPRAZOLE 40 MG TABLET (FP) PO SCH ×2 (10:42→22:34)
[2018-08-17] MEDS: VALSARTAN 160 MG TABLET (UD) PO SCH (10:42)
--- NOTE | 2018-08-17 16:23 | CON.CARD ---
Consult Consult Specialty:: Cardiology Referred by:: Dr. Grissom Reason for Consultation:: chest pain - History of Present Illness Chief Complaint: chest pain History of Present Illness: 77F Mild , Non-obstx CAD, HTN, mild non obstx carotid plaque, HTN, PPM, PAF admitted with central chest pain which occurred after lifting a wet, heavy blanket. Central in location, reproducible but noted to have T wave changes on ECG so was admitted for further w/u Denies ABEL, nausea, vomiting or diaphoresis. No palps. No syncope. No edema. - History Source History Provided By: Patient, Family Member, Medical Record - Past Medical History Cardio/Vascular: Yes: AFIB, CAD, HTN, Hyperlipdemia, Other (PPM) Gastrointestinal: Yes: Diverticulosis, Hemorrhoids. No: Constipation Musculoskeletal: Yes: Osteoarthritis (R shoulder/injury) - Past Surgical History Past Surgical History: Yes: Colonoscopy, Oopherectomy (right), Permanent Pacemaker, Upper Endoscopy - Alcohol/Substance Use Hx Alcohol Use: No History of Substance Use: reports: None - Smoking History Smoking history: Never smoked Have you smoked in the past 12 months: Yes Aproximately how many cigarettes per day: 0 If you are a former smoker, when did you quit?: 25 yrs ago - Social History ADL: Independent History of Recent Travel: No Home Medications - Allergies Allergies/Adverse Reactions: Allergies Allergy/AdvReac Type Severity Reaction Status Date / Time Penicillins AdvReac Mild Itching Verified 06/21/18 12:13 - Home Medications Home Medications: Ambulatory Orders Sotalol HCl [Betapace -] 80 mg PO BID #28 tablet 06/10/14 Valsartan [Diovan] 160 mg PO DAILY #14 tablet 03/15/15 Diltiazem Cd [Cardizem Cd -] 360 mg PO DAILY #30 cap.cd.24h 08/27/16 Pravastatin Sodium [Pravachol -] 40 mg PO HS 12/30/16 Apixaban [Eliquis -] 5 mg PO BID tablet 11/03/17 Esomeprazole Magnesium [Nexium 24Hr] 20 mg PO DAILY #30 capsule. 12/07/17 Pantoprazole Sodium [Protonix -] 40 mg PO BID #60 tablet.ec 12/25/17 Sucralfate Oral Suspension [Carafate Oral Suspension -] 1 gm PO BID #1 bottle Sucralfate [Carafate -] 1 gm PO BID #30 tablet 12/25/17 Family Disease History - Family Disease History Family History: Unremarkable Review of Systems Findings/Remarks: see HPI - Review of Systems Constitutional: reports: No Symptoms Eyes: reports: No Symptoms HENT: reports: No Symptoms Cardiovascular: reports: Chest Pain Respiratory: reports: No Symptoms Gastrointestinal: reports: No Symptoms Genitourinary: reports: No Symptoms Breasts: reports: No Symptoms Reported Musculoskeletal: reports: No Symptoms Integumentary: reports: No Symptoms Neurological: reports: No Symptoms Endocrine: reports: No Symptoms Hematology/Lymphatic: reports: No Symptoms Psychiatric: reports: No Symptoms - Risk Factors Known Risk Factors: Yes: Hypercholesterolemia, Hypertension Vital Signs: Vital Signs Temperature 98.8 F 08/16/18 19:54 Pulse Rate 72 08/17/18 09:42 Respiratory Rate 18 08/17/18 09:42 Blood Pressure 117/75 08/17/18 09:42 O2 Sat by Pulse Oximetry (%) 97 08/17/18 09:42 Constitutional: Yes: Calm Eyes: Yes: EOM Intact Respiratory: Yes: CTA Bilaterally Gastrointestinal: Yes: Soft (NT) JVD: No Heart Sounds: Yes: S1, S2 (regular) Murmur: Yes: Systolic Murmur, Grade 2 Extremities: Yes: WNL Edema: No Neurological: Yes: Alert, Oriented ...Motor Strength: WNL - Other Data Labs, Other Data: CBC, BMP 08/17/18 05:25 08/17/18 05:25 INR, PTT INR 2.09 (0.83-1.09) H 08/16/18 10:50 Troponin, BNP 08/16/18 08/17/18 23:27 14:15 Troponin I < 0.02 < 0.02 Troponin, BNP 08/16/18 08/17/18 23:27 14:15 Troponin I < 0.02 < 0.02 Atrial paced. NSST changes I, aVL, V5, V6. Echo: Pending Prior Cardiac Procedures: Cardiac Catheterization (non-obstructive 2010) Ejection Fraction %: LVEF > or = 40 % Imaging - Results Chest X-ray: Report Reviewed EKG: Image Reviewed Problem List - Problems (1) Atypical chest pain Code(s): R07.89 - OTHER CHEST PAIN (2) Abnormal ECG Code(s): R94.31 - ABNORMAL ELECTROCARDIOGRAM [ECG] [EKG] (3) Pacemaker Code(s): Z95.0 - PRESENCE OF CARDIAC PACEMAKER (4) Atrial fibrillation Code(s): I48.91 - UNSPECIFIED ATRIAL FIBRILLATION Qualifiers: Atrial fibrillation type: paroxysmal Qualified Code(s): I48.0 - Paroxysmal atrial fibrillation (5) Coronary artery disease Assessment/Plan: NON-OBSTRUCTIVE Code(s): I25.10 - ATHSCL HEART DISEASE OF [place] CORONARY ARTERY W/O ANG PCTRS Qualifiers: Coronary Disease-Associated Artery/Lesion type: [place] artery Assessment/Plan IMP: Atypical CP Nonspecific T wave changes- possibly "T wave memory" repol changes from intermittent pacing Non-obstx CAD PAF on AC (NOAC) REC: 1. 2 sets cardiac enzymes negative 2. Echo for EF assessment , r/o pericardial effusion 3. To complete nuclear stress in AM- had resting images today 4. Cont home meds. Will follow
--- NOTE | 2018-08-17 17:52 | PN ---
Progress Note, Physician Chief Complaint: chest pain History of Present Illness: Previous notes and events reviewed alert and awake NAD denies chest pain, SOB troponin neg x 3 - Current Medication List Current Medications: Active Medications Acetaminophen (Tylenol -) 650 mg PO Q6H PRN PRN Reason: PAIN OR FEVER Last Admin: 08/16/18 20:57 Dose: 650 mg Apixaban (Eliquis -) 5 mg PO BID COUNTS [facility]CLUDE 234 BEDS AT [facility] Last Admin: 08/17/18 10:42 Dose: 5 mg Diltiazem HCl (Cardizem Cd -) 360 mg PO DAILY COUNTS INCLUDE 234 BEDS AT THE [facility] Last Admin: 08/17/18 10:42 Dose: 360 mg Pantoprazole Sodium (Protonix -) 40 mg PO BID COUNTS INCLUDE 234 BEDS AT THE [facility] Last Admin: 08/17/18 10:42 Dose: 40 mg Sotalol HCl (Betapace -) 80 mg PO BID COUNTS INCLUDE 234 BEDS AT THE [facility] Last Admin: 08/17/18 10:42 Dose: 80 mg Valsartan (Diovan -) 160 mg PO DAILY COUNTS INCLUDE 234 BEDS AT THE [facility] Last Admin: 08/17/18 10:42 Dose: 160 mg - Objective Vital Signs: Vital Signs Temperature 98.8 F 08/16/18 19:54 Pulse Rate 72 08/17/18 09:42 Respiratory Rate 18 08/17/18 09:42 Blood Pressure 117/75 08/17/18 09:42 O2 Sat by Pulse Oximetry (%) 97 08/17/18 09:42 Constitutional: Yes: Well Nourished, No Distress, Calm Eyes: Yes: Conjunctiva Clear Neck: Yes: Supple Cardiovascular: Yes: Regular Rate and Rhythm Respiratory: Yes: Regular, CTA Bilaterally Gastrointestinal: Yes: WNL, Normal Bowel Sounds, Soft Musculoskeletal: Yes: Muscle Weakness Extremities: Yes: WNL Edema: No Integumentary: Yes: WNL Neurological: Yes: Alert, Oriented Psychiatric: Yes: Alert, Oriented Labs: CBC, BMP 08/17/18 05:25 08/17/18 05:25 INR, PTT INR 2.09 (0.83-1.09) H 08/16/18 10:50 Problem List - Problems (1) Atypical chest pain Code(s): R07.89 - OTHER CHEST PAIN (2) T wave inversion on electrocardiogram Code(s): R94.31 - ABNORMAL ELECTROCARDIOGRAM [ECG] [EKG] (3) Afib Code(s): I48.91 - UNSPECIFIED ATRIAL FIBRILLATION Qualifiers: Atrial fibrillation type: paroxysmal Qualified Code(s): I48.0 - Paroxysmal atrial fibrillation (4) Coronary artery disease Code(s): I25.10 - ATHSCL HEART DISEASE OF [place] CORONARY ARTERY W/O ANG PCTRS Qualifiers: Coronary Disease-Associated Artery/Lesion type: [place] artery (5) Hyperlipidemia Code(s): E78.5 - HYPERLIPIDEMIA, UNSPECIFIED Qualifiers: Hyperlipidemia type: pure hypercholesterolemia Qualified Code(s): E78.00 - Pure hypercholesterolemia, unspecified; E78.0 - Pure hypercholesterolemia Assessment/Plan -admit to tele unit -cardiology on board -to have nuclear stress test in AM -echo ordered -O2 NC as needed for SOB or SpO2 <90% -
[2018-08-17] MEDS ORDERED: MAG HYDROX/AL HYDROX/SIMETH 30 ML UNIT-DOSE CUP PO PRN (18:10)
[2018-08-17] MEDS ORDERED: MAG HYDROX/AL HYDROX/SIMETH 30 ML UNIT-DOSE CUP ONE (18:30)
--- NOTE | 2018-08-17 18:33 | PN ---
Progress Note (short form) - Note Progress Note: seen with liss allen d/vlad robb will have stress test in am Problem List - Problems (1) Chest pain Code(s): R07.9 - CHEST PAIN, UNSPECIFIED Qualifiers: Ischemic chest pain type: unstable angina pectoris (2) Afib Code(s): I48.91 - UNSPECIFIED ATRIAL FIBRILLATION Qualifiers: Atrial fibrillation type: paroxysmal Qualified Code(s): I48.0 - Paroxysmal atrial fibrillation (3) Coronary artery disease Code(s): I25.10 - ATHSCL HEART DISEASE OF [place] CORONARY ARTERY W/O ANG PCTRS Qualifiers: Coronary Disease-Associated Artery/Lesion type: [place] artery [place] vs. transplanted heart: [place] heart Associated angina: with stable angina Qualified Code(s): I25.118 - Atherosclerotic heart disease of [place] coronary artery with other forms of angina pectoris (4) Hyperlipidemia Code(s): E78.5 - HYPERLIPIDEMIA, UNSPECIFIED Qualifiers: Hyperlipidemia type: pure hypercholesterolemia Qualified Code(s): E78.00 - Pure hypercholesterolemia, unspecified; E78.0 - Pure hypercholesterolemia (5) Hypertension Code(s): I10 - ESSENTIAL (PRIMARY) HYPERTENSION Qualifiers: Hypertension type: essential hypertension Qualified Code(s): I10 - Essential (primary) hypertension (6) Pacemaker Code(s): Z95.0 - PRESENCE OF CARDIAC PACEMAKER (7) T wave inversion on electrocardiogram Code(s): R94.31 - ABNORMAL ELECTROCARDIOGRAM [ECG] [EKG]
[2018-08-17] MEDS: ACETAMINOPHEN 325 MG TABLET (FP) PO PRN (22:37)
[2018-08-18 01:01] VITALS: BMI 24.9
[2018-08-18 07:44] LABS: HEMATOCRIT 31.3 % (32.4-45.2); HEMOGLOBIN 9.9 GM/dL (10.7-15.3); MCH 27.3 pg (25.7-33.7); MCHC 31.6 g/dl (32.0-36.0); MEAN CELL VOLUME 86.4 fl (80-96); MEAN PLT VOLUME 8.9 fl (7.5-11.1); PLATELET COUNT 222 K/MM3 (134-434); RBC 3.62 M/mm3 (3.60-5.2); RDW 16.1 % (11.6-15.6); WHITE BLOOD COUNT 8.9 K/mm3 (4.0-10.0)
--- NOTE | 2018-08-18 08:34 | PN ---
Progress Note, Physician Chief Complaint: feeling well TELE: A Paced. Echo being done - Current Medication List Current Medications: Active Medications Acetaminophen (Tylenol -) 650 mg PO Q6H PRN PRN Reason: PAIN OR FEVER Last Admin: 08/17/18 22:37 Dose: 650 mg Al Hydroxide/Mg Hydroxide (Mylanta Oral Suspension -) 30 ml PO Q6H PRN PRN Reason: DYSPEPSIA Last Admin: 08/17/18 18:32 Dose: 30 ml Apixaban (Eliquis -) 5 mg PO BID [facility] Last Admin: 08/17/18 22:34 Dose: 5 mg Diltiazem HCl (Cardizem Cd -) 360 mg PO DAILY [facility] Last Admin: 08/17/18 10:42 Dose: 360 mg Pantoprazole Sodium (Protonix -) 40 mg PO BID [facility] Last Admin: 08/17/18 22:34 Dose: 40 mg Sotalol HCl (Betapace -) 80 mg PO BID [facility] Last Admin: 08/17/18 22:34 Dose: 80 mg Valsartan (Diovan -) 160 mg PO DAILY [facility] Last Admin: 08/17/18 10:42 Dose: 160 mg - Objective Vital Signs: Vital Signs Temperature 98 F 08/18/18 05:18 Pulse Rate 71 08/18/18 05:18 Respiratory Rate 18 08/18/18 05:18 Blood Pressure 128/53 L 08/18/18 05:18 O2 Sat by Pulse Oximetry (%) 96 08/17/18 21:00 Constitutional: Yes: No Distress Cardiovascular: Yes: Regular Rate and Rhythm (A- paced) Respiratory: Yes: CTA Bilaterally Gastrointestinal: Yes: Soft (NT) Edema: No Neurological: Yes: Alert Labs: CBC, BMP 08/18/18 07:00 INR, PTT INR 2.09 (0.83-1.09) H 08/16/18 10:50 - ....Imaging EKG: Image Reviewed Problem List - Problems (1) Atypical chest pain Code(s): R07.89 - OTHER CHEST PAIN (2) Abnormal ECG Code(s): R94.31 - ABNORMAL ELECTROCARDIOGRAM [ECG] [EKG] (3) Pacemaker Code(s): Z95.0 - PRESENCE OF CARDIAC PACEMAKER (4) Atrial fibrillation Code(s): I48.91 - UNSPECIFIED ATRIAL FIBRILLATION Qualifiers: Atrial fibrillation type: paroxysmal Qualified Code(s): I48.0 - Paroxysmal atrial fibrillation (5) Coronary artery disease Code(s): I25.10 - ATHSCL HEART DISEASE OF [place] CORONARY ARTERY W/O ANG PCTRS Qualifiers: Coronary Disease-Associated Artery/Lesion type: [place] artery Assessment/Plan IMP: Atypical CP Nonspecific T wave changes- possibly "T wave memory" repol changes from intermittent pacing Non-obstx CAD PAF on AC (NOAC) REC: 1. 2 sets cardiac enzymes negative 2. Echo for EF assessment , r/o pericardial effusion 3. To complete nuclear stress today- had resting images today 4. Cont home meds. If stress WNL, ok d/c home Has PPM interrogation scheduled in my office in few weeks
[2018-08-18 08:37] LABS: ALBUMIN 3.1 g/dl (3.4-5.0); ALK PHOS 76 U/L (45-117); ANION GAP 6 MMOL/L (8-16); BILIRUBIN,TOTAL 0.4 mg/dL (0.2-1); BLOOD UREA NITROGEN 17 mg/dL (7-18); CALCIUM 8.8 mg/dL (8.5-10.1); CHLORIDE 104 mmol/L (98-107); CO2 28 mmol/L (21-32); CREATININE 0.8 mg/dL (0.55-1.3); GLUCOSE,RANDOM 99 mg/dL (74-106); POTASSIUM 4.8 mmol/L (3.5-5.1); SGOT/AST 14 U/L (15-37); SGPT/ALT 17 U/L (13-61); SODIUM 138 mmol/L (136-145); TOT PROT 6.5 g/dl (6.4-8.2)
[2018-08-18] MEDS ORDERED: REGADENOSON 0.4 MG/5 ML PRE-FILLED SYRINGE IVPUSH ONE ×2 (09:15→09:31)
[2018-08-18] MEDS: VALSARTAN 160 MG TABLET (UD) PO SCH (12:07)
[2018-08-18] MEDS: PANTOPRAZOLE 40 MG TABLET (FP) PO SCH ×2 (12:07→21:15)
[2018-08-18] MEDS: SOTALOL HCL 80 MG TABLET (FP) PO SCH ×2 (12:07→21:14)
[2018-08-18] MEDS: APIXABAN 5 MG TABLET PO SCH (12:07)
--- NOTE | 2018-08-18 14:34 | ECHO ---
Name: GEE JEROME Exam:Adult Echocardiogram Study Date: 08/18/2018 07:56 AM Age: 77 yrs Reason For Study: Chest pain Height: 64 in Weight: 150 lb BSA: 1.7 m2 MMode/2D Measurements & Calculations IVSd: 1.5 cm Ao root diam: 2.9 cm LVIDd: 4.1 cm LA dimension: 4.0 cm LVIDs: 2.8 cm LVPWd: 1.4 cm EDV(Teich): 73.4 ml LVOT diam: 2.0 cm ESV(Teich): 28.7 ml LAV (MOD-bp): 64.3 ml Doppler Measurements & Calculations MV V2 max: 182.4 cm/sec MV E max michel: 102.0 cm/sec MV max P.3 mmHg MV A max michel: 155.9 cm/sec MV V2 mean: 116.4 cm/sec MV E/A: 0.65 MV mean P.0 mmHg MV V2 VTI: 52.0 cm MV dec slope: 607.9 cm/sec2 Ao V2 max: 260.6 cm/sec Ao max P.2 mmHg Ao V2 mean: 164.7 cm/sec Ao mean P.8 mmHg Ao V2 VTI: 57.4 cm AI P1/2t: 481.6 msec AI max michel: 417.9 cm/sec TR max michel: 243.0 cm/sec AI max P.1 mmHg TR max P.2 mmHg AI dec slope: 254.1 cm/sec2 Med Peak E' Michel: 2.6 cm/sec PI Vmax: 86.9 cm/sec Med E/e': 39.1 Lat Peak E' Michel: 3.0 cm/sec Lat E/e': 33.5 Procedure A complete two-dimensional transthoracic echocardiogram was performed (2D, M-mode, Doppler and color flow Doppler). Left Ventricle There is moderate concentric left ventricular hypertrophy. The left ventricular ejection fraction is normal. Ejection Fraction = 60-65%. The left ventricular wall motion is normal. Right Ventricle The right ventricle is normal in size and function. There is a pacemaker lead in the right ventricle. Atria The left atrium is mildly dilated. Right atrial size is normal. There is a catheter/pacemaker lead se en in the right atrium. Mitral Valve There is mild mitral regurgitation. Tricuspid Valve There is trace tricuspid regurgitation. Right ventricular systolic pressure is normal. Aortic Valve The aortic valve is trileaflet. Mild valvular aortic stenosis. Mild to moderate aortic regurgitation. Pulmonic Valve Trace pulmonic valvular regurgitation. Great Vessels The aortic root is normal size. Pericardium/Pleura Small pericardial effusion (<1cm). There are no echocardiographic indications of cardiac tamponade. Interpretation Summary There is moderate concentric left ventricular hypertrophy. The left ventricular ejection fraction is normal. The right ventricle is normal in size and function. There is a pacemaker lead in the right ventricle. The left atrium is mildly dilated. There is a catheter/pacemaker lead seen in the right atrium. There is mild mitral regurgitation. There is trace tricuspid regurgitation. Mild valvular aortic stenosis. Mild to moderate aortic regurgitation. Trace pulmonic valvular regurgitation. Small pericardial effusion (<1cm) MD Sher Marques 08/18/2018 02:33 PM
--- NOTE | 2018-08-18 16:59 | PN ---
Progress Note, Physician Chief Complaint: PATIENT HAD STRESS TEST TODAY FINDINGS SUSPICIOUS FOR CARDIAC EVENT - Current Medication List Current Medications: Active Medications Acetaminophen (Tylenol -) 650 mg PO Q6H PRN PRN Reason: PAIN OR FEVER Last Admin: 08/17/18 22:37 Dose: 650 mg Al Hydroxide/Mg Hydroxide (Mylanta Oral Suspension -) 30 ml PO Q6H PRN PRN Reason: DYSPEPSIA Last Admin: 08/17/18 18:32 Dose: 30 ml Apixaban (Eliquis -) 5 mg PO BID [facility] Last Admin: 08/18/18 12:07 Dose: 5 mg Diltiazem HCl (Cardizem Cd -) 360 mg PO DAILY [facility] Last Admin: 08/18/18 12:07 Dose: 360 mg Pantoprazole Sodium (Protonix -) 40 mg PO BID [facility] Last Admin: 08/18/18 12:07 Dose: 40 mg Sotalol HCl (Betapace -) 80 mg PO BID [facility] Last Admin: 08/18/18 12:07 Dose: 80 mg Valsartan (Diovan -) 160 mg PO DAILY [facility] Last Admin: 08/18/18 12:07 Dose: 160 mg - Objective Vital Signs: Vital Signs Temperature 98.1 F 08/18/18 14:16 Pulse Rate 60 08/18/18 14:16 Respiratory Rate 18 08/18/18 14:16 Blood Pressure 115/55 L 08/18/18 14:16 O2 Sat by Pulse Oximetry (%) 96 08/18/18 09:00 Constitutional: Yes: Mild Distress Eyes: Yes: WNL HENT: Yes: WNL Neck: Yes: WNL Cardiovascular: Yes: Pulse Irregular Respiratory: Yes: WNL Gastrointestinal: Yes: WNL Musculoskeletal: Yes: WNL Extremities: Yes: WNL Edema: Yes ...Motor Strength: WNL Psychiatric: Yes: WNL Labs: CBC, BMP 08/18/18 07:00 08/18/18 06:00 INR, PTT INR 2.09 (0.83-1.09) H 08/16/18 10:50 Problem List - Problems (1) Chest pain Code(s): R07.9 - CHEST PAIN, UNSPECIFIED Qualifiers: Ischemic chest pain type: unstable angina pectoris (2) Afib Code(s): I48.91 - UNSPECIFIED ATRIAL FIBRILLATION Qualifiers: Atrial fibrillation type: paroxysmal Qualified Code(s): I48.0 - Paroxysmal atrial fibrillation (3) Coronary artery disease Code(s): I25.10 - ATHSCL HEART DISEASE OF [place] CORONARY ARTERY W/O ANG PCTRS Qualifiers: Coronary Disease-Associated Artery/Lesion type: [place] artery [place] vs. transplanted heart: [place] heart Associated angina: with stable angina Qualified Code(s): I25.118 - Atherosclerotic heart disease of [place] coronary artery with other forms of angina pectoris (4) Hyperlipidemia Code(s): E78.5 - HYPERLIPIDEMIA, UNSPECIFIED Qualifiers: Hyperlipidemia type: pure hypercholesterolemia Qualified Code(s): E78.00 - Pure hypercholesterolemia, unspecified; E78.0 - Pure hypercholesterolemia (5) Hypertension Code(s): I10 - ESSENTIAL (PRIMARY) HYPERTENSION Qualifiers: Hypertension type: essential hypertension Qualified Code(s): I10 - Essential (primary) hypertension (6) Pacemaker Code(s): Z95.0 - PRESENCE OF CARDIAC PACEMAKER (7) T wave inversion on electrocardiogram Code(s): R94.31 - ABNORMAL ELECTROCARDIOGRAM [ECG] [EKG] Assessment/Plan TWAVE INVERSION TO LATER LEADS ARE NEW STRESS TEST SUSPICIOUS FOR CARDIAC EVENT WILL D/W DR TOPETE FOR TRANSFER TO CARDIAC ADDICTIONS COUNSELOR WILL MONITOR FOR NOW ON TELEMETRY HERE CHECK LABS WITH SERIAL ENZYMES FIRST SET NEGATIVE 02 SUPPORT PATIENT IS COMFORTABLE AT THIS TIME
[2018-08-18] MEDS: ACETAMINOPHEN 325 MG TABLET (FP) PO PRN (18:37)
[2018-08-18] MEDS ORDERED: APIXABAN 5 MG TABLET PO ONE (22:00)
--- NOTE | 2018-08-19 09:07 | PN ---
Progress Note, Physician Chief Complaint: TELE: no sig arrhythmias - Current Medication List Current Medications: Active Medications Acetaminophen (Tylenol -) 650 mg PO Q6H PRN PRN Reason: PAIN OR FEVER Last Admin: 08/18/18 18:37 Dose: 650 mg Al Hydroxide/Mg Hydroxide (Mylanta Oral Suspension -) 30 ml PO Q6H PRN PRN Reason: DYSPEPSIA Last Admin: 08/17/18 18:32 Dose: 30 ml Apixaban (Eliquis -) 5 mg PO BID [facility] Last Admin: 08/18/18 12:07 Dose: 5 mg Diltiazem HCl (Cardizem Cd -) 360 mg PO DAILY [facility] Last Admin: 08/18/18 12:07 Dose: 360 mg Isosorbide Dinitrate (Isordil -) 5 mg PO BID [facility] Pantoprazole Sodium (Protonix -) 40 mg PO BID [facility] Last Admin: 08/18/18 21:15 Dose: 40 mg Sotalol HCl (Betapace -) 80 mg PO BID [facility] Last Admin: 08/18/18 21:14 Dose: 80 mg Valsartan (Diovan -) 160 mg PO DAILY [facility] Last Admin: 08/18/18 12:07 Dose: 160 mg - Objective Vital Signs: Vital Signs Temperature 97.9 F 08/19/18 05:49 Pulse Rate 66 08/19/18 05:49 Respiratory Rate 18 08/19/18 05:49 Blood Pressure 116/43 L 08/19/18 05:49 O2 Sat by Pulse Oximetry (%) 95 08/18/18 21:00 Constitutional: Yes: No Distress Cardiovascular: Yes: Regular Rate and Rhythm (paced) Respiratory: Yes: CTA Bilaterally (no rales or wheezing) Gastrointestinal: Yes: Soft Edema: No Neurological: Yes: Alert Labs: CBC, BMP 08/18/18 07:00 08/18/18 06:00 INR, PTT INR 2.09 (0.83-1.09) H 08/16/18 10:50 Laboratory Tests 08/16/18 08/17/18 08/18/18 23:27 14:15 06:00 WBC Hgb Plt Count Sodium 138 Potassium 4.8 BUN 17 Creatinine 0.8 Creatine Kinase 31 38 Troponin I < 0.02 < 0.02 08/18/18 07:00 WBC 8.9 Hgb 9.9 L Plt Count 222 D Sodium Potassium BUN Creatinine Creatine Kinase Troponin I - ....Imaging EKG: Image Reviewed Problem List - Problems (1) Atypical chest pain Code(s): R07.89 - OTHER CHEST PAIN (2) Abnormal ECG Code(s): R94.31 - ABNORMAL ELECTROCARDIOGRAM [ECG] [EKG] (3) Pacemaker Code(s): Z95.0 - PRESENCE OF CARDIAC PACEMAKER (4) Atrial fibrillation Code(s): I48.91 - UNSPECIFIED ATRIAL FIBRILLATION Qualifiers: Atrial fibrillation type: paroxysmal Qualified Code(s): I48.0 - Paroxysmal atrial fibrillation (5) Coronary artery disease Code(s): I25.10 - ATHSCL HEART DISEASE OF [place] CORONARY ARTERY W/O ANG PCTRS Qualifiers: Coronary Disease-Associated Artery/Lesion type: [place] artery Assessment/Plan IMP: Atypical CP Nonspecific T wave changes- possibly "T wave memory" repol changes from intermittent pacing Non-obstx CAD PAF on AC (NOAC) REC: Stress MPI with mild anterior ischemia. Above d/w patient and family at length. Recommended [facility] for definitive assessment of coronary anatomy. Risks, benefits of procedure discussed in detail. Risks of undx CAD including MD , explained. Patient has refused cath and prefers to continue with medical Rx. Will add Isordil. Will need close f/u D/w PMD
[2018-08-19] MEDS: SOTALOL HCL 80 MG TABLET (FP) PO SCH (09:50)
[2018-08-19] MEDS: VALSARTAN 160 MG TABLET (UD) PO SCH (09:50)
[2018-08-19] MEDS: PANTOPRAZOLE 40 MG TABLET (FP) PO SCH (09:50)
[2018-08-19 09:52] VITALS: BP 128/56; PULSE 61; TEMP 98.1
[2018-08-19] MEDS ORDERED: ISOSORBIDE DINITRATE 5 MG TABLET PO SCH (10:00)
[2018-08-19] MEDS: APIXABAN 5 MG TABLET PO SCH (10:25)
[2018-08-19] MEDS: ACETAMINOPHEN 325 MG TABLET (FP) PO PRN (10:30)
== END 2018-08-19 12:10 | disposition home or self-care (01) | DRG 303 ==
LOC: JER 09:33 → JERBED 12:46 → J4S 08-17 19:00
PROVIDERS: ADMIT Family Medicine; ATTEND Family Medicine
DX: I25.10 Atherosclerotic heart disease of native coronary artery without angina pectoris (principal); R07.89 Other chest pain; I10 Essential (primary) hypertension; K76.0 Fatty (change of) liver, not elsewhere classified; K29.70 Gastritis, unspecified, without bleeding; E78.00 Pure hypercholesterolemia, unspecified; K57.90 Diverticulosis of intestine, part unspecified, without perforation or abscess without bleeding; M19.011 Primary osteoarthritis, right shoulder; K64.9 Unspecified hemorrhoids; I48.0 Paroxysmal atrial fibrillation; R94.31 Abnormal electrocardiogram [ECG] [EKG]; Z95.0 Presence of cardiac pacemaker; Z85.828 Personal history of other malignant neoplasm of skin; Z95.1 Presence of aortocoronary bypass graft
CPT/HCPCS: 36415; 71045-TC-FY; 78452-TC; 80053; 80061; 81003; 81015; 82550; 83036; 83690; 83721; 83880; 84443; 84484; 85025; 85027; 85610; 85730; 87086; 93005; 93010; 93017; 93306-TC; 99285-25; A9502; J2785

== ENCOUNTER 2018-09-29 11:15 | Emergency (ER) | payer OTHER ==
[2018-09-29 11:30] VITALS: BP 124/50; PULSE 71; TEMP 98.6; BMI 24.7
--- NOTE | 2018-09-29 11:39 | PDOC ---
History of Present Illness - General Chief Complaint: Bleeding from Anus Stated Complaint: RECTAL BLEED Time Seen by Provider: 09/29/18 11:39 - History of Present Illness Initial Comments: 09/29/18 12:56 Ms. Nicholas is a 78 yo female w/ pmh of CABG (2011), CAD, HTN, and Afib on eliquis who presents for evaluation of perceived weakness for the past 4-5 days and additionally noted blood on her stool yesterday and this morning. Patient reports she was placed on new medications last week (Suprax and Pyridium) by PCP however is not sure why. Reports that weakness started following this. Became concerned with blood on stool and elected to present to ED. The patient denies chest pain, shortness of breath, headache and dizziness. Denies fever, chills, nausea, vomit, diarrhea and constipation. Denies dysuria, frequency, urgency and hematuria. Past History - Past Medical History Allergies/Adverse Reactions: Allergies Allergy/AdvReac Type Severity Reaction Status Date / Time Penicillins AdvReac Mild Itching Verified 06/21/18 12:13 Home Medications: Ambulatory Orders Sotalol HCl [Betapace -] 80 mg PO BID #28 tablet 06/10/14 Valsartan [Diovan] 160 mg PO DAILY #14 tablet 03/15/15 Diltiazem Cd [Cardizem Cd -] 360 mg PO DAILY #30 cap.cd.24h 08/27/16 Pravastatin Sodium [Pravachol -] 40 mg PO HS 12/30/16 Apixaban [Eliquis -] 5 mg PO BID tablet 11/03/17 Esomeprazole Magnesium [Nexium 24Hr] 20 mg PO DAILY #30 capsule.dr 12/07/17 Pantoprazole Sodium [Protonix -] 40 mg PO BID #60 tablet.ec 12/25/17 Sucralfate Oral Suspension [Carafate Oral Suspension -] 1 gm PO BID #1 bottle Sucralfate [Carafate -] 1 gm PO BID #30 tablet 12/25/17 Isosorbide Dinitrate [Isordil -] 5 mg PO BID #60 tablet 08/19/18 Sotalol HCl [Betapace -] 80 mg PO BID tablet 08/19/18 Anemia: No Asthma: No Cancer: Yes (SKIN CA- EARLOBE) Cardiac Disorders: Yes (AFIB,) CVA: No COPD: No CHF: No Dementia: No Diabetes: Yes GI Disorders: Yes (gastritis) Disorders: No HTN: Yes Hypercholesterolemia: Yes Liver Disease: (FATTY LIVER) Seizures: No Thyroid Disease: No - Surgical History Abdominal Surgery: No Appendectomy: No Cardiac Surgery: Yes (CABG) Cholecystectomy: No Lung Surgery: No Neurologic Surgery: No Orthopedic Surgery: Yes - Family Disease History Family Disease History: Heart Disease: Father - Immunization History Immunization Up to Date: Yes - Suicide/Smoking/Psychosocial Hx Smoking Status: Yes Smoking History: Never smoked Have you smoked in the past 12 months: No Number of Cigarettes Smoked Daily: 0 If you are a former smoker, when did you quit?: 25 yrs ago Information on smoking cessation initiated: No Hx Alcohol Use: No Drug/Substance Use Hx: No Substance Use Type: None Hx Substance Use Treatment: No Review of Systems - Review of Systems Comments:: 09/29/18 13:32 GENERAL/CONSTITUTIONAL: +Generalized weakness. No fever or chills. HEAD, EYES, EARS, NOSE AND THROAT: No change in vision. No ear pain or discharge. No sore throat. CARDIOVASCULAR: No chest pain or shortness of breath RESPIRATORY: No cough, wheezing, or hemoptysis. GASTROINTESTINAL: No nausea, vomiting, diarrhea or constipation. GENITOURINARY: No dysuria, frequency, or change in urination. MUSCULOSKELETAL: No joint or muscle swelling or pain. No neck or back pain. SKIN: No rash NEUROLOGIC: No headache, vertigo, loss of consciousness, or change in strength/ sensation. ENDOCRINE: No increased thirst. No abnormal weight change HEMATOLOGIC/LYMPHATIC: No anemia, easy bleeding, or history of blood clots. ALLERGIC/IMMUNOLOGIC: No hives or skin allergy. *Physical Exam - Vital Signs Last Vital Signs Temp Pulse Resp BP Pulse Ox 98.6 F 71 16 124/50 L 100 09/29/18 11:29 09/29/18 11:29 09/29/18 11:29 09/29/18 11:29 09/29/18 11:29 - Physical Exam Comments: 09/29/18 13:32 GENERAL: Awake, alert, and fully oriented, in no acute distress HEAD: No signs of trauma, normocephalic, atraumatic EYES: PERRLA, EOMI, sclera anicteric, conjunctiva clear ENT: Auricles normal inspection, hearing grossly normal, nares patent, oropharynx clear without exudates. Moist mucosa NECK: Normal ROM, supple, no lymphadenopathy, JVD, or masses LUNGS: No distress, speaks full sentences, clear to auscultation bilaterally HEART: Regular rate and rhythm, normal S1 and S2, no murmurs, rubs or gallops, peripheral pulses normal and equal bilaterally. ABDOMEN: Soft, nontender, normoactive bowel sounds. No guarding, no rebound. No masses EXTREMITIES: Normal inspection, Normal range of motion, no edema. No clubbing or cyanosis. NEUROLOGICAL: Cranial nerves II through XII grossly intact. Normal speech, normal gait, no focal sensorimotor deficits SKIN: Warm, Dry, normal turgor, no rashes or lesions noted. RECTAL: No external hemorrhoids noted, good tone, no blood noted on glove during exam. Moderate Sedation - Procedure Monitoring Vital Signs: Procedure Monitoring Vital Signs Temperature 98.6 F 09/29/18 11:29 Pulse Rate 71 09/29/18 11:29 Respiratory Rate 16 09/29/18 11:29 Blood Pressure 124/50 L 09/29/18 11:29 O2 Sat by Pulse Oximetry (%) 100 09/29/18 11:29 ED Treatment Course - LABORATORY CBC & Chemistry Diagram: 09/29/18 12:20 09/29/18 12:20 Medical Decision Making - Medical Decision Making 09/29/18 14:32 Ms. Nicholas is a 78 yo female w/ pmh as described who presents for evaluation of generalized weakness and small blood noted on stool. Patient extremely well appearing and strength intact upon exam. Labs grossly wnl as below. No concern for acute process at this time. Will consult with PCP and discharge for further outpatient follow-up. 09/29/18 14:46 Discharging patient to home. Will update PCP upon patient presentation. 09/29/18 14:57 Discussed patient with PCP covering provider who will relay to PCP for outpatient F/U. Laboratory Results - last 24 hr 09/29/18 09/29/18 09/29/18 12:20 12:20 12:20 WBC 9.2 RBC 4.13 Hgb 11.4 Hct 35.0 MCV 84.7 MCH 27.5 MCHC 32.4 RDW 16.0 H Plt Count 277 D MPV 8.5 Absolute Neuts (auto) 6.2 Neutrophils % 67.1 Lymphocytes % 19.2 Monocytes % 10.3 H Eosinophils % 2.4 D Basophils % 1.0 Nucleated RBC % 0 PT with INR 16.60 H INR 1.40 H Sodium 141 Potassium 4.7 Chloride 106 Carbon Dioxide 29 Anion Gap 5 L BUN 16 Creatinine 0.7 Creat Clearance w eGFR > 60 Random Glucose 95 Calcium 9.4 Total Bilirubin 0.3 AST 15 ALT 13 Alkaline Phosphatase 89 Total Protein 7.5 Albumin 3.6 Stool Occult Blood 09/29/18 13:20 WBC RBC Hgb Hct MCV MCH MCHC RDW Plt Count MPV Absolute Neuts (auto) Neutrophils % Lymphocytes % Monocytes % Eosinophils % Basophils % Nucleated RBC % PT with INR INR Sodium Potassium Chloride Carbon Dioxide Anion Gap BUN Creatinine Creat Clearance w eGFR Random Glucose Calcium Total Bilirubin AST ALT Alkaline Phosphatase Total Protein Albumin Stool Occult Blood Negative *DC/Admit/Observation/Transfer Diagnosis at time of Disposition: Symptom of blood in stool - Discharge Dispostion Disposition: HOME - Referrals Referrals: Ellen Carbone MD [Primary Care Provider] - - Patient Instructions Printed Discharge Instructions: DI for Hemorrhoids Additional Instructions: You were evaluated today in the ER for your symptoms. We evaluated you with labs as well checked your stool for blood. No concerning findings were found at this time. Please follow-up with primary care provider for further evaluation. Return to ER if any fever, chills, further blood on stool, or other concerning symptoms. - Post Discharge Activity
--- NOTE | 2018-09-29 12:17 | PDOC ---
Attending Attestation - HPI HPI: 09/29/18 13:41 The patient is a 78 year old female with a significant past medical history of HTN, PAF (on Eliquis), HLD, non-obstructive CAD, non-obstructive carotid plaque , who presents to the emergency department today complaining of rectal bleeding. She reports the presence of blood when wiping. Patient denies any pain or change in appetite. Patient states a recent colonoscopy of last December 2017. The patient denies chest pain, shortness of breath, headache and dizziness. Denies fever, chills, nausea, vomit, diarrhea and constipation. Denies dysuria, frequency, urgency and hematuria. Allergies: NKA PCP: Dr. Carbone GI: Dr. Gamboa - Physicial Exam PE: 09/29/18 13:41 GENERAL: The patient is in no acute distress. HEAD: Normal with no signs of trauma. EYES: PERRLA, EOMI, sclera anicteric, conjunctiva clear. ENT: Ears normal, nares patent, oropharynx clear without exudates. Moist mucous membranes. NECK: Normal range of motion, supple without lymphadenopathy, JVD, or masses. LUNGS: Breath sounds equal, clear to auscultation bilaterally. No wheezes, and no crackles. HEART:Regular rate and rhythm, normal S1 and S2 without murmur, rub or gallop. ABDOMEN: Soft, nontender, normoactive bowel sounds. No guarding, no rebound. No masses palpable. RECTAL: Exam as per resident note. EXTREMITIES: Normal range of motion, no edema. No clubbing or cyanosis. No erythema, or tenderness. NEUROLOGICAL: Cranial nerves II through XII grossly intact. Normal speech. No focal neurological deficits. MUSCULOSKELETAL: Back non-tender to palpation, no CVA tenderness SKIN: Warm, Dry, normal turgor, no rashes or lesions noted. <Diandra Dong - Last Filed: 09/29/18 13:43> - Resident Resident Name: Homero Wyatt - ED Attending Attestation I have performed the following: I have examined & evaluated the patient, The case was reviewed & discussed with the resident, I agree w/resident's findings & plan, Exceptions are as noted - Medical Decision Making 09/29/18 14:36 Laboratory Tests 08/18/18 08/18/18 09/29/18 06:00 07:00 12:20 WBC 8.9 9.2 Hgb 9.9 L 11.4 Hct 31.3 L 35.0 Plt Count 222 D 277 D INR Sodium Potassium Chloride Carbon Dioxide BUN 17 Creatinine 0.8 Stool Occult Blood 09/29/18 09/29/18 09/29/18 12:20 12:20 13:20 WBC Hgb Hct Plt Count INR 1.40 H Sodium 141 Potassium 4.7 Chloride 106 Carbon Dioxide 29 BUN 16 Creatinine 0.7 Stool Occult Blood Negative PT noted rectal bleeding today after a bowel movement when she wiped Toilet bowl not full of blood No lightheadedness or dizziness No syncope No vomiting or nausea Tolerating po Will discharge to home Follow up with PMD Return to the ER for any other concerns or complaints <Nickie Corral - Last Filed: 09/29/18 14:48> Attestations - Attestations 09/29/18 13:42 Documentation prepared by Diandra Dong, acting as medical representative for Nickie Corral MD. <Diandra Dong - Last Filed: 09/29/18 13:43>
[2018-09-29 13:36] LABS: EOS % 2.4 % (0-4.5); HEMOGLOBIN 11.4 GM/dL (10.7-15.3); LYMPH % 19.2 % (8-40); MCH 27.5 pg (25.7-33.7); MCHC 32.4 g/dl (32.0-36.0); MEAN CELL VOLUME 84.7 fl (80-96); MEAN PLT VOLUME 8.5 fl (7.5-11.1); MONO % 10.3 % (3.8-10.2); NEUT % 67.1 % (42.8-82.8); PLATELET COUNT 277 K/MM3 (134-434); RBC 4.13 M/mm3 (3.60-5.2); WHITE BLOOD COUNT 9.2 K/mm3 (4.0-10.0)
[2018-09-29 13:57] LABS: ALBUMIN 3.6 g/dl (3.4-5.0); ALK PHOS 89 U/L (45-117); ANION GAP 5 MMOL/L (8-16); BILIRUBIN,TOTAL 0.3 mg/dL (0.2-1); BLOOD UREA NITROGEN 16 mg/dL (7-18); CALCIUM 9.4 mg/dL (8.5-10.1); CHLORIDE 106 mmol/L (98-107); CO2 29 mmol/L (21-32); CREATININE 0.7 mg/dL (0.55-1.3); GLUCOSE,RANDOM 95 mg/dL (74-106); POTASSIUM 4.7 mmol/L (3.5-5.1); SGOT/AST 15 U/L (15-37); SGPT/ALT 13 U/L (13-61); SODIUM 141 mmol/L (136-145); TOT PROT 7.5 g/dl (6.4-8.2)
[2018-09-29 14:05] LABS: INR 1.4 (0.83-1.09); PROTHROMBIN TIME (PATIENT) 16.6 SEC (9.7-13.0)
--- NOTE | 2018-09-29 16:41 | EKG ---
Test Reason : Blood Pressure : / mmHG Vent. Rate : 065 BPM Atrial Rate : 065 BPM P-R Int : 232 ms QRS Dur : 138 ms QT Int : 486 ms P-R-T Axes : 081 -14 129 degrees QTc Int : 505 ms occasional atrial pacing SINUS RHYTHM WITH SINUS ARRHYTHMIA WITH 1ST DEGREE A-V BLOCK LEFT BUNDLE BRANCH BLOCK ABNORMAL ECG Confirmed by ANTONELLA CALLOWAY MD ([id number]) on 09/29/2018 4:40:32 PM Referred By: Confirmed By:ANTONELLA CALLOWAY MD
== END 2018-09-29 14:50 | disposition home or self-care (01) ==
LOC: JER 11:15
DX: K92.1 Melena (principal); I25.10 Atherosclerotic heart disease of native coronary artery without angina pectoris; I10 Essential (primary) hypertension; Z95.1 Presence of aortocoronary bypass graft; E78.00 Pure hypercholesterolemia, unspecified; E11.9 Type 2 diabetes mellitus without complications; Z85.828 Personal history of other malignant neoplasm of skin
CPT/HCPCS: 36415; 80053; 82272; 85025; 85610; 93005; 93010; 99283-25

== ENCOUNTER 2019-05-09 13:56 | Emergency (ER) | payer OTHER ==
--- NOTE | 2019-05-09 14:09 | PDOC ---
Rapid Medical Evaluation Medical Evaluation: Allergies Allergy/AdvReac Type Severity Reaction Status Date / Time Penicillins AdvReac Mild Itching Verified 06/21/18 12:13 I have performed a brief in-person evaluation of this patient. The patient presents with a chief complaint of: hx HTN, PAF (on Eliquis), HLD, non-obstructive CAD, non-obstructive carotid plaque presents c/o back pain and dry cough x 3days; also with congestion, sneezing; denies abd pain, vomiting, diarrhea; states chest hurt when coughing Pertinent physical exam findings: In nad, lungs clear, states all of her back hurts I have ordered the following: Labs, urine, cxr The patient will proceed to the ED for further evaluation. 05/09/19 14:05
[2019-05-09 14:11] VITALS: BP 118/91; PULSE 61; TEMP 98.3; BMI 25.7
[2019-05-09 14:46] LABS: BASO % 1.3 % (0-2.0); EOS % 2.3 % (0-4.5); HEMATOCRIT 34.4 % (32.4-45.2); HEMOGLOBIN 11.3 GM/dL (10.7-15.3); MCH 29.1 pg (25.7-33.7); MCHC 32.8 g/dl (32.0-36.0); MEAN CELL VOLUME 88.7 fl (80-96); MONO % 10.8 % (3.8-10.2); NEUT % 67.6 % (42.8-82.8); PLATELET COUNT 228 K/MM3 (134-434); RBC 3.87 M/mm3 (3.60-5.2); RDW 14.9 % (11.6-15.6); WHITE BLOOD COUNT 10.2 K/mm3 (4.0-10.0)
[2019-05-09 15:22] LABS: ALBUMIN 3.4 g/dl (3.4-5.0); ALK PHOS 77 U/L (45-117); ANION GAP 8 MMOL/L (8-16); BILIRUBIN,TOTAL 0.2 mg/dL (0.2-1); BLOOD UREA NITROGEN 15.6 mg/dL (7-18); CALCIUM 9.1 mg/dL (8.5-10.1); CHLORIDE 104 mmol/L (98-107); CO2 27 mmol/L (21-32); CREATININE 0.7 mg/dL (0.55-1.3); GLUCOSE,RANDOM 98 mg/dL (74-106); POTASSIUM 4.2 mmol/L (3.5-5.1); SGOT/AST 20 U/L (15-37); SGPT/ALT 17 U/L (13-61); SODIUM 138 mmol/L (136-145); TOT PROT 7.2 g/dl (6.4-8.2)
--- NOTE | 2019-05-09 16:28 | EKG ---
Test Reason : Blood Pressure : / mmHG Vent. Rate : 060 BPM Atrial Rate : 060 BPM P-R Int : 280 ms QRS Dur : 140 ms QT Int : 518 ms P-R-T Axes : 040 -15 174 degrees QTc Int : 518 ms Atrial-paced rhythm with prolonged AV conduction LEFT BUNDLE BRANCH BLOCK ABNORMAL ECG WHEN COMPARED WITH ECG OF 29-SEP-2018 11:31, ELECTRONIC ATRIAL PACEMAKER HAS REPLACED SINUS RHYTHM Confirmed by Juan Alberto Galdamez ([id number]) on 05/09/2019 4:28:11 PM Referred By: Confirmed By:Juan Alberto Galdamez
--- NOTE | 2019-05-09 16:31 | PDOC ---
History of Present Illness - General Chief Complaint: Cold Symptoms Stated Complaint: BACK PAIN Time Seen by Provider: 05/09/19 14:05 History Source: Patient Exam Limitations: No Limitations - History of Present Illness Initial Comments: 05/09/19 16:06 78-year-old female with history of COPD presents to ED with nasal congestion, sneezing and cough. Patient denies fever but states did have achy joints yesterday and so took Tylenol with good effect. Patient has no other complaints at this time. 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 Is this a multiple visit Asthma Patient?: No Timing/Duration: reports: yesterday Severity: reports: mild Possible Cause: Yes: occasional episodes Modifying Factors: improves with: coughing Associated Symptoms: reports: cough, muscle aches, nasal congestion Past History - Travel Traveled outside of the country in the last 30 days: No Close contact w/someone who was outside of country & ill: No - Past Medical History Allergies/Adverse Reactions: Allergies Allergy/AdvReac Type Severity Reaction Status Date / Time Penicillins AdvReac Mild Itching Verified 05/09/19 14:11 Home Medications: Ambulatory Orders Sotalol HCl [Betapace -] 80 mg PO BID #28 tablet 06/10/14 Valsartan [Diovan] 160 mg PO DAILY #14 tablet 03/15/15 Diltiazem Cd [Cardizem Cd -] 360 mg PO DAILY #30 cap.cd.24h 08/27/16 Pravastatin Sodium [Pravachol -] 40 mg PO HS 12/30/16 Apixaban [Eliquis -] 5 mg PO BID tablet 11/03/17 Esomeprazole Magnesium [Nexium 24Hr] 20 mg PO DAILY #30 capsule. 12/07/17 Pantoprazole Sodium [Protonix -] 40 mg PO BID #60 tablet.ec 12/25/17 Sucralfate Oral Suspension [Carafate Oral Suspension -] 1 gm PO BID #1 bottle Sucralfate [Carafate -] 1 gm PO BID #30 tablet 12/25/17 Isosorbide Dinitrate [Isordil] 5 mg PO BID #60 tablet 08/19/18 Sotalol HCl [Betapace -] 80 mg PO BID tablet 08/19/18 Anemia: No Asthma: No Cancer: Yes (SKIN CA- EARLOBE) Cardiac Disorders: Yes (CAD, P A-FIB,CAROTID PLAQUE) CVA: No COPD: No CHF: No Dementia: No Diabetes: No GI Disorders: Yes (gastritis) Disorders: No HTN: Yes Hypercholesterolemia: Yes Liver Disease: (FATTY LIVER) Seizures: No Thyroid Disease: No - Surgical History Abdominal Surgery: No Appendectomy: No Cardiac Surgery: Yes (CABG) Cholecystectomy: No Lung Surgery: No Neurologic Surgery: No Orthopedic Surgery: Yes - Family Disease History Family Disease History: Heart Disease: Father - Immunization History Immunization Up to Date: Yes - Suicide/Smoking/Psychosocial Hx Smoking Status: Yes Smoking History: Never smoked Have you smoked in the past 12 months: No Number of Cigarettes Smoked Daily: 0 If you are a former smoker, when did you quit?: 25 yrs ago Information on smoking cessation initiated: No Hx Alcohol Use: No Drug/Substance Use Hx: No Substance Use Type: None Hx Substance Use Treatment: No Patient Lives Alone: No Lives with/in: spouse/SO Review of Systems - Review of Systems Able to Perform ROS?: No Constitutional: No: Symptoms Reported HEENTM: No: Symptoms Reported Respiratory: No: Symptoms reported Cardiac (ROS): No: Symptoms Reported ABD/GI: No: Symptoms Reported : No: Symptoms Reported Musculoskeletal: Yes: Joint Pain Integumentary: No: Symptoms Reported Neurological: No: Symptoms reported Endocrine: No: Symptoms Reported *Physical Exam - Vital Signs Last Vital Signs Temp Pulse Resp BP Pulse Ox 98.3 F 61 19 118/91 98 05/09/19 14:05 05/09/19 14:05 05/09/19 14:05 05/09/19 14:05 05/09/19 14:05 - Physical Exam General Appearance: Yes: Nourished, Appropriately Dressed. No: Apparent Distress HEENT: positive: EOMI, OTTO, TMs Normal, Pharynx Normal. negative: Pale Conjunctivae Neck: positive: Normal Thyroid, Supple Respiratory/Chest: positive: Lungs Clear, Normal Breath Sounds. negative: Respiratory Distress, Accessory Muscle Use Cardiovascular: positive: Regular Rhythm, Regular Rate. negative: Murmur Gastrointestinal/Abdominal: positive: Soft. negative: Tenderness Extremity: positive: Normal Inspection Integumentary: positive: Normal Color, Warm, Moist Neurologic: positive: Motor Strength 5/5 (ambulatory) ED Treatment Course - LABORATORY CBC & Chemistry Diagram: 05/09/19 14:31 05/09/19 14:31 - ADDITIONAL ORDERS Additional order review: Laboratory Results 05/09/19 14:31 Sodium 138 Potassium 4.2 Chloride 104 Carbon Dioxide 27 Anion Gap 8 BUN 15.6 Creatinine 0.7 Est GFR (CKD-EPI)AfAm 95.51 Est GFR (CKD-EPI)NonAf 82.41 Random Glucose 98 Calcium 9.1 Total Bilirubin 0.2 AST 20 ALT 17 Alkaline Phosphatase 77 Troponin I < 0.02 Total Protein 7.2 Albumin 3.4 05/09/19 14:31 RBC 3.87 MCV 88.7 MCHC 32.8 RDW 14.9 MPV 9.0 Neutrophils % 67.6 Lymphocytes % 18.0 Monocytes % 10.8 H Eosinophils % 2.3 Basophils % 1.3 Medical Decision Making - Medical Decision Making 05/09/19 15:31 Chief complaint: URI complaints for the past 2 days with achy joints yesterday with good effect after taking Tylenol. Exam. 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 Will call patient with urine results since collection was prolonged 05/09/19 17:33 Laboratory Tests 05/09/19 16:00 Urine Blood 2+ H Ur Leukocyte Esterase Negative Urine WBC (Auto) 1 Urine RBC (Auto) 30 *DC/Admit/Observation/Transfer Diagnosis at time of Disposition: URI, acute - Discharge Dispostion Disposition: HOME Condition at time of disposition: Good - Referrals Referrals: Ellen Carbone MD [Primary Care Provider] - - Patient Instructions Printed Discharge Instructions: DI for Common Cold Additional Instructions: Take Tylenol Motrin discomfort and drink plenty of fluids and rest. Will call you with urine results. - Post Discharge Activity Forms/Work/School Notes: Back to Work
[2019-05-09 17:08] LABS: EPI CELLS 0.3 /HPF (0-5/HPF); HYALINE CASTS 1 /lpf (0-8); PH,URINE 5.5 (5.0-8.0); URINE APPEARANCE CLEAR; URINE BILIRUBIN NEGATIVE (NEGATIVE); URINE COLOR YELLOW; URINE GLUCOSE (UA) NEGATIVE (NEGATIVE); URINE KETONE NEGATIVE (NEGATIVE); URINE LEUK ESTERASE NEGATIVE (NEGATIVE); URINE NITRITE NEGATIVE (NEGATIVE); URINE PROTEIN NEGATIVE (NEGATIVE); URINE RBC 30 /hpf (0-4); URINE UROBILINOGEN 0.2 mg/dL (0.2-1.0); URINE WBC 1 /hpf (0-5)
== END 2019-05-09 17:30 | disposition home or self-care (01) ==
LOC: JER 13:56
DX: J06.9 Acute upper respiratory infection, unspecified (principal); I25.10 Atherosclerotic heart disease of native coronary artery without angina pectoris; I10 Essential (primary) hypertension; Z95.1 Presence of aortocoronary bypass graft; I48.0 Paroxysmal atrial fibrillation; Z79.01 Long term (current) use of anticoagulants; Z85.828 Personal history of other malignant neoplasm of skin
CPT/HCPCS: 36415; 71046-TC-FY; 80053; 81003; 84484; 85025; 93005; 93010; 99282-25

== ENCOUNTER 2019-10-01 09:53 | Inpatient (IN) | payer OTHER ==
--- NOTE | 2019-10-01 10:59 | PDOC ---
History of Present Illness - General Chief Complaint: Respiratory Stated Complaint: FLU SYMPTOMS Time Seen by Provider: 10/01/19 10:57 - History of Present Illness Initial Comments: Lizet Nicholas is a 79 y/o female with pmh significant for a-fib on eliquis, pacemaker, arthritis, HTN, HLD, CAD, presenting today with generalized weakness , shortness of breath on exertion, orthopnea that started yesterday. Also reporting diffuse body aches over the past month that worsened today. Denies falls. Denies LOC. Denies head trauma. Denies chest pain/abdominal jasmin. Denies fever/chills/cough. Denies n/v/d. Denies dysuria. Past History - Past Medical History Allergies/Adverse Reactions: Allergies Allergy/AdvReac Type Severity Reaction Status Date / Time Penicillins Allergy Mild Itching Verified 10/01/19 14:53 Home Medications: Ambulatory Orders Sotalol HCl [Betapace -] 80 mg PO BID #28 tablet 06/10/14 Valsartan [Diovan] 160 mg PO DAILY #14 tablet 03/15/15 Diltiazem Cd [Cardizem Cd -] 360 mg PO DAILY #30 cap.cd.24h 08/27/16 Pravastatin Sodium [Pravachol -] 40 mg PO HS 12/30/16 Apixaban [Eliquis -] 5 mg PO BID tablet 11/03/17 Esomeprazole Magnesium [Nexium 24Hr] 20 mg PO DAILY #30 capsule.dr 12/07/17 Pantoprazole Sodium [Protonix -] 40 mg PO BID #60 tablet.ec 12/25/17 Sucralfate Oral Suspension [Carafate Oral Suspension -] 1 gm PO BID #1 bottle Isosorbide Dinitrate [Isordil] 5 mg PO BID #60 tablet 08/19/18 Anemia: No Asthma: No Cancer: Yes (SKIN CA- EARLOBE) Cardiac Disorders: Yes (CAD, P A-FIB,CAROTID PLAQUE) CVA: No COPD: No CHF: No Dementia: No Diabetes: No GI Disorders: Yes (gastritis) Disorders: No HTN: Yes Hypercholesterolemia: Yes Liver Disease: (FATTY LIVER) Seizures: No Thyroid Disease: No - Surgical History Abdominal Surgery: No Appendectomy: No Cardiac Surgery: Yes (CABG) Cholecystectomy: No Lung Surgery: No Neurologic Surgery: No Orthopedic Surgery: Yes - Immunization History Immunization Up to Date: Yes - Psycho Social/Smoking Cessation Hx Smoking Status: Yes Smoking History: Never smoked Have you smoked in the past 12 months: No Number of Cigarettes Smoked Daily: 0 If you are a former smoker, when did you quit?: 25 yrs ago Hx Alcohol Use: No Drug/Substance Use Hx: No Substance Use Type: None Hx Substance Use Treatment: No Review of Systems - Review of Systems Comments:: GENERAL/CONSTITUTIONAL: No fever or chills. Reports generalized weakness. HEAD, EYES, EARS, NOSE AND THROAT: No change in vision. No change in hearing. No sore throat._ CARDIOVASCULAR: No chest pain. Reports shortness of breath. RESPIRATORY: Denies cough, hemoptysis_ GASTROINTESTINAL: No nausea, vomiting, diarrhea or constipation._ GENITOURINARY: No dysuria, frequency, or change in urination._ MUSCULOSKELETAL: Reports diffuse body aches. SKIN: No rash_ NEUROLOGIC: No headache, vertigo, loss of consciousness, or change in strength/ sensation._ ENDOCRINE: No increased thirst. No abnormal weight change_ HEMATOLOGIC/LYMPHATIC: No anemia, easy bleeding, or history of blood clots._ ALLERGIC/IMMUNOLOGIC: No hives or skin allergy._ *Physical Exam - Vital Signs Last Vital Signs Temp Pulse Resp BP Pulse Ox 97.6 F 69 18 152/66 95 10/01/19 09:55 10/01/19 09:55 10/01/19 09:55 10/01/19 09:55 10/01/19 09:55 ED Treatment Course - LABORATORY CBC & Chemistry Diagram: 10/02/19 07:08 10/02/19 07:08 Medical Decision Making - Medical Decision Making 10/01/19 12:20 79F hx of a-fib on eliquis, cad, htn, hld, arthritis, presenting today with SOB on exertion, orthopnea, generalized weakness, body aches. -cbc, cmp, bnp -ekg, trop, cxr -ua, ucx -fluids, tylenol 10/01/19 12:25 EKG shows 65 bpm, sinus rhythm, paced, PVCs, no ST elevation, QTc 503. 10/01/19 13:39 CXR shows bibasilar pleural effusions, basilar atelectasis, cardiomegaly, pacemaker. 10/01/19 14:12 Labs reviewed. D/w EMBR[facility] HAND Connie Resendiz who accepts the patient for admission for Dr. Negrete. Laboratory Last Values WBC 12.0 K/mm3 (4.0-10.0) H 10/01/19 11:48 RBC 4.17 M/mm3 (3.60-5.2) 10/01/19 11:48 Hgb 11.4 GM/dL (10.7-15.3) 10/01/19 11:48 Hct 36.2 % (32.4-45.2) 10/01/19 11:48 MCV 86.8 fl (80-96) 10/01/19 11:48 MCH 27.4 pg (25.7-33.7) 10/01/19 11:48 MCHC 31.6 g/dl (32.0-36.0) L 10/01/19 11:48 RDW 15.6 % (11.6-15.6) 10/01/19 11:48 Plt Count 293 K/MM3 (134-434) D 10/01/19 11:48 MPV 8.7 fl (7.5-11.1) 10/01/19 11:48 Absolute Neuts (auto) 8.4 K/mm3 (1.5-8.0) H 10/01/19 11:48 Neutrophils % 69.7 % (42.8-82.8) 10/01/19 11:48 Lymphocytes % 18.1 % (8-40) 10/01/19 11:48 Monocytes % 9.2 % (3.8-10.2) 10/01/19 11:48 Eosinophils % 2.2 % (0-4.5) 10/01/19 11:48 Basophils % 0.8 % (0-2.0) 10/01/19 11:48 Nucleated RBC % 0 % (0-0) 10/01/19 11:48 Creatine Kinase 38 U/L (26-192) 10/01/19 11:15 Troponin I < 0.02 ng/ml (0.00-0.05) 10/01/19 11:15 B-Natriuretic Peptide 4408.9 pg/ml (5-450) H 10/01/19 11:15 10/01/19 17:56 Labs reviewed. Laboratory Last Values WBC 12.0 K/mm3 (4.0-10.0) H 10/01/19 11:48 RBC 4.17 M/mm3 (3.60-5.2) 10/01/19 11:48 Hgb 11.4 GM/dL (10.7-15.3) 10/01/19 11:48 Hct 36.2 % (32.4-45.2) 10/01/19 11:48 MCV 86.8 fl (80-96) 10/01/19 11:48 MCH 27.4 pg (25.7-33.7) 10/01/19 11:48 MCHC 31.6 g/dl (32.0-36.0) L 10/01/19 11:48 RDW 15.6 % (11.6-15.6) 10/01/19 11:48 Plt Count 293 K/MM3 (134-434) D 10/01/19 11:48 MPV 8.7 fl (7.5-11.1) 10/01/19 11:48 Absolute Neuts (auto) 8.4 K/mm3 (1.5-8.0) H 10/01/19 11:48 Neutrophils % 69.7 % (42.8-82.8) 10/01/19 11:48 Lymphocytes % 18.1 % (8-40) 10/01/19 11:48 Monocytes % 9.2 % (3.8-10.2) 10/01/19 11:48 Eosinophils % 2.2 % (0-4.5) 10/01/19 11:48 Basophils % 0.8 % (0-2.0) 10/01/19 11:48 Nucleated RBC % 0 % (0-0) 10/01/19 11:48 Sodium 139 mmol/L (136-145) 10/01/19 11:15 Potassium 4.5 mmol/L (3.5-5.1) 10/01/19 11:15 Chloride 106 mmol/L (98-107) 10/01/19 11:15 Carbon Dioxide 26 mmol/L (21-32) 10/01/19 11:15 Anion Gap 8 MMOL/L (8-16) 10/01/19 11:15 BUN 11.3 mg/dL (7-18) 10/01/19 11:15 Creatinine 0.9 mg/dL (0.55-1.3) 10/01/19 11:15 Est GFR (CKD-EPI)AfAm 69.99 10/01/19 11:15 Est GFR (CKD-EPI)NonAf 60.39 10/01/19 11:15 Random Glucose 101 mg/dL (74-106) 10/01/19 11:15 Calcium 9.2 mg/dL (8.5-10.1) 10/01/19 11:15 Total Bilirubin 0.4 mg/dL (0.2-1) 10/01/19 11:15 AST 18 U/L (15-37) 10/01/19 11:15 ALT 14 U/L (13-61) 10/01/19 11:15 Alkaline Phosphatase 82 U/L (45-117) 10/01/19 11:15 Creatine Kinase 38 U/L (26-192) 10/01/19 11:15 Troponin I < 0.02 ng/ml (0.00-0.05) 10/01/19 11:15 B-Natriuretic Peptide 4408.9 pg/ml (5-450) H 10/01/19 11:15 Total Protein 7.5 g/dl (6.4-8.2) 10/01/19 11:15 Albumin 3.4 g/dl (3.4-5.0) 10/01/19 11:15 Urine Color Yellow 10/01/19 11:41 Urine Appearance Clear 10/01/19 11:41 Urine pH 7.0 (5.0-8.0) D 10/01/19 11:41 Ur Specific [place] 1.005 (1.010-1.035) L 10/01/19 11:41 Urine Protein Negative (NEGATIVE) 10/01/19 11:41 Urine Glucose (UA) Negative (NEGATIVE) 10/01/19 11:41 Urine Ketones Negative (NEGATIVE) 10/01/19 11:41 Urine Blood 2+ (NEGATIVE) H 10/01/19 11:41 Urine Nitrite Negative (NEGATIVE) 10/01/19 11:41 Urine Bilirubin Negative (NEGATIVE) 10/01/19 11:41 Urine Urobilinogen 0.2 mg/dL (0.2-1.0) 10/01/19 11:41 Ur Leukocyte Esterase Negative (NEGATIVE) 10/01/19 11:41 Urine WBC (Auto) 0 /hpf (0-5) 10/01/19 11:41 Urine RBC (Auto) 10 /hpf (0-4) 10/01/19 11:41 Urine Casts (Auto) 0 /lpf (0-8) 10/01/19 11:41 U Epithel Cells (Auto) 0.2 /HPF (0-5/HPF) 10/01/19 11:41 Urine Bacteria (Auto) 4.6 /hpf (NEGATIVE) 10/01/19 11:41 Discharge - Discharge Information Problems reviewed: Yes Clinical Impression/Diagnosis: New onset of congestive heart failure Condition: Stable - Admission Yes - Follow up/Referral - Patient Discharge Instructions - Post Discharge Activity
[2019-10-01] MEDS ORDERED: SODIUM CHLORIDE 0.9% 500 ML INFUS.BAG IV ONE (11:09)
[2019-10-01] MEDS ORDERED: ACETAMINOPHEN 1000 MG/100 ML VIAL (NON FORMULARY) IVPB ONE (11:09)
[2019-10-01] MEDS ORDERED: ACETAMINOPHEN INJECTION 100 ML IVPB ONE (11:19)
[2019-10-01 12:06] LABS: BASO % 0.8 % (0-2.0); EOS % 2.2 % (0-4.5); HEMATOCRIT 36.2 % (32.4-45.2); HEMOGLOBIN 11.4 GM/dL (10.7-15.3); LYMPH % 18.1 % (8-40); MCH 27.4 pg (25.7-33.7); MCHC 31.6 g/dl (32.0-36.0); MEAN CELL VOLUME 86.8 fl (80-96); MEAN PLT VOLUME 8.7 fl (7.5-11.1); MONO % 9.2 % (3.8-10.2); NEUT % 69.7 % (42.8-82.8); PLATELET COUNT 293 K/MM3 (134-434); RBC 4.17 M/mm3 (3.60-5.2); RDW 15.6 % (11.6-15.6)
--- NOTE | 2019-10-01 14:06 | EKG ---
Test Reason : Blood Pressure : / mmHG Vent. Rate : 065 BPM Atrial Rate : 065 BPM P-R Int : 100 ms QRS Dur : 132 ms QT Int : 484 ms P-R-T Axes : 000 -23 234 degrees QTc Int : 503 ms SINUS RHYTHM WITH SHORT NV WITH FREQUENT ventricular-paced complexes AND PREMATURE SUPRAVENTRICULAR COMPLEXES NON-SPECIFIC INTRA-VENTRICULAR CONDUCTION BLOCK INFERIOR INFARCT , AGE UNDETERMINED ABNORMAL ECG Confirmed by MD MARIANN, HALEIGH ([id number]) on 10/01/2019 2:05:58 PM Referred By: Confirmed By:HALEIGH WAITE MD
--- NOTE | 2019-10-01 14:13 | PDOC ---
Documentation entered by Ariel Clifford SCRIBE, acting as scribe for Debra Dugan MD. Debra Dugan MD: This documentation has been prepared by the Darrin juarez Daniel, SCRIBE, under my direction and personally reviewed by me in its entirety. I confirm that the documentation accurately reflects all work, treatment, procedures, and medical decision making performed by me. Attending Attestation - Resident Resident Name: GeorgeMaged - ED Attending Attestation I have performed the following: I have examined & evaluated the patient, The case was reviewed & discussed with the resident, I agree w/resident's findings & plan, Exceptions are as noted - HPI HPI: 10/01/19 11:26 Patient is an 79 year old female with a significant medical history of CAD, HTN , HLD, afib (eliquis), and pacemaker placement who presents to the ED with SOB and pain in shoulders, back, and ribs that began a month ago but is significantly worse today. Patient reports generalized weakness and dyspnea on exertion. Patient also reports rhinorrhea, which she took sudafed for and it has since gotten better. Patient denies chest pain, headache, lightheadedness. Denies nausea, vomiting, diarrhea, abdominal pain. Allergies: penicillins PCP: Ellen Carbone - Physicial Exam PE: 10/01/19 12:26 GENERAL: Awake, alert, and fully oriented, in no acute distress HEAD: No signs of trauma EYES: PERRLA, EOMI, sclera anicteric, conjunctiva clear ENT: Auricles normal inspection, hearing grossly normal, nares patent, oropharynx clear without exudates. Moist mucosa NECK: Normal ROM, supple, no lymphadenopathy, JVD, or masses LUNGS: Breath sounds equal, clear to auscultation bilaterally. No wheezes, and no crackles HEART: Regular rate and rhythm, normal S1 and S2, no murmurs, rubs or gallops ABDOMEN: Soft, nontender, normoactive bowel sounds. No guarding, no rebound. No masses EXTREMITIES: Normal range of motion, no edema. No clubbing or cyanosis. No cords, erythema, or tenderness NEUROLOGICAL: Cranial nerves II through XII grossly intact. Normal speech, normal gait SKIN: Warm, Dry, normal turgor, no rashes or lesions noted. - Medical Decision Making 10/01/19 13:01 Pt presents to the ED complaining of generalized weakness and generalized malaise. Also complains of orthopnea and several episodes of shortness of breath that are different than her usual. Labs and CXR are consistent with CHF. Will admit to medicine for continued monitoring and work up. 10/01/19 13:01 10/01/19 14:12
[2019-10-01] MEDS ORDERED: ALBUTEROL SO4 2.5/IPRATROPIUM 0.5 INH SOL 3 ML VIAL.NEB. NEB PRN (14:24)
[2019-10-01] MEDS ORDERED: FUROSEMIDE 40 MG/4 ML INJECTABLE VIAL IVPUSH ONE (14:27)
[2019-10-01 14:28] LABS: EPI CELLS 0.2 /HPF (0-5/HPF); HYALINE CASTS 0 /lpf (0-8); URINE APPEARANCE CLEAR; URINE BACTERIA 4.6 /hpf (NEGATIVE); URINE BILIRUBIN NEGATIVE (NEGATIVE); URINE COLOR YELLOW; URINE GLUCOSE (UA) NEGATIVE (NEGATIVE); URINE KETONE NEGATIVE (NEGATIVE); URINE LEUK ESTERASE NEGATIVE (NEGATIVE); URINE NITRITE NEGATIVE (NEGATIVE); URINE PROTEIN NEGATIVE (NEGATIVE); URINE RBC 10 /hpf (0-4); URINE UROBILINOGEN 0.2 mg/dL (0.2-1.0); URINE WBC 0 /hpf (0-5)
[2019-10-01 14:51] LABS: ALBUMIN 3.4 g/dl (3.4-5.0); ALK PHOS 82 U/L (45-117); ANION GAP 8 MMOL/L (8-16); BILIRUBIN,TOTAL 0.4 mg/dL (0.2-1); BLOOD UREA NITROGEN 11.3 mg/dL (7-18); CALCIUM 9.2 mg/dL (8.5-10.1); CHLORIDE 106 mmol/L (98-107); CO2 26 mmol/L (21-32); CREATININE 0.9 mg/dL (0.55-1.3); GLUCOSE,RANDOM 101 mg/dL (74-106); POTASSIUM 4.5 mmol/L (3.5-5.1); SGOT/AST 18 U/L (15-37); SGPT/ALT 14 U/L (13-61); SODIUM 139 mmol/L (136-145); TOT PROT 7.5 g/dl (6.4-8.2)
[2019-10-01] MEDS: APIXABAN 5 MG TABLET PO SCH (21:23)
[2019-10-01] MEDS: SOTALOL HCL 80 MG TABLET (FP) PO SCH (21:23)
[2019-10-01] MEDS: PANTOPRAZOLE 40 MG TABLET PO SCH (21:23)
[2019-10-01] MEDS ORDERED: ISOSORBIDE DINITRATE 5 MG TABLET PO SCH (22:00)
[2019-10-01] MEDS ORDERED: SUCRALFATE 1 GM/10 ML UNIT DOSE CUPS PO SCH (22:00)
[2019-10-01] MEDS: ACETAMINOPHEN 325 MG TABLET (FP) PO PRN (22:30)
[2019-10-02 07:55] LABS: ALBUMIN 3.2 g/dl (3.4-5.0); BILIRUBIN,TOTAL 0.3 mg/dL (0.2-1); BLOOD UREA NITROGEN 15.5 mg/dL (7-18); CALCIUM 8.8 mg/dL (8.5-10.1); CREATININE 0.8 mg/dL (0.55-1.3); POTASSIUM 3.7 mmol/L (3.5-5.1); TOT PROT 6.8 g/dl (6.4-8.2)
[2019-10-02 07:59] LABS: BASO % 0.4 % (0-2.0); EOS % 2.6 % (0-4.5); HEMATOCRIT 33.8 % (32.4-45.2); HEMOGLOBIN 11.1 GM/dL (10.7-15.3); MEAN PLT VOLUME 8.6 fl (7.5-11.1); PLATELET COUNT 245 K/MM3 (134-434); RBC 3.97 M/mm3 (3.60-5.2); RDW 16.1 % (11.6-15.6); WHITE BLOOD COUNT 8.9 K/mm3 (4.0-10.0)
[2019-10-02] MEDS: SUCRALFATE 1 GM/10 ML UNIT DOSE CUPS PO SCH ×2 (09:00→16:47)
--- NOTE | 2019-10-02 09:11 | CON.CARD ---
Consult Consult Specialty:: CV - History of Present Illness Chief Complaint: sob History of Present Illness: 79 yo F with SOB and pain in shoulders, back, and ribs. states body aches began a month ago but is significantly worse x1-2d. + generalized weakness and dyspnea on exertion. Patient also reports rhinorrhea currently comfortable, denies sob. no palp, syncope ER: VSs stable CXR effusions BNP 4400 (from 500, 08/09). trop neg. PMH: Mild , HTN, PPM, PAF, prior cath with nonob dz - Past Medical History Cardio/Vascular: Yes: AFIB, CAD, HTN, Hyperlipdemia, Other (PPM) Gastrointestinal: Yes: Diverticulosis, Hemorrhoids. No: Constipation Musculoskeletal: Yes: Osteoarthritis (R shoulder/injury) - Past Surgical History Past Surgical History: Yes: Colonoscopy, Oopherectomy (right), Permanent Pacemaker, Upper Endoscopy - Alcohol/Substance Use Hx Alcohol Use: No History of Substance Use: reports: None - Smoking History Smoking history: Never smoked Have you smoked in the past 12 months: No Aproximately how many cigarettes per day: 0 If you are a former smoker, when did you quit?: 25 yrs ago - Social History ADL: Independent History of Recent Travel: No Home Medications - Allergies Allergies/Adverse Reactions: Allergies Allergy/AdvReac Type Severity Reaction Status Date / Time Penicillins Allergy Mild Itching Verified 10/01/19 14:53 - Home Medications Home Medications: Ambulatory Orders Sotalol HCl [Betapace -] 80 mg PO BID #28 tablet 06/10/14 Valsartan [Diovan] 160 mg PO DAILY #14 tablet 03/15/15 Diltiazem Cd [Cardizem Cd -] 360 mg PO DAILY #30 cap.cd.24h 08/27/16 Pravastatin Sodium [Pravachol -] 40 mg PO HS 12/30/16 Apixaban [Eliquis -] 5 mg PO BID tablet 11/03/17 Esomeprazole Magnesium [Nexium 24Hr] 20 mg PO DAILY #30 capsule.dr 12/07/17 Pantoprazole Sodium [Protonix -] 40 mg PO BID #60 tablet.ec 12/25/17 Sucralfate Oral Suspension [Carafate Oral Suspension -] 1 gm PO BID #1 bottle Isosorbide Dinitrate [Isordil] 5 mg PO BID #60 tablet 08/19/18 Family Medical History Family History: Denies (no known cmp) Review of Systems - Review of Systems Constitutional: denies: Chills, Fever Eyes: denies: Eye Pain HENT: denies: Nasal Congestion Neck: denies: Stiffness Cardiovascular: denies: Palpitations Respiratory: denies: Orthopnea, PND Gastrointestinal: denies: Diarrhea, Rectal Bleeding Genitourinary: denies: Burning, Hematuria Musculoskeletal: denies: Muscle Pain Integumentary: denies: Rash Neurological: denies: Numbness, Seizure, Syncope Endocrine: denies: Excessive Sweating Hematology/Lymphatic: denies: Excessive Bleeding Vital Signs: Vital Signs Temperature 98.6 F 10/02/19 06:00 Pulse Rate 67 10/02/19 06:00 Respiratory Rate 10/02/19 06:00 Blood Pressure 138/73 10/02/19 06:00 O2 Sat by Pulse Oximetry (%) 99 10/01/19 14:45 Constitutional: Yes: Well Nourished, No Distress Eyes: No: Sclera Icterus HENT: No: Nasal Congestion Neck: No: Decreased ROM Respiratory: Yes: Rales (bases). No: Accessory Muscle Use, Wheezes Gastrointestinal: Yes: Normal Bowel Sounds. No: Distention, Hepatomegaly, Palpable Mass, Tenderness Cardiovascular: Yes: Regular Rate and Rhythm JVD: No Carotid Bruit: No PMI: Non-Displaced Heart Sounds: Yes: S1, S2. No: Gallop Murmur: Yes: Systolic Murmur (1/6 early MUNA rusb). No: Diastolic Murmur Musculoskeletal: Yes: Other (No kyphosis) Extremities: No: Cool, Cyanosis Edema: No Peripheral Pulses: 2+ Left Carotid, 2+ Right Carotid, 2+ Left Doralis Pedis, 2+ Right Dorsalis Pedis Integumentary: No: Jaundice Neurological: Yes: Alert. No: Seizure Psychiatric: No: Agitated - Other Data Labs, Other Data: CBC, BMP 10/02/19 07:08 10/02/19 07:08 Troponin, BNP 10/01/19 10/01/19 11:15 11:15 Troponin I < 0.02 B-Natriuretic Peptide 4408.9 H Troponin, BNP 10/01/19 10/01/19 11:15 11:15 Troponin I < 0.02 B-Natriuretic Peptide 4408.9 H Assessment/Plan MPI 07/2018 (harman): mild anterior ischemia, nl EF Echo 07/2018: mod conc LVH. nl EF. nl RV. PM lead seen. mild /mild-mod AI. small peric eff Echo 2019: mild LVH, nl EF. nl RV. mod LAE. sclerotic AV no stenosis, mild AI. mild MR. mod TR. RVSP 30-40. CXR: bilat effusions with adjcnt atx, coarse lung markings ? mild congestion ECG: AFL, V-paced acute CHF: -no prior h/o CHF -echo 08/09 with moderate (conc) LVH, mild /mild-mod AI--rpt study -BNP acutely markedly elevated vs prior, cxr congested -wt 150 in office 07/11--monitor wts trend here -start lasix IV 40 qd--suspect she will not need long duration of this dose -prior cath with nonob CAD; MPI here 07/2018 with mild anterior ischemia--pt declined cath at that time. no suspected ACS sx, ecg v-paced. follow troponin. -given new HFpEF syndrome, should have repeat discussion of ischemia eval and possibly revascularization--will defer to dr morales who she has relationship with when he rounds tomorrow CAD: -as above -cont home bb (sotalol), statin, NOAC PAF, PPM: -on sotalol at home--continue same here -cont home eliquis HTN: -bp reasonable -cont home meds, observe
[2019-10-02] MEDS: VALSARTAN 160 MG TABLET (UD) PO SCH (09:44)
[2019-10-02] MEDS: ISOSORBIDE DINITRATE 5 MG TABLET PO SCH ×2 (09:44→17:57)
[2019-10-02] MEDS: PANTOPRAZOLE 40 MG TABLET PO SCH ×2 (09:44→21:57)
[2019-10-02] MEDS: APIXABAN 5 MG TABLET PO SCH ×2 (09:44→21:56)
[2019-10-02] MEDS: SOTALOL HCL 80 MG TABLET (FP) PO SCH ×2 (09:44→21:56)
[2019-10-02] MEDS: FUROSEMIDE 40 MG/4 ML INJECTABLE VIAL IVPUSH SCH (12:04)
--- NOTE | 2019-10-02 12:28 | HP ---
Admitting History and Physical - Primary Care Physician PCP: Ellen Carbone I - Admission Chief Complaint: Weakness and Fatigue History of Present Illness: Patient is an 79 y/o female with past medical history of Afib on Eliquis, Pacemaker, Arthritis, HTN, HLD, CAD. Pattient presented to [facility] with complaints of weakness, fatigue, SOB with exertion for 1 day. She also complains of pain to L rib pain, denies trauma or fall. She denies chest pain, palpitations, dizziness, abdominal pain. History Source: Patient Limitations to Obtaining History: No Limitations - Past Medical History Cardiovascular: Yes: AFIB, CAD, HTN, Hyperlipdemia, Other (PPM) Gastrointestinal: Yes: Diverticulosis, Hemorrhoids. No: Constipation Musculoskeletal: Yes: Osteoarthritis (R shoulder/injury) - Past Surgical History Past Surgical History: Yes: Colonoscopy, Oopherectomy (right), Permanent Pacemaker, Upper Endoscopy - Smoking History Smoking history: Never smoked Have you smoked in the past 12 months: No Aproximately how many cigarettes per day: 0 If you are a former smoker, when did you quit?: 25 yrs ago - Alcohol/Substance Use Hx Alcohol Use: No History of Substance Use: reports: None - Social History ADL: Independent History of Recent Travel: No Home Medications - Allergies Allergies/Adverse Reactions: Allergies Allergy/AdvReac Type Severity Reaction Status Date / Time Penicillins Allergy Mild Itching Verified 10/01/19 14:53 - Home Medications Home Medications: Ambulatory Orders Sotalol HCl [Betapace -] 80 mg PO BID #28 tablet 06/10/14 Valsartan [Diovan] 160 mg PO DAILY #14 tablet 03/15/15 Diltiazem Cd [Cardizem Cd -] 360 mg PO DAILY #30 cap.cd.24h 08/27/16 Pravastatin Sodium [Pravachol -] 40 mg PO HS 12/30/16 Apixaban [Eliquis -] 5 mg PO BID tablet 11/03/17 Esomeprazole Magnesium [Nexium 24Hr] 20 mg PO DAILY #30 capsule.dr 12/07/17 Pantoprazole Sodium [Protonix -] 40 mg PO BID #60 tablet.ec 12/25/17 Sucralfate Oral Suspension [Carafate Oral Suspension -] 1 gm PO BID #1 bottle Isosorbide Dinitrate [Isordil] 5 mg PO BID #60 tablet 08/19/18 Review of Systems - Review of Systems Constitutional: reports: Weakness Eyes: reports: No Symptoms HENT: reports: No Symptoms Neck: reports: No Symptoms Cardiovascular: reports: Shortness of Breath Respiratory: reports: SOB, SOB on Exertion Gastrointestinal: reports: No Symptoms Genitourinary: reports: No Symptoms Breasts: reports: No Symptoms Reported Musculoskeletal: reports: Back Pain Integumentary: reports: No Symptoms Neurological: reports: No Symptoms Endocrine: reports: No Symptoms Hematology/Lymphatic: reports: No Symptoms Psychiatric: reports: No Symptoms Physical Examination Vital Signs: Vital Signs Temperature 98.0 F 10/02/19 09:09 Pulse Rate 62 10/02/19 09:09 Respiratory Rate 10/02/19 09:09 Blood Pressure 159/64 10/02/19 09:09 O2 Sat by Pulse Oximetry (%) 95 10/02/19 09:09 Constitutional: Yes: No Distress, Calm Eyes: Yes: Conjunctiva Clear HENT: Yes: Atraumatic Neck: Yes: Supple Cardiovascular: Yes: Regular Rate and Rhythm Respiratory: Yes: Regular, Diminished Gastrointestinal: Yes: Normal Bowel Sounds, Soft Musculoskeletal: Yes: Muscle Weakness Extremities: Yes: WNL Edema: No Neurological: Yes: Alert Psychiatric: Yes: Alert Labs: CBC, BMP 10/02/19 07:08 10/02/19 07:08 Imaging - Results Chest X-ray: Report Reviewed Problem List - Problems (1) New onset of congestive heart failure Assessment/Plan: -Cardiology on board -BNP 4408.9 -Lasix IV -daily weights -strict I&Os -CXR shows coarse lung changes with bibasilar pleural effusions and some basilar atelectasis, interstitial markings have increased somewhat -Echo pending Code(s): I50.9 - HEART FAILURE, UNSPECIFIED (2) Atrial fibrillation Assessment/Plan: -Eliquis -Cardizem for rate control Code(s): I48.91 - UNSPECIFIED ATRIAL FIBRILLATION Qualifiers: Atrial fibrillation type: paroxysmal Qualified Code(s): I48.0 - Paroxysmal atrial fibrillation (3) Coronary artery disease Assessment/Plan: -Sotalol, Eliquis Code(s): I25.10 - ATHSCL HEART DISEASE OF [place] CORONARY ARTERY W/O ANG PCTRS Qualifiers: Coronary Disease-Associated Artery/Lesion type: [place] artery [place] vs. transplanted heart: [place] heart Associated angina: with stable angina Qualified Code(s): I25.118 - Atherosclerotic heart disease of [place] coronary artery with other forms of angina pectoris (4) GERD (gastroesophageal reflux disease) Assessment/Plan: -Pantoprazole Code(s): K21.9 - GASTRO-ESOPHAGEAL REFLUX DISEASE WITHOUT ESOPHAGITIS Qualifiers: Esophagitis presence: esophagitis presence not specified Qualified Code(s) : K21.9 - Gastro-esophageal reflux disease without esophagitis (5) Hyperlipidemia Assessment/Plan: -Pravachol Code(s): E78.5 - HYPERLIPIDEMIA, UNSPECIFIED Qualifiers: Hyperlipidemia type: pure hypercholesterolemia Qualified Code(s): E78.00 - Pure hypercholesterolemia, unspecified; E78.0 - Pure hypercholesterolemia (6) Hypertension Assessment/Plan: -Diovan, Isosorbide -low Na diet Code(s): I10 - ESSENTIAL (PRIMARY) HYPERTENSION Qualifiers: Hypertension type: essential hypertension Qualified Code(s): I10 - Essential (primary) hypertension
[2019-10-02] MEDS ORDERED: ACETAMINOPHEN 325 MG TABLET (FP) ONE (21:50)
[2019-10-02] MEDS ORDERED: PANTOPRAZOLE 40 MG TABLET ONE (21:50)
[2019-10-02] MEDS: ACETAMINOPHEN 325 MG TABLET (FP) PO PRN (21:57)
[2019-10-03 00:17] VITALS: BMI 25.7
[2019-10-03] MEDS: SUCRALFATE 1 GM/10 ML UNIT DOSE CUPS PO SCH ×2 (06:19→17:53)
--- NOTE | 2019-10-03 08:08 | PN ---
Progress Note, Physician Chief Complaint: AWAKE ALERT EVENTS AND NOTES REVIEWED DENIES CHEST PAIN DYSPNEA ON EXERTION + - Current Medication List Current Medications: Active Medications Acetaminophen (Tylenol -) 650 mg PO Q4H PRN PRN Reason: PAIN Last Admin: 10/02/19 21:57 Dose: 650 mg Albuterol/Ipratropium (Duoneb -) 1 amp NEB Q6H PRN PRN Reason: SHORTNESS OF BREATH Apixaban (Eliquis -) 5 mg PO BID [facility] Last Admin: 10/02/19 21:56 Dose: 5 mg Diltiazem HCl (Cardizem Cd -) 360 mg PO DAILY [facility] Last Admin: 10/02/19 09:44 Dose: 360 mg Furosemide (Lasix Injection -) 40 mg IVPUSH DAILY [facility] Last Admin: 10/02/19 12:04 Dose: 40 mg Isosorbide Dinitrate (Isordil -) 5 mg PO BIDISORDIL [facility] Last Admin: 10/02/19 17:57 Dose: 5 mg Pantoprazole Sodium (Protonix -) 40 mg PO BID [facility] Last Admin: 10/02/19 21:57 Dose: 40 mg Sotalol HCl (Betapace -) 80 mg PO BID [facility] Last Admin: 10/02/19 21:56 Dose: 80 mg Sucralfate (Carafate Oral Suspension -) 1 gm PO BIDAC [facility] Last Admin: 10/03/19 06:19 Dose: 1 gm Valsartan (Diovan -) 160 mg PO DAILY [facility] Last Admin: 10/02/19 09:44 Dose: 160 mg - Objective Vital Signs: Vital Signs Temperature 98.4 F 10/03/19 07:00 Pulse Rate 64 10/03/19 07:00 Respiratory Rate 18 10/03/19 07:00 Blood Pressure 139/83 10/03/19 07:00 O2 Sat by Pulse Oximetry (%) 98 10/03/19 00:36 Constitutional: Yes: Mild Distress Cardiovascular: Yes: Pulse Irregular Respiratory: Yes: Diminished Gastrointestinal: Yes: Soft, Abdomen, Obese Genitourinary: Yes: WNL Musculoskeletal: Yes: Back Pain Edema: No Peripheral Pulses WNL: Yes Integumentary: Yes: WNL Wound/Incision: Yes: Clean/Dry Neurological: Yes: WNL ...Motor Strength: WNL Psychiatric: Yes: WNL Labs: CBC, BMP 10/02/19 07:08 10/02/19 07:08 Problem List - Problems (1) Diastolic CHF, acute on chronic Code(s): I50.33 - ACUTE ON CHRONIC DIASTOLIC (CONGESTIVE) HEART FAILURE (2) Abdominal distension Code(s): R14.0 - ABDOMINAL DISTENSION (GASEOUS) (3) Abnormal ECG Code(s): R94.31 - ABNORMAL ELECTROCARDIOGRAM [ECG] [EKG] (4) Afib Code(s): I48.91 - UNSPECIFIED ATRIAL FIBRILLATION Qualifiers: Atrial fibrillation type: paroxysmal Qualified Code(s): I48.0 - Paroxysmal atrial fibrillation (5) Coronary artery disease Code(s): I25.10 - ATHSCL HEART DISEASE OF [place] CORONARY ARTERY W/O ANG PCTRS Qualifiers: Coronary Disease-Associated Artery/Lesion type: [place] artery [place] vs. transplanted heart: [place] heart Associated angina: with stable angina Qualified Code(s): I25.118 - Atherosclerotic heart disease of [place] coronary artery with other forms of angina pectoris (6) GERD (gastroesophageal reflux disease) Code(s): K21.9 - GASTRO-ESOPHAGEAL REFLUX DISEASE WITHOUT ESOPHAGITIS Qualifiers: Esophagitis presence: esophagitis presence not specified Qualified Code(s) : K21.9 - Gastro-esophageal reflux disease without esophagitis (7) Hyperlipidemia Code(s): E78.5 - HYPERLIPIDEMIA, UNSPECIFIED Qualifiers: Hyperlipidemia type: pure hypercholesterolemia Qualified Code(s): E78.00 - Pure hypercholesterolemia, unspecified; E78.0 - Pure hypercholesterolemia (8) Hypertension Code(s): I10 - ESSENTIAL (PRIMARY) HYPERTENSION Qualifiers: Hypertension type: essential hypertension Qualified Code(s): I10 - Essential (primary) hypertension (9) Pacemaker Code(s): Z95.0 - PRESENCE OF CARDIAC PACEMAKER Assessment/Plan AGREE WITH IV LASIX 40MG DAILY ON ELIQUIS FOR AFIB PT EVAL OOB TO CHAIR LIDODERM PATCH DAILY [facility]IGHTS NUTRITION CONSULT TO AVOID READMISSIONS FOR CHF BASED ON NON-COMPLIANCE TO DIET AND MEDICAL FOLLOW UP.
[2019-10-03 09:08] LABS: HEMATOCRIT 37.5 % (32.4-45.2); MCH 27.8 pg (25.7-33.7); MCHC 32.1 g/dl (32.0-36.0); MEAN CELL VOLUME 86.4 fl (80-96); MEAN PLT VOLUME 8.9 fl (7.5-11.1); PLATELET COUNT 243 K/MM3 (134-434); RBC 4.34 M/mm3 (3.60-5.2)
[2019-10-03 09:57] LABS: ALBUMIN 3.1 g/dl (3.4-5.0); BILIRUBIN,TOTAL 0.4 mg/dL (0.2-1); BLOOD UREA NITROGEN 15.5 mg/dL (7-18); CREATININE 0.8 mg/dL (0.55-1.3); POTASSIUM 4.1 mmol/L (3.5-5.1); TOT PROT 7.2 g/dl (6.4-8.2)
[2019-10-03] MEDS: LIDOCAINE 5% TOPICAL PATCH TP SCH (11:06)
[2019-10-03] MEDS: SOTALOL HCL 80 MG TABLET (FP) PO SCH ×2 (11:09→22:14)
[2019-10-03] MEDS: ISOSORBIDE DINITRATE 5 MG TABLET PO SCH ×2 (11:10→17:53)
[2019-10-03] MEDS: VALSARTAN 160 MG TABLET (UD) PO SCH (11:10)
[2019-10-03] MEDS: PANTOPRAZOLE 40 MG TABLET PO SCH ×2 (11:10→22:14)
[2019-10-03] MEDS: FUROSEMIDE 40 MG/4 ML INJECTABLE VIAL IVPUSH SCH (11:11)
[2019-10-03] MEDS: APIXABAN 5 MG TABLET PO SCH ×2 (11:11→22:14)
[2019-10-03] MEDS ORDERED: PT OWN MED DRAWER 7, Y5N ONE ×2 (11:20→22:09)
--- NOTE | 2019-10-03 13:52 | PN ---
Progress Note, Physician Chief Complaint: no CP or SOB Selected Entries 10/03/19 09:00 Temperature 98.3 F Pulse Rate 86 Blood Pressure 146/63 O2 Sat by Pulse 98 Oximetry (%) Laboratory Tests 10/01/19 10/01/19 10/02/19 11:15 11:15 10:19 WBC Hgb Plt Count Sodium Potassium Creatinine Troponin I < 0.02 < 0.02 B-Natriuretic Peptide 4408.9 H 10/03/19 10/03/19 07:50 07:50 WBC 8.0 Hgb 12.0 Plt Count 243 Sodium 139 Potassium 4.1 Creatinine 0.8 Troponin I B-Natriuretic Peptide History of Present Illness: 79 yo F with SOB and pain in shoulders, back, and ribs. states body aches began a month ago but is significantly worse x1-2d. + generalized weakness and dyspnea on exertion. Patient also reports rhinorrhea currently comfortable, denies sob. no palp, syncope ER: VSs stable CXR effusions BNP 4400 (from 500, 08/09). trop neg. PMH: Mild , HTN, PPM, PAF, prior cath with nonob d - Current Medication List Current Medications: Active Medications Acetaminophen (Tylenol -) 650 mg PO Q4H PRN PRN Reason: PAIN Last Admin: 10/02/19 21:57 Dose: 650 mg Albuterol/Ipratropium (Duoneb -) 1 amp NEB Q6H PRN PRN Reason: SHORTNESS OF BREATH Apixaban (Eliquis -) 5 mg PO BID [facility] Last Admin: 10/03/19 11:11 Dose: 5 mg Diltiazem HCl (Cardizem Cd -) 360 mg PO DAILY [facility] Last Admin: 10/03/19 11:08 Dose: 360 mg Furosemide (Lasix Injection -) 40 mg IVPUSH DAILY [facility] Last Admin: 10/03/19 11:11 Dose: 40 mg Isosorbide Dinitrate (Isordil -) 5 mg PO BIDISORDIL [facility] Last Admin: 10/03/19 11:10 Dose: 5 mg Lidocaine (Lidoderm Patch -) 1 patch TP DAILY [facility] Last Admin: 10/03/19 11:06 Dose: 1 patch Miscellaneous (Lidoderm Patch Removal) 1 each MC DAILY@2200 [facility] Pantoprazole Sodium (Protonix -) 40 mg PO BID [facility] Last Admin: 10/03/19 11:10 Dose: 40 mg Sotalol HCl (Betapace -) 80 mg PO BID [facility] Last Admin: 10/03/19 11:09 Dose: 80 mg Sucralfate (Carafate Oral Suspension -) 1 gm PO BIDAC [facility] Last Admin: 10/03/19 06:19 Dose: 1 gm Valsartan (Diovan -) 160 mg PO DAILY [facility] Last Admin: 10/03/19 11:10 Dose: 160 mg - Objective Vital Signs: Vital Signs Temperature 98.3 F 10/03/19 09:00 Pulse Rate 86 10/03/19 09:00 Respiratory Rate 18 10/03/19 09:00 Blood Pressure 146/63 10/03/19 09:00 O2 Sat by Pulse Oximetry (%) 98 10/03/19 09:00 Constitutional: Yes: No Distress Eyes: Yes: Conjunctiva Clear Cardiovascular: Yes: Regular Rate and Rhythm Respiratory: Yes: CTA Bilaterally Gastrointestinal: Yes: Soft Edema: No Neurological: Yes: Alert, Oriented Labs: CBC, BMP 10/03/19 07:50 10/03/19 07:50 Assessment/Plan Assessment/Plan MPI 07/2018 (harman): mild anterior ischemia, nl EF Echo 07/2018: mod conc LVH. nl EF. nl RV. PM lead seen. mild /mild-mod AI. small peric eff Echo 2019: mild LVH, nl EF. nl RV. mod LAE. sclerotic AV no stenosis, mild AI. mild MR. mod TR. RVSP 30-40. CXR: bilat effusions with adjcnt atx, coarse lung markings ? mild congestion ECG: AFL, V-paced acute CHF: -no prior h/o CHF -echo 08/09 with moderate (conc) LVH, mild /mild-mod AI--rpt study -BNP acutely markedly elevated vs prior, cxr congested -wt down -Appears euvolemic now clinically. Switch to PO 10/04 -prior cath with nonob CAD; MPI here 07/2018 with mild anterior ischemia--pt declined cath at that time. no suspected ACS sx, ecg v-paced. TnI negative. -Will discuss repeat ischemic evaluation with her as outpatient. CAD: -as above -cont home bb (sotalol), statin, NOAC PAF, PPM: -on sotalol at home--continue same here -cont home eliquis HTN: -bp reasonable -cont home meds, observe
--- NOTE | 2019-10-03 14:01 | ECHO ---
Version: 1 Name: GEE JEROME Exam: Adult Echocardiogram Study Date: 10/03/2019, 9:51 AM Age: 79 Years MMode/2D Measurements & Calculations IVSd: 1.56 cm LVIDs: 2.37 cm LVIDd: 4.0 cm LVPWd: 1.26 cm LAV (MOD-bp): 108.0 ml ACS: 1.77 cm Ao root diam: 3.2 cm LVOT diam: 1.68 cm LA dimension: 4.7 cm Doppler Measurements & Calculations MV E max michel: 96.3 cm/sec MVA(VTI): 1.51 cm MV A max michel: 142.5 cm/sec MV V2 max: 146.7 cm/sec MV mean P.5 mmHg MV max P.6 mmHg MV E/A: 0.68 Med E/e': 42.9 Lat E/e': 29.9 Med Peak E' Michel: 2.24 cm/sec Lat Peak E' Michel: 3.2 cm/sec MR max P.9 mmHg Ao max P.9 mmHg ARELY(I,D): 1.89 cm Ao mean P.3 mmHg LV V1 mean: 93.0 cm/sec Ao V2 max: 186.7 cm/sec LV V1 mean P.1 mmHg AI P1/2t: 544.8 msec PI end-d michel: 109.9 cm/sec TR max michel: 263.7 cm/sec TR max P.8 mmHg Procedure A complete two-dimensional transthoracic echocardiogram was performed (2D, M-mode, Doppler and color flow Doppler). Left Ventricle There is mild concentric left ventricular hypertrophy. Ejection Fraction = 55%. The left ventricular ejection fraction is normal. Grade I diastolic dysfunction, (abnormal relaxation pattern). Right Ventricle The right ventricle is normal in size and function. There is a pacemaker lead in the right ventricle . Atria The left atrium is moderately dilated. Right atrial size is normal. Mitral Valve There is moderate mitral annular calcification. There is mild mitral regurgitation. Tricuspid Valve The tricuspid valve is normal in structure and function. There is mild tricuspid regurgitation. Righ t ventricular systolic pressure is 38 mmhg. Aortic Valve There is moderate aortic sclerosis.;. Moderate aortic regurgitation. Pulmonic Valve The pulmonic valve is normal in structure and function. Great Vessels The aortic root is normal size. Pericardium/Pleura Small pericardial effusion (<1cm). Summary Statements There is mild concentric left ventricular hypertrophy. The left ventricular ejection fraction is normal. The right ventricle is normal in size and function. The left atrium is moderately dilated. There is moderate mitral annular calcification. There is mild mitral regurgitation. There is moderate aortic sclerosis.; Moderate aortic regurgitation. Small pericardial effusion (<1cm) Juan Alberto Galdamez 10/03/2019, 2:01 PM Ordering Physician: Cee Saravia Referring Physician: CEE CAMACHO Performed By: Sita Lobato
--- NOTE | 2019-10-03 15:06 | PN ---
Progress Note (short form) - Note Progress Note: PULMONARY CONSULTATION DICTATED 10/03/19 IMP DYSPNEA ACUTE CHF ASHD ILD PAF S/P PPM HTN HLD PLAN O2 LASIX CARDIAC W/U PFTS CHEST CT DR WOODWARD Problem List - Problems (1) New onset of congestive heart failure Code(s): I50.9 - HEART FAILURE, UNSPECIFIED (2) Afib Code(s): I48.91 - UNSPECIFIED ATRIAL FIBRILLATION Qualifiers: Atrial fibrillation type: paroxysmal Qualified Code(s): I48.0 - Paroxysmal atrial fibrillation (3) Coronary artery disease Code(s): I25.10 - ATHSCL HEART DISEASE OF [place] CORONARY ARTERY W/O ANG PCTRS Qualifiers: Coronary Disease-Associated Artery/Lesion type: [place] artery [place] vs. transplanted heart: [place] heart Associated angina: with stable angina Qualified Code(s): I25.118 - Atherosclerotic heart disease of [place] coronary artery with other forms of angina pectoris (4) Hyperlipidemia Code(s): E78.5 - HYPERLIPIDEMIA, UNSPECIFIED Qualifiers: Hyperlipidemia type: pure hypercholesterolemia Qualified Code(s): E78.00 - Pure hypercholesterolemia, unspecified; E78.0 - Pure hypercholesterolemia (5) Hypertension Code(s): I10 - ESSENTIAL (PRIMARY) HYPERTENSION Qualifiers: Hypertension type: essential hypertension Qualified Code(s): I10 - Essential (primary) hypertension (6) Pacemaker Code(s): Z95.0 - PRESENCE OF CARDIAC PACEMAKER (7) Shoulder pain Code(s): M25.519 - PAIN IN UNSPECIFIED SHOULDER Qualifiers: Chronicity: chronic Laterality: right Qualified Code(s): M25.511 - Pain in right shoulder; G89.29 - Other chronic pain; G89.29 - Other chronic pain
--- NOTE | 2019-10-03 15:56 | CONS ---
PULMONARY CONSULTATION DATE OF CONSULTATION: 10/03/2019 REFERRING PHYSICIAN: HISTORY: Patient is an 79-year-old [place] female with past medical history atrial fibrillation on Eliquis, status post permanent pacemaker, arthritis, hypertension, ASHD, hyperlipidemia. Admitted to [facility] with complaint of generalized weakness, shortness of breath for 1 day. Patient also complained of left-sided rib pain. Denies any nausea, vomiting, or diaphoresis. Denies any hemoptysis. On admission, she was noted to have increasing pulmonary vascular congestion and elevated BNP. She was evaluated by Cardiology and felt she had new onset congestive heart failure. Started on IV Lasix with good clinical response. The patient denies any history of recent travel. There is no history of DVT or PE in the past. Denies any previous history of congestive heart failure. Of note, she underwent a CAT scan of the chest in May, which revealed evidence of chronic interstitial lung disease. Patient states that she did not have any dyspnea on exertion prior to this most recent episode of 1 day. PAST MEDICAL HISTORY: Again, includes paroxysmal atrial fibrillation, status post permanent pacemaker, ASHD, GERD, hyperlipidemia, hypertension, and likely interstitial lung disease. REVIEW OF SYSTEMS: No orthopnea, no PND. Positive dyspnea on exertion. No cough, no hemoptysis, no abdominal pain, no lower extremity edema. CURRENT MEDICATIONS: Include Lidoderm patch, Tylenol, Diovan, Eliquis, DuoNeb, Betapace, Cardizem, Lasix, Isordil, Carafate, Protonix. SOCIAL HISTORY: Born in [place]. Moved to the [facility] greater than 40 years ago. No occupational exposures. PHYSICAL EXAMINATION: General: Patient is a well-developed, well-nourished female awake, alert in no acute distress. Vital Signs: She is currently afebrile. Blood pressure 146/63, respiratory rate is 18, O2 saturation is 98% on room air. HEENT: Normocephalic, atraumatic. Neck: Supple without any adenopathy. Heart: Regular S1, S2. Chest: A few bibasilar crackles. Abdomen: Soft. Bowel sounds are positive. Extremities: No cyanosis or edema. LABORATORIES: BUN 15, creatinine 0.8, WBC is 8, hemoglobin 12, hematocrit 37.5 with a platelet count of 243,000. BNP 4408. Chest x-ray: Cardiomegaly. Question bibasilar pleural effusions. IMPRESSION: 1. Dyspnea secondary to acute congestive heart failure. 2. Arteriosclerotic heart disease. 3. Interstitial lung disease. 4. Paroxysmal atrial fibrillation. 5. Status post permanent pacemaker. 6. Hypertension. 7. Hyperlipidemia. PLAN: Supplemental O2. Lasix. Further cardiac workup as per Cardiology. Obtain PFTs. Follow up chest CT. TERE WOODWARD M.D. [id number]
[2019-10-03] MEDS ORDERED: LIDOCAINE PATCH REMOVAL MC SCH (22:00)
[2019-10-04] MEDS: SUCRALFATE 1 GM/10 ML UNIT DOSE CUPS PO SCH (06:12)
[2019-10-04 09:43] LABS: BLOOD UREA NITROGEN 17.1 mg/dL (7-18); CALCIUM 8.5 mg/dL (8.5-10.1); CREATININE 0.8 mg/dL (0.55-1.3); POTASSIUM 3.7 mmol/L (3.5-5.1)
[2019-10-04] MEDS ORDERED: FUROSEMIDE 40 MG TABLET (FP) PO SCH (10:00)
--- NOTE | 2019-10-04 10:12 | DS ---
Physical Examination Vital Signs: Vital Signs Temperature 98.6 F 10/04/19 04:00 Pulse Rate 66 10/04/19 04:00 Respiratory Rate 18 10/04/19 04:00 Blood Pressure 144/67 10/04/19 04:00 O2 Sat by Pulse Oximetry (%) 98 10/03/19 09:00 Constitutional: Yes: No Distress Cardiovascular: Yes: Pulse Irregular Respiratory: Yes: CTA Bilaterally Gastrointestinal: Yes: Soft Renal/: Yes: WNL Musculoskeletal: Yes: WNL Extremities: Yes: WNL Edema: No Labs: CBC, BMP 10/03/19 07:50 10/04/19 08:54 Discharge Summary Problems reviewed: Yes Reason For Visit: CONGESTIVE HEART FAILURE Current Active Problems Diastolic CHF, acute on chronic (Acute) New onset of congestive heart failure (Acute) Procedures: Principal: ECHO/CXR Hospital Course: ADMITTED ACUTE CHF TREATED WITH IV LASIX AND 02 SUPPORT CARDIAC WORKUP Goals: LOW SALT DIET DAILY [facility]IGHT[facility] SEE DR NAIR IN 1 WEEK FOR LABS CHECK K+ AND RENAL FUNCTION. LOW SALT DIET Condition: Improved - Instructions Diet, Activity, Other Instructions: HOME HEALTH AID FOR ASSISTANCE AND COMPLIANCE WITH MEDS SEE DR NAIR IN 1 WEEK FOR LABS DAILY [facility] Referrals: Ellen Nair MD [Primary Care Provider] - Disposition: VNS/HOME HEALTH CARE - Home Medications Comprehensive Discharge Medication List: Ambulatory Orders Sotalol HCl [Betapace -] 80 mg PO BID #28 tablet 06/10/14 Valsartan [Diovan] 160 mg PO DAILY #14 tablet 03/15/15 Diltiazem Cd [Cardizem Cd -] 360 mg PO DAILY #30 cap.cd.24h 08/27/16 Pravastatin Sodium [Pravachol -] 40 mg PO HS 12/30/16 Apixaban [Eliquis -] 5 mg PO BID tablet 11/03/17 Esomeprazole Magnesium [Nexium 24Hr] 20 mg PO DAILY #30 capsule. 12/07/17 Sucralfate Oral Suspension [Carafate Oral Suspension -] 1 gm PO BID #1 bottle Isosorbide Dinitrate [Isordil] 5 mg PO BID #60 tablet 08/19/18 Acetaminophen [Tylenol .Regular Strength -] 650 mg PO Q4H PRN tablet 10/04/19 Albuterol 2.5/Ipratropium 0.5 [Duoneb -] 1 amp NEB Q6H PRN #120 amp 10/04/19 Furosemide [Lasix -] 40 mg PO DAILY #30 tablet 10/04/19 Nebulizer [Compact Compressor Nebulizer] 1 each MC BID #1 each 10/04/19
[2019-10-04] MEDS: PANTOPRAZOLE 40 MG TABLET PO SCH (10:40)
[2019-10-04] MEDS: VALSARTAN 160 MG TABLET (UD) PO SCH (10:41)
[2019-10-04] MEDS: APIXABAN 5 MG TABLET PO SCH (10:41)
[2019-10-04] MEDS: LIDOCAINE 5% TOPICAL PATCH TP SCH (10:41)
[2019-10-04] MEDS: ISOSORBIDE DINITRATE 5 MG TABLET PO SCH (10:41)
[2019-10-04] MEDS: SOTALOL HCL 80 MG TABLET (FP) PO SCH (10:42)
--- NOTE | 2019-10-04 11:09 | PN ---
Progress Note (short form) - Note Progress Note: s: no chest pain, palps, dizziness, dyspnea Current Medications Acetaminophen (Tylenol -) 650 mg PO Q4H PRN PRN Reason: PAIN Last Admin: 10/02/19 21:57 Dose: 650 mg Albuterol/Ipratropium (Duoneb -) 1 amp NEB Q6H PRN PRN Reason: SHORTNESS OF BREATH Apixaban (Eliquis -) 5 mg PO BID [facility] Last Admin: 10/04/19 10:41 Dose: 5 mg Diltiazem HCl (Cardizem Cd -) 360 mg PO DAILY [facility] Last Admin: 10/04/19 10:42 Dose: 360 mg Furosemide (Lasix -) 40 mg PO DAILY [facility] Last Admin: 10/04/19 10:40 Dose: 40 mg Isosorbide Dinitrate (Isordil -) 5 mg PO BIDISORDIL [facility] Last Admin: 10/04/19 10:41 Dose: 5 mg Lidocaine (Lidoderm Patch -) 1 patch TP DAILY [facility] Last Admin: 10/04/19 10:41 Dose: 1 patch Miscellaneous (Lidoderm Patch Removal) 1 each MC DAILY@2200 [facility] Last Admin: 10/03/19 22:15 Dose: 1 each Pantoprazole Sodium (Protonix -) 40 mg PO BID [facility] Last Admin: 10/04/19 10:40 Dose: 40 mg Sotalol HCl (Betapace -) 80 mg PO BID [facility] Last Admin: 10/04/19 10:42 Dose: 80 mg Sucralfate (Carafate Oral Suspension -) 1 gm PO BIDAC [facility] Last Admin: 10/04/19 06:12 Dose: 1 gm Valsartan (Diovan -) 160 mg PO DAILY [facility] Last Admin: 10/04/19 10:41 Dose: 160 mg Vital Signs Period Temp Pulse Resp BP Sys/Decker Pulse Ox Last 24 Hr 98.6 F-99.2 F 60-66 18-18 109-144/51-67 Constitutional: Yes: No Distress Eyes: Yes: Conjunctiva Clear Cardiovascular: Yes: Regular Rate and Rhythm Respiratory: Yes: CTA Bilaterally Gastrointestinal: Yes: Soft Edema: No Neurological: Yes: Alert, Oriented no jaundice, diaphoresis not agitated Assessment/Plan MPI 07/2018 (harman): mild anterior ischemia, nl EF Echo 07/2018: mod conc LVH. nl EF. nl RV. PM lead seen. mild /mild-mod AI. small peric eff Echo 2019: mild LVH, nl EF. nl RV. mod LAE. sclerotic AV no stenosis, mild AI. mild MR. mod TR. RVSP 30-40. CXR: bilat effusions with adjcnt atx, coarse lung markings ? mild congestion ECG: AFL, V-paced acute CHF: -no prior h/o CHF -echo 08/09 with moderate (conc) LVH, mild /mild-mod AI--rpt study -BNP acutely markedly elevated vs prior, cxr congested -wt down - appears euvolemic, now on PO lasix -prior cath with nonob CAD; MPI here 07/2018 with mild anterior ischemia--pt declined cath at that time. no suspected ACS sx, ecg v-paced. TnI negative. -Will discuss repeat ischemic evaluation with her as outpatient - f/u with Dr. Torres scheduled CAD: -as above -cont home bb (sotalol), statin, NOAC PAF, PPM: -on sotalol at home--continue same here -cont home eliquis HTN: -bp reasonable -cont home meds, observe
[2019-10-04 13:00] VITALS: BP 109/51; PULSE 61; TEMP 98.5
== END 2019-10-04 13:40 | disposition home health service (06) | DRG 291 ==
LOC: JER 09:53 → JERBED 14:09 → J5S 10-02 23:39
PROVIDERS: ADMIT Family Medicine; ATTEND Family Medicine
DX: I11.0 Hypertensive heart disease with heart failure (principal); I50.31 Acute diastolic (congestive) heart failure; J98.11 Atelectasis; I25.10 Atherosclerotic heart disease of native coronary artery without angina pectoris; E78.5 Hyperlipidemia, unspecified; I48.91 Unspecified atrial fibrillation; K76.0 Fatty (change of) liver, not elsewhere classified; K29.70 Gastritis, unspecified, without bleeding; Z95.0 Presence of cardiac pacemaker; Z85.828 Personal history of other malignant neoplasm of skin; Z87.891 Personal history of nicotine dependence
CPT/HCPCS: 36415; 71046-TC-FY; 80048; 80053; 81003; 82550; 83880; 84484; 85025; 85027; 87086; 93005; 93010; 93306-TC; 99285-25; J0131